=== PATIENT | female | born 1945 | race Caucasian/White ===

== ENCOUNTER 2017-01-06 07:40 | Day surgery (SDC) | payer OTHER ==
[~2017-01-06] VITALS: Ht 152.4 cm; Wt 95.0 kg
[~2017-01-06 07:40] MED LIST: ALBU18HF INH; AMLO-147; FLUT16SP17 NASAL; FLUT1DIS23 INH; MONT10TA21 PO
[2017-01-06] MEDS ORDERED: tylenol (09:39)
[2017-01-06] MEDS ORDERED: nifedipine (09:39)
[2017-01-06] MEDS ORDERED: hydrochlorothiazide (09:39)
[2017-01-06] MEDS ORDERED: losartan potassium (09:39)
[2017-01-06] MEDS ORDERED: atorvastatin (09:39)
[2017-01-06 09:59] VITALS: BP 239/100; PULSE 73; RESP 19
[2017-01-06 10:57] VITALS: BP 183/85; RESP 20
--- NOTE | 2017-01-07 05:42 | GILP ---
DATE OF PROCEDURE: 01/06/2017 PROCEDURE PERFORMED: Colonoscopy and polypectomy. Surgeon, Dae Kebede MD. PREOPERATIVE DIAGNOSIS: Screening colonoscopy. POSTOPERATIVE DIAGNOSES: 1. Colonoscopy all the way to the cecum. Sigmoid colon polyp was removed using the snare and electrocautery. 2. Diverticulosis of the colon. 3. Internal hemorrhoids. INDICATION: Ms. Prosper Gan is a 71-year-old female patient who was scheduled for screening colonoscopy. The procedure and possible complications were well explained to the patient. She understood and consented to the procedure. DESCRIPTION OF PROCEDURE: Under the influence of anesthesia, the colonoscope was carefully introduced in the rectum and under direct vision it was advanced all the way to the cecum. FINDINGS: There is a sigmoid colon polyp and it was removed using the snare and electrocautery. She was noted to have diverticulosis of the colon and internal hemorrhoids. She tolerated the procedure very well. There is no complications from the procedure. At the end of procedure she was awake with stable vital signs and she was discharged home in the care of her family. IMPRESSION: Please see postop diagnoses. PLAN: Await histopathology report. Next screening colonoscopy in 5 years. Dictated By: MD YUSEF Bird/luis e/adry /Document#: [id number]
[2017-01-07] MEDS ORDERED: LIDOCAINE 2% (SDV) 5 ML INJ ONE (18:02)
[2017-01-07] MEDS ORDERED: PROPOFOL 40 ML ONE (18:02)
== END 2017-01-06 10:51 | disposition home or self-care (01) ==
LOC: GIL 07:40
PROVIDERS: ATTEND Internal Medicine Gastroenterology
DX: Z12.11 Encounter for screening for malignant neoplasm of colon (principal); K57.90 Diverticulosis of intestine, part unspecified, without perforation or abscess without bleeding; K64.8 Other hemorrhoids; I10 Essential (primary) hypertension; E78.5 Hyperlipidemia, unspecified; E66.01 Morbid (severe) obesity due to excess calories; Z68.41 Body mass index [BMI] 40.0-44.9, adult; J45.909 Unspecified asthma, uncomplicated
CPT/HCPCS: 88305

== ENCOUNTER 2018-05-12 07:18 | Inpatient (IN) | END 2018-05-14 21:12 | DRG 470 ==

== ENCOUNTER 2018-11-22 11:48 | Inpatient (IN) | payer OTHER ==
[~2018-11-22] VITALS: Ht 157.5 cm; Wt 94.5 kg
[~2018-11-22 11:48] MED LIST changes: -ALBU18HF INH; +ALBU18HF INHALATION; -AMLO-147; +ATOR10TA65 PO; -FLUT16SP17 NASAL; -FLUT1DIS23 INH; +FOLI1CAP PO; +HYDR25TA6 PO; +LOSA100T15 PO; -MONT10TA21 PO
[2018-11-22 11:51] VITALS: Ht 157.5 cm; Wt 94.5 kg
--- NOTE | 2018-11-22 12:04 | ERD ---
ER Documentation Chief Complaint Chief Complaint chest pain, sob sent by pmd BEBETO The patient is a 72-year-old female, presenting to the ER because of substernal chest pain and acute dyspnea for the last 4 days, worse with exertion, complains of orthopnea, PND. He had similar symptoms previously, denies fever, chills, neck pain, abdominal pain, vomiting, dizzy, diarrhea. She did not take her medication this morning and went to see her doctor who sent her to the emergency department Past medical history: Dyslipidemia, hypertension, asthma, history of CHF, CKD, anemia, history of left peroneal vein thrombosis, hypothyroidism Surgical history: Left knee arthroplasty ROS All systems reviewed and are negative except as per history of present illness. Medications Home Meds Reported Medications Brinzolamide-Brimonidine (Simbrinza 1%-0.2% Oph) 1%-0.2% - 8 Ml Drops.susp, 1 DROP BOTH EYES TID, EA 11/22/18 Albuterol Sulfate* (Proair HFA*) 8.5 Gm Hfa.aer.ad, 2 PUFF INH Q4H PRN for WHEEZING AND SOB, #1 INHALER 11/22/18 Pantoprazole* (Pantoprazole*) 40 Mg Tablet.dr, 40 MG PO AC BREAKFAST, TAB 11/22/18 Nifedipine* (Nifedipine ER*) 30 Mg Tablet.sa, 30 MG PO DAILY, TAB.SA 11/22/18 [Nephro-Justo] No Conflict Check, 1 TAB PO DAILY PRN for DIRECTED 11/22/18 Losartan Potassium* (Losartan Potassium*) 50 Mg Tablet, 50 MG PO DAILY, TAB 11/22/18 Levothyroxine Sodium* (Levothyroxine Sodium*) 25 Mcg Tablet, 25 MCG PO BEFORE BREAKFAST, #30 TAB 11/22/18 Isosorbide Dinitrate* (Isordil*) 40 Mg Tablet, 40 MG PO TID, TAB 11/22/18 Hydralazine Hcl* (Hydralazine Hcl*) 100 Mg Tablet, 100 MG PO BID, #90 TAB 11/22/18 Furosemide* (Furosemide*) 40 Mg Tablet, 40 MG PO DAILY, TAB 11/22/18 Ferrous Sulfate* (Ferrous Sulfate*) 325 Mg Tabec, 325 MG PO DAILY, TAB 11/22/18 Clopidogrel Bisulfate* (Clopidogrel Bisulfate*) 75 Mg Tablet, 75 MG PO DAILY, #30 TAB 11/22/18 Carvedilol* (Carvedilol*) 6.25 Mg Tablet, 6.25 MG PO BID, #60 TAB 11/22/18 Capsaicin (Capsaicin) 42.5 Gm Cream.gm., 1 APPLIC TOP QID, #1 TUB 11/22/18 Atorvastatin Calcium (Atorvastatin Calcium) 10 Mg Tablet, 10 MG PO QHS, #30 TAB 11/22/18 Salmeterol Xinaf-Fluticasone* (Advair*) 100/50 Diskus Inhaler, 1 INH INHALATION BID, #1 INHALER 11/22/18 Discontinued Reported Medications Folic Acid/Vitamin B Comp W-C (Nephrocaps Capsule) 1 Mg Capsule, 1 MG PO DAILY, CAP 05/12/18 Hydrochlorothiazide* (Hydrochlorothiazide*) 25 Mg Tab, 25 MG PO DAILY, #30 TAB 05/12/18 Atorvastatin Calcium (Atorvastatin Calcium) 10 Mg Tablet, 10 MG PO QHS, #30 TAB 05/12/18 Albuterol Sulfate* (Ventolin HFA*) 18 Gm Hfa.aer.ad, 2 PUFF INHALATION Q4H, #1 INHALER 05/12/18 Losartan Potassium* (Losartan Potassium*) 100 Mg Tablet, 100 MG PO DAILY, TAB 05/12/18 Allergies Allergies: Coded Allergies: No Known Allergy (Unverified , 11/22/18) PMhx/Soc History of Surgery: Yes (LT knee 04/11/18) Anesthesia Reaction: No Hx Neurological Disorder: No Hx Respiratory Disorders: Yes (asthma) Hx Cardiac Disorders: Yes (HTN) Hx Psychiatric Problems: No Hx Miscellaneous Medical Probl: No Hx Alcohol Use: No Hx Substance Use: No Hx Tobacco Use: No Physical Exam Vitals Vital Signs Date Temp Pulse Resp B/P (MAP) Pulse Ox O2 O2 Flow FiO2 Time Delivery Rate 11/22/18 73 18 195/97 98 Nasal 13:26 (129) Cannula 11/22/18 74 18 184/105 98 Nasal 13:08 (131) Cannula 11/22/18 Nasal 2 12:20 Cannula 11/22/18 99.8 77 22 249/116 96 11:51 (160) Physical Exam Const: No acute distress. Head: Atraumatic. Eyes: Normal Conjunctiva. ENT: Normal External Ears, Nose and Mouth. Neck: Full range of motion. No meningismus. Resp: Bibasilar crackle Cardio: Regular rate and rhythm. Abd: Soft, non distended, normal bowel sounds, non tender. Skin: No petechiae or rashes. Back: No midline or flank tenderness. Ext: Mild bilateral leg edema, no calf tenderness Neur: Awake and alert. No focal deficit Psych: Normal Mood and Affect. Result Diagram: 11/22/18 1215 11/22/18 1215 Results 24 hrs Laboratory Tests Test 11/22/18 12:15 White Blood Count 6.2 10^3/ul Red Blood Count 3.30 10^6/ul Hemoglobin 9.7 g/dl Hematocrit 31.5 % Mean Corpuscular Volume 95.5 fl Mean Corpuscular Hemoglobin 29.4 pg Mean Corpuscular Hemoglobin Concent 30.8 g/dl Red Cell Distribution Width 14.1 % Platelet Count 233 10^3/UL Mean Platelet Volume 10.5 fl Immature Granulocytes % 0.500 % Neutrophils % 61.8 % Lymphocytes % 24.7 % Monocytes % 10.2 % Eosinophils % 1.8 % Basophils % 1.0 % Nucleated Red Blood Cells % 0.0 /100WBC Immature Granulocytes # 0.030 10^3/ul Neutrophils # 3.8 10^3/ul Lymphocytes # 1.5 10^3/ul Monocytes # 0.6 10^3/ul Eosinophils # 0.1 10^3/ul Basophils # 0.1 10^3/ul Nucleated Red Blood Cells # 0.0 10^3/ul Prothrombin Time 13.0 Sec Prothrombin Time Ratio 1.0 INR International Normalized Ratio 0.97 Activated Partial Thromboplast Time 32.8 Sec Sodium Level 145 mmol/L Potassium Level 4.8 mmol/L Chloride Level 112 mmol/L Carbon Dioxide Level 25 mmol/L Anion Gap 8 Blood Urea Nitrogen 39 mg/dl Creatinine 1.81 mg/dl Est Glomerular Filtrat Rate mL/min mL/min Glucose Level 97 mg/dl Calcium Level 8.6 mg/dl Total Bilirubin 0.3 mg/dl Direct Bilirubin 0.00 mg/dl Indirect Bilirubin 0.3 mg/dl Aspartate Amino Transf (AST/SGOT) 30 IU/L Alanine Aminotransferase (ALT/SGPT) 25 IU/L Alkaline Phosphatase 118 IU/L Troponin I < 0.012 ng/ml B-Type Natriuretic Peptide 3230 PG/ML Total Protein 8.0 g/dl Albumin 4.0 g/dl Globulin 4.00 g/dl Albumin/Globulin Ratio 1.00 Current Medications Medications Dose Sig/Nay Start Time Status Last (Trade) Ordered Route PRN Stop Time Admin Dose Reason Admin Aspirin 162 mg ONCE ONCE 11/22/18 DC 11/22/18 (Aspirin) PO 12:30 12:23 11/22/18 12:31 250 ml @ 0 TITRATE IV 11/22/18 11/22/18 Nitroglycerin mls/hr 12:30 12:34 / Dextrose Furosemide 40 mg ONCE ONCE 11/22/18 (Lasix) IV 14:30 11/22/18 14:31 Procedures/[place] [id number] Radiology Main Line: [phone] DIAGNOSTIC IMAGING REPORT Patient: FELIX WINTER : 1945 Age: 73 Sex: F MR #: [id number] DOS: 11/22/18 1212 Ordering MD: TERRANCE VO MD Location: E/R Room/Bed: PROCEDURE: XR Chest. CLINICAL INDICATION: SOB. TECHNIQUE: Single view chest x-ray. COMPARISON: SD CR CHEST 09/18/2017; CR PORT CHEST 07/27/2009 FINDINGS: Lines/Tubes: None. Mildly enlarged cardiac silhouette. Aortic atherosclerosis. No consolidation, pleural effusion, or pneumothorax is seen. The osseous structures are unremarkable. IMPRESSION: 1. No radiographic evidence of an acute cardiopulmonary process. 2. Mildly enlarged cardiac silhouette. Aortic atherosclerosis. RPTAT: BBDD Physician Renuka Date Time Electronically viewed and signed by Physician Renuka on 11/22/2018 13 :01 RP/ CC: TERRANCE VO MD [id number] EKG: Read by emergency physician Rate/Rhythm: Normal Sinus Rhythm 77beats/min QRS, ST, T-waves: No ST elevation, no T inversion Impression: Normal EKG MEDICAL MAKING DECISION: Patient is a 73-year-old female, presenting with acute hypertensive emergency, acute CHF exacerbation, acute chest pain. She was treated with nitroglycerin drip, aspirin 162 mg p.o. and Lasix 40 mg IV with good response The differential diagnoses considered include but are not limited to ACS, medical/dietary noncompliance, asthma, COPD, pneumonia, pulmonary embolus, pleural effusion, congestive heart failure. Critical Care: Time: 35 minutes excluding all billable procedures. Treatments/Evaluations: Close monitoring and treatment of unstable vital signs, cardiorespiratory, and neurologic status, while maintaining tight balance of fluid, respiratory, and cardiac interventions. Departure Diagnosis: Primary Impression: Hypertensive emergency Additional Impressions: CHF (congestive heart failure) Chest pain Anemia Condition: Critical Comments I discussed the findings with the patient. I discussed the patient with Dr Garcia garcía at 2:20 PM, who was made aware of the lab, the treatment, the patient condition. The patient is admitted to ICU Disclaimer: Inadvertent spelling and grammatical errors are likely due to EHR/dictation software use and do not reflect on the overall quality of patient care. Also, please note that the electronic time recorded on this note does not necessarily reflect the actual time of the patient encounter. TERRANCE VO MD Nov 22, 2018 12:04
[2018-11-22] MEDS ORDERED: ASPIRIN 81 MG TAB PO ONE (12:30)
[2018-11-22] MEDS: NITROGLYCERIN 50 MG/D5W (PMX) 250 ML IV SCH ×2 (12:34→23:37)
[2018-11-22] MEDS ORDERED: ATOR10TA65 PO (12:46)
[2018-11-22] MEDS ORDERED: ADV10050 INHALATION (12:46)
[2018-11-22] MEDS ORDERED: CAPS42.510 TOP (12:47)
[2018-11-22] MEDS ORDERED: CLOP75TA19 PO (12:50)
[2018-11-22] MEDS ORDERED: CARV6.2579 PO (12:50)
[2018-11-22] MEDS ORDERED: FER325 PO (12:51)
[2018-11-22] MEDS ORDERED: FURO40TA4 PO (12:52)
[2018-11-22] MEDS ORDERED: HYDR100T25 PO (12:52)
[2018-11-22] MEDS ORDERED: ISOS40TA15 PO (12:53)
[2018-11-22] MEDS ORDERED: LEVO25TA6 PO (12:54)
[2018-11-22] MEDS ORDERED: LOSA50TA14 PO (12:55)
[2018-11-22] MEDS ORDERED: NEPHRO-VITE PO (12:56)
[2018-11-22] MEDS ORDERED: NIFE30TA23 PO (12:56)
[2018-11-22] MEDS ORDERED: ALBU8.5H8 INH (12:57)
[2018-11-22] MEDS ORDERED: PANT40TA4 PO (12:57)
[2018-11-22] MEDS ORDERED: BRIN8DRO BOTH EYES (12:58)
[2018-11-22] MEDS ORDERED: FUROSEMIDE 40 MG INJ IV ONE ×2 (14:30→20:30)
--- NOTE | 2018-11-22 18:12 | HP ---
Date/Time of Note Date/Time of Note DATE: 11/22/18 TIME: 18:08 Assessment/Plan VTE Prophylaxis SCD applied (from Nsg): Yes Pharmacological prophylaxis: LMWH Lines/Catheters IV Catheter Type (from Nrsg): Peripheral IV Assessment/Plan Assessment/Plan -Chest pain, rule out acute coronary syndrome. Will obtain cardiac enzymes every 8 hours x3. Continue aspirin, nitroglycerin, morphine as needed for pain. Dr. Wren is asked to see patient in cardiology consultation. -Hypertensive emergency. Continue nitroglycerin gtt. Continue Coreg and Procardia. 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 -Dyslipidemia. -Hypothyroidism, continue levothyroxine -Anemia, multifactorial, iron deficiency anemia and of chronic disease -History of total knee replacement -PVD -Obesity with BMI of 38.1. -Asthma Further recommendations based on clinical course. Plan of care discussed with Dr. Segovia. Result Diagram: 11/22/18 1215 11/22/18 1215 Results 24hrs Laboratory Tests Test 11/22/18 12:15 White Blood Count 6.2 Red Blood Count 3.30 L Hemoglobin 9.7 L Hematocrit 31.5 L Mean Corpuscular Volume 95.5 Mean Corpuscular Hemoglobin 29.4 Mean Corpuscular Hemoglobin Concent 30.8 L Red Cell Distribution Width 14.1 Platelet Count 233 # Mean Platelet Volume 10.5 H Immature Granulocytes % 0.500 H Neutrophils % 61.8 Lymphocytes % 24.7 Monocytes % 10.2 Eosinophils % 1.8 Basophils % 1.0 Nucleated Red Blood Cells % 0.0 Immature Granulocytes # 0.030 Neutrophils # 3.8 Lymphocytes # 1.5 Monocytes # 0.6 Eosinophils # 0.1 Basophils # 0.1 Nucleated Red Blood Cells # 0.0 Prothrombin Time 13.0 Prothrombin Time Ratio 1.0 INR International Normalized Ratio 0.97 Activated Partial Thromboplast Time 32.8 Sodium Level 145 H Potassium Level 4.8 Chloride Level 112 H Carbon Dioxide Level 25 Anion Gap 8 Blood Urea Nitrogen 39 H Creatinine 1.81 H Est Glomerular Filtrat Rate mL/min Glucose Level 97 Calcium Level 8.6 Total Bilirubin 0.3 Direct Bilirubin 0.00 Indirect Bilirubin 0.3 Aspartate Amino Transf (AST/SGOT) 30 Alanine Aminotransferase (ALT/SGPT) 25 Alkaline Phosphatase 118 Troponin I < 0.012 B-Type Natriuretic Peptide 3230 H Total Protein 8.0 Albumin 4.0 Globulin 4.00 H Albumin/Globulin Ratio 1.00 HPI/ROS Admit Date/Time Admit Date/Time Hx of Present Illness The patient is 73-year-old female with history of hypertension, hyperlipidemia, congestive heart failure, chronic kidney disease, asthma, hypothyroidism, peripheral vascular disease and obesity. Patient developed substernal chest pain with acute dyspnea for the last couple of days and was seen in PMD office from which patient was sent for evaluation in the emergency room. Pain is substernal, currently constant, 7 out of 10 with no radiation. Patient also stated that she get shortness of breath with activity. In the emergency room patient noted to have hypertensive emergency and was started on nitroglycerin drip also given aspirin and Lasix. Patient denies any fever chills denies nausea vomiting diarrhea constipation. Patient will be admitted for further evaluation and management to telemetry floor. ROS 12 point review of system is negative except for what mentioned in HPI PMH/Family/Social Past Medical History Dyslipidemia, hypertension, asthma, history of CHF, CKD, anemia, history of left peroneal vein thrombosis, hypothyroidism Medications Current Medications Nitroglycerin/ Dextrose 250 ml @ 0 mls/hr TITRATE IV Last administered on 11/22/18at 12:34; Admin Dose 1.5 MLS/HR; Start 11/22/18 at 12:30 Coded Allergies: No Known Allergy (Unverified , 11/22/18) Past Surgical History Past Surgical Hx: other (Left knee arthroplasty in April 2018) Family History Significant Family History: no pertinent family hx Social History Alcohol Use: none Smoking Status: Never smoker Drug Use: none Exam/Review of Systems Vital Signs Vitals Vital Signs Date Temp Pulse Resp B/P (MAP) Pulse Ox O2 O2 Flow FiO2 Time Delivery Rate 11/22/18 99.8 70 25 180/86 96 Nasal 2.0 18:05 (117) Cannula Exam Constitutional: alert, oriented Head: normocephalic Neck: supple Respiratory: diminished breath sounds Cardiovascular: regular rate and rhythm Gastrointestinal: soft, non-tender Musculoskeletal: nl extremities to inspection Extremities: edema Neurological: nl mental status Skin: nl TRICE Mcdaniel Nov 22, 2018 18:12
[2018-11-22] MEDS ORDERED: NON-FORMULARY/PATIENT OWN MED ([Nephro-Vite] 1 TAB) PO PRN (18:30)
[2018-11-22] MEDS ORDERED: NACL 0.9% 3 ML SYG IV SCH (20:30)
[2018-11-22] MEDS ORDERED: ONDANSETRON 4 MG INJ IV PRN (20:30)
[2018-11-22] MEDS ORDERED: morphine 2 MG INJ IV PRN (20:30)
[2018-11-22] MEDS ORDERED: NITROGLYCERIN (SL) 0.4 MG TAB SL PRN (20:30)
[2018-11-22] MEDS ORDERED: MAGNESIUM HYDROXIDE 30ML CUP PO PRN (20:30)
[2018-11-22] MEDS ORDERED: ACETAMINOPHEN 325 MG TAB PO PRN (20:30)
[2018-11-22] MEDS ORDERED: DOCUSATE SODIUM 100 MG CAP PO PRN (20:30)
[2018-11-22] MEDS ORDERED: NON-FORMULARY/PATIENT OWN MED (Salmeterol Xinaf-Fluticasone* (Advair*) 1 INH) INHALATION SCH (21:00)
[2018-11-22] MEDS ORDERED: ISOSORBIDE DINITRATE 40 MG PO SCH (21:00)
[2018-11-22] MEDS: ATORVASTATIN 10 MG TAB PO SCH (21:27)
[2018-11-22] MEDS: FAMOTIDINE 20 MG TAB PO SCH (21:27)
[2018-11-22 23:16] VITALS: BP 149/85; RESP 18
[2018-11-22 23:30] VITALS: BP 146/75; PULSE 85; RESP 17
[2018-11-22 23:45] VITALS: BP 125/57; PULSE 80; RESP 21
[2018-11-23] VITALS (38 sets, daily range): BP systolic 103–171; BP diastolic 53–99; PULSE 60–89; RESP 10–34
[2018-11-23] MEDS: ZOLPIDEM 5 MG TAB PO PRN ×2 (00:20→22:26)
[2018-11-23] MEDS: ALBUTEROL HFA 8 GM INHALER INH PRN ×3 (00:28→14:56)
[2018-11-23] MEDS: LEVOTHYROXINE 25 MCG TAB PO SCH (06:40)
[2018-11-23] MEDS: PANTOPRAZOLE (EC) 40 MG TAB PO SCH (06:40)
[2018-11-23] MEDS: FERROUS SULFATE (EC) 325 MG TAB PO SCH (08:39)
[2018-11-23] MEDS: HYDROCODONE/APAP (5/325) TAB PO PRN ×2 (08:40→16:54)
[2018-11-23] MEDS: ASPIRIN 81 MG TAB PO SCH (08:40)
[2018-11-23] MEDS: CLOPIDOGREL 75 MG TAB PO SCH (08:41)
[2018-11-23] MEDS: LOSARTAN 50 MG TAB PO SCH (08:41)
[2018-11-23] MEDS: FLUTICASONE/VILANTEROL 100-25 INH SCH (10:00)
--- NOTE | 2018-11-23 11:00 | CONS ---
Consultation Date/Type/Reason Admit Date/Time Type of Consult Cardiology Date/Time of Note DATE: 11/23/18 TIME: 11:00 Hx of Present Illness r/o LA, con't HTN Rx # [id number] full note dictated Past Medical History Home Meds Reported Medications Brinzolamide-Brimonidine (Simbrinza 1%-0.2% Oph) 1%-0.2% - 8 Ml Drops.susp, 1 DROP BOTH EYES TID, EA 11/22/18 Albuterol Sulfate* (Proair HFA*) 8.5 Gm Hfa.aer.ad, 2 PUFF INH Q4H PRN for WHEEZING AND SOB, #1 INHALER 11/22/18 Pantoprazole* (Pantoprazole*) 40 Mg Tablet.dr, 40 MG PO AC BREAKFAST, TAB 11/22/18 Nifedipine* (Nifedipine ER*) 30 Mg Tablet.sa, 30 MG PO DAILY, TAB.SA 11/22/18 [Nephro-Justo] No Conflict Check, 1 TAB PO DAILY PRN for DIRECTED 11/22/18 Losartan Potassium* (Losartan Potassium*) 50 Mg Tablet, 50 MG PO DAILY, TAB 11/22/18 Levothyroxine Sodium* (Levothyroxine Sodium*) 25 Mcg Tablet, 25 MCG PO BEFORE BREAKFAST, #30 TAB 11/22/18 Isosorbide Dinitrate* (Isordil*) 40 Mg Tablet, 40 MG PO TID, TAB 11/22/18 Hydralazine Hcl* (Hydralazine Hcl*) 100 Mg Tablet, 100 MG PO BID, #90 TAB 11/22/18 Furosemide* (Furosemide*) 40 Mg Tablet, 40 MG PO DAILY, TAB 11/22/18 Ferrous Sulfate* (Ferrous Sulfate*) 325 Mg Tabec, 325 MG PO DAILY, TAB 11/22/18 Clopidogrel Bisulfate* (Clopidogrel Bisulfate*) 75 Mg Tablet, 75 MG PO DAILY, #30 TAB 11/22/18 Carvedilol* (Carvedilol*) 6.25 Mg Tablet, 6.25 MG PO BID, #60 TAB 11/22/18 Capsaicin (Capsaicin) 42.5 Gm Cream.gm., 1 APPLIC TOP QID, #1 TUB 11/22/18 Atorvastatin Calcium (Atorvastatin Calcium) 10 Mg Tablet, 10 MG PO QHS, #30 TAB 11/22/18 Salmeterol Xinaf-Fluticasone* (Advair*) 100/50 Diskus Inhaler, 1 INH INHALATION BID, #1 INHALER 11/22/18 Discontinued Reported Medications Folic Acid/Vitamin B Comp W-C (Nephrocaps Capsule) 1 Mg Capsule, 1 MG PO DAILY, CAP 05/12/18 Hydrochlorothiazide* (Hydrochlorothiazide*) 25 Mg Tab, 25 MG PO DAILY, #30 TAB 05/12/18 Atorvastatin Calcium (Atorvastatin Calcium) 10 Mg Tablet, 10 MG PO QHS, #30 TAB 05/12/18 Albuterol Sulfate* (Ventolin HFA*) 18 Gm Hfa.aer.ad, 2 PUFF INHALATION Q4H, #1 INHALER 05/12/18 Losartan Potassium* (Losartan Potassium*) 100 Mg Tablet, 100 MG PO DAILY, TAB 05/12/18 Medications Current Medications Albuterol (Ventolin Hfa) 2 puff Q4H RESP THERAPY PRN INH WHEEZING AND SOB Last administered on 11/23/18at 04:41; Admin Dose 2 PUFF; Start 11/22/18 at 18:30 Atorvastatin Calcium (Lipitor) 10 mg QHS PO Last administered on 11/22/18 21:27; Admin Dose 10 MG; Start 11/22/18 at 21:00 Carvedilol (Coreg) 6.25 mg BID PO Last administered on 11/23/18 08:40; Admin Dose 6.25 MG; Start 11/22/18 at 21:00 Clopidogrel Bisulfate (plaVIX) 75 mg DAILY PO Last administered on 11/23/18at 08:41; Admin Dose 75 MG; Start 11/23/18 at 09:00 Ferrous Sulfate (Ferrous Sulfate (Ec)) 325 mg DAILY PO Last administered on 11/23/18 08:39; Admin Dose 325 MG; Start 11/23/18 at 09:00 Furosemide (Lasix) 40 mg DAILY PO ; Start 11/23/18 at 09:00 Hydralazine HCl (Apresoline) 100 mg BID PO Last administered on 11/23/18 08:39; Admin Dose 100 MG; Start 11/22/18 at 21:00 Levothyroxine Sodium (Synthroid) 25 mcg BEFORE BREAKFAST PO Last administered on 11/23/18at 06:40; Admin Dose 25 MCG; Start 11/23/18 at 07:00 Losartan Potassium (Cozaar) 50 mg DAILY PO Last administered on 11/23/18 08:41; Admin Dose 50 MG; Start 11/23/18 at 09:00 Pantoprazole (Protonix Tab) 40 mg AC BREAKFAST PO Last administered on 11/23/18 06:40; Admin Dose 40 MG; Start 11/23/18 at 07:00 IV Flush (NS 3 ml) 3 ml PER PROTOCOL IV ; Start 11/22/18 at 20:30 Ondansetron HCl (Zofran Inj) 4 mg Q6H PRN IV NAUSEA/VOMITING; Start 11/22/18 at 20:30 Aspirin (Aspirin) 81 mg DAILY PO Last administered on 11/23/18 08:40; Admin Dose 81 MG; Start 11/23/18 at 09:00 Nitroglycerin (Nitroglycerin (Sl Tab) 0.4 Mg) 1 tab Q5M PRN SL .CHEST PAIN; Start 11/22/18 at 20:30 Acetaminophen (Tylenol Tab) 650 mg Q6H PRN PO .PAIN 1-3 OR TEMP; Start 11/22/18 at 20:30 Acetaminophen/ Hydrocodone Bitart ([place] (5/325)) 1 tab Q6H PRN PO .PAIN 4-6 Last administered on 11/23/18at 08:40; Admin Dose 1 TAB; Start 11/22/18 at 20:30 Morphine Sulfate (morphine) 2 mg Q4H PRN IV .PAIN 7-10; Start 11/22/18 at 20:30 Zolpidem Tartrate (Ambien) 5 mg QHS PRN PO .INSOMNIA Last administered on 11/23/18at 00:20; Admin Dose 5 MG; Start 11/22/18 at 20:30 Docusate Sodium (Colace) 100 mg Q12H PRN PO .CONSTIPATION; Start 11/22/18 at 20:30 Magnesium Hydroxide (Milk Of Mag) 30 ml DAILY PRN PO .CONSTIPATION; Start 11/13 at 20:30 Famotidine (Pepcid) 20 mg Q24H PO Last administered on 11/22/18at 21:27; Admin Dose 20 MG; Start 11/22/18 at 21:00 Multivit/Ca Carb/ B Cmplx/FA/Prenat (Wen-Justo) 1 tab DAILY PO ; Start 11/23/18 at 09:00 Isosorbide Dinitrate (Isordil) 40 mg TID PO ; Start 11/23/18 at 09:00 Fluticasone/ Vilanterol (Breo Ellipta 100-25 Mcg Inh) 1 inh DAILY INH ; Start 11/23/18 at 10:00 Allergies: Coded Allergies: No Known Allergy (Unverified , 11/22/18) Past Surgical History Past Surgical Hx: other (Left knee arthroplasty in April 2018) Social History Alcohol Use: none Smoking Status: Never smoker Drug Use: none Exam/Review of Systems Vital Signs Vitals Vital Signs Date Temp Pulse Resp B/P (MAP) Pulse Ox O2 O2 Flow FiO2 Time Delivery Rate 11/23/18 98.8 80 24 171/99 98 Nasal 2.0 08:00 (123) Cannula Intake and Output 11/22/18 11/22/18 11/23/18 1515:00 23:00 07:00 IntakeIntake Total 190 ml BalanceBalance 190 ml Labs Result Diagram: 11/23/18 0525 11/23/18 0525 Results 24hrs Laboratory Tests Test 11/22/18 12:15 11/23/18 00:30 11/23/18 05:25 White Blood Count 6.2 7.1 Red Blood Count 3.30 L 2.94 L Hemoglobin 9.7 L 8.7 L Hematocrit 31.5 L 28.0 L Mean Corpuscular Volume 95.5 95.2 Mean Corpuscular Hemoglobin 29.4 29.6 Mean Corpuscular Hemoglobin Concent 30.8 L 31.1 L Red Cell Distribution Width 14.1 14.2 Platelet Count 233 # 224 Mean Platelet Volume 10.5 H 10.9 H Immature Granulocytes % 0.500 H 0.400 Neutrophils % 61.8 67.8 Lymphocytes % 24.7 16.9 Monocytes % 10.2 13.2 H Eosinophils % 1.8 1.0 Basophils % 1.0 0.7 Nucleated Red Blood Cells % 0.0 0.0 Immature Granulocytes # 0.030 0.030 Neutrophils # 3.8 4.8 Lymphocytes # 1.5 1.2 Monocytes # 0.6 0.9 Eosinophils # 0.1 0.1 Basophils # 0.1 0.1 Nucleated Red Blood Cells # 0.0 0.0 Prothrombin Time 13.0 Prothrombin Time Ratio 1.0 INR International Normalized Ratio 0.97 Activated Partial Thromboplast Time 32.8 Sodium Level 145 H 141 Potassium Level 4.8 4.3 Chloride Level 112 H 108 Carbon Dioxide Level 25 25 Anion Gap 8 8 Blood Urea Nitrogen 39 H 40 H Creatinine 1.81 H 1.95 H Est Glomerular Filtrat Rate mL/min Glucose Level 97 101 Calcium Level 8.6 8.8 Total Bilirubin 0.3 0.4 Direct Bilirubin 0.00 0.00 Indirect Bilirubin 0.3 0.4 Aspartate Amino Transf (AST/SGOT) 30 25 Alanine Aminotransferase (ALT/SGPT) 25 19 Alkaline Phosphatase 118 83 Troponin I < 0.012 < 0.012 < 0.012 B-Type Natriuretic Peptide 3230 H Total Protein 8.0 6.7 # Albumin 4.0 3.6 Globulin 4.00 H 3.10 Albumin/Globulin Ratio 1.00 1.16 Creatine Kinase 97 91 Creatine Kinase Index 1.8 1.9 Creatinine Kinase MB (Mass) 1.78 1.77 Hemoglobin A1c 5.5 Triglycerides Level 63 Cholesterol Level 133 LDL Cholesterol, Calculated 66 HDL Cholesterol 54 Cholesterol/HDL Ratio 2.4 Thyroid Stimulating Hormone (TSH) 4.190 Medications Medications Current Medications Albuterol (Ventolin Hfa) 2 puff Q4H RESP THERAPY PRN INH WHEEZING AND SOB Last administered on 11/23/18 04:41; Admin Dose 2 PUFF; Start 11/22/18 at 18:30 Atorvastatin Calcium (Lipitor) 10 mg QHS PO Last administered on 11/22/18 21:27; Admin Dose 10 MG; Start 11/22/18 at 21:00 Carvedilol (Coreg) 6.25 mg BID PO Last administered on 11/23/18 08:40; Admin Dose 6.25 MG; Start 11/22/18 at 21:00 Clopidogrel Bisulfate (plaVIX) 75 mg DAILY PO Last administered on 11/23/18 08:41; Admin Dose 75 MG; Start 11/23/18 at 09:00 Ferrous Sulfate (Ferrous Sulfate (Ec)) 325 mg DAILY PO Last administered on 11/23/18 08:39; Admin Dose 325 MG; Start 11/23/18 at 09:00 Furosemide (Lasix) 40 mg DAILY PO ; Start 11/23/18 at 09:00 Hydralazine HCl (Apresoline) 100 mg BID PO Last administered on 11/23/18at 08:39; Admin Dose 100 MG; Start 11/22/18 at 21:00 Levothyroxine Sodium (Synthroid) 25 mcg BEFORE BREAKFAST PO Last administered on 11/23/18 06:40; Admin Dose 25 MCG; Start 11/23/18 at 07:00 Losartan Potassium (Cozaar) 50 mg DAILY PO Last administered on 11/23/18 08:41; Admin Dose 50 MG; Start 11/23/18 at 09:00 Pantoprazole (Protonix Tab) 40 mg AC BREAKFAST PO Last administered on 11/23/18 06:40; Admin Dose 40 MG; Start 11/23/18 at 07:00 IV Flush (NS 3 ml) 3 ml PER PROTOCOL IV ; Start 11/22/18 at 20:30 Ondansetron HCl (Zofran Inj) 4 mg Q6H PRN IV NAUSEA/VOMITING; Start 11/22/18 at 20:30 Aspirin (Aspirin) 81 mg DAILY PO Last administered on 11/23/18at 08:40; Admin Dose 81 MG; Start 11/23/18 at 09:00 Nitroglycerin (Nitroglycerin (Sl Tab) 0.4 Mg) 1 tab Q5M PRN SL .CHEST PAIN; Start 11/22/18 at 20:30 Acetaminophen (Tylenol Tab) 650 mg Q6H PRN PO .PAIN 1-3 OR TEMP; Start 11/22/18 at 20:30 Acetaminophen/ Hydrocodone Bitart ([place] (5/325)) 1 tab Q6H PRN PO .PAIN 4-6 Last administered on 11/23/18at 08:40; Admin Dose 1 TAB; Start 11/22/18 at 20:30 Morphine Sulfate (morphine) 2 mg Q4H PRN IV .PAIN 7-10; Start 11/22/18 at 20:30 Zolpidem Tartrate (Ambien) 5 mg QHS PRN PO .INSOMNIA Last administered on 11/23/18at 00:20; Admin Dose 5 MG; Start 11/22/18 at 20:30 Docusate Sodium (Colace) 100 mg Q12H PRN PO .CONSTIPATION; Start 11/22/18 at 20:30 Magnesium Hydroxide (Milk Of Mag) 30 ml DAILY PRN PO .CONSTIPATION; Start 11/22/18 at 20:30 Famotidine (Pepcid) 20 mg Q24H PO Last administered on 11/22/18at 21:27; Admin Dose 20 MG; Start 11/22/18 at 21:00 Multivit/Ca Carb/ B Cmplx/FA/Prenat (Wen-Justo) 1 tab DAILY PO ; Start 11/23/18 at 09:00 Isosorbide Dinitrate (Isordil) 40 mg TID PO ; Start 11/23/18 at 09:00 Fluticasone/ Vilanterol (Breo Ellipta 100-25 Mcg Inh) 1 inh DAILY INH ; Start 11/23/18 at 10:00 ADONAY PATEL MD Nov 23, 2018 11:00
[2018-11-23] MEDS: FUROSEMIDE 40 MG TAB PO SCH (14:58)
[2018-11-23] MEDS: MULTIVIT/CA CARB/B CMPLX/FA TAB PO SCH (14:58)
[2018-11-23] MEDS: ISOSORBIDE DINITRATE 20 MG TAB PO SCH ×3 (14:58→20:47)
[2018-11-23] MEDS ORDERED: EPOETIN ALFA-EPBX (NON-ESRD 10,000 UNIT/ML VIAL SC ONE (15:00)
--- NOTE | 2018-11-23 16:35 | PN ---
Date/Time of Note Date/Time of Note DATE: 11/23/18 TIME: 16:34 Assessment/Plan VTE Prophylaxis Risk score (from Ns)>0 risk: 9 SCD applied (from Ns): Yes Pharmacological prophylaxis: LMWH Lines/Catheters IV Catheter Type (from Nrsg): Peripheral IV Urinary Cath still in place: No Assessment/Plan Hospital Course Patient is weaned off nitroglycerin drip, blood pressure is better controlled, patient still complains of 2 out of 10 chest pain and shortness of breath, continue to monitor blood pressure Assessment/Plan -Chest pain, rule out acute coronary syndrome. Will obtain cardiac enzymes every 8 hours x3. Continue aspirin, nitroglycerin, morphine as needed for pain. Dr. Wren is asked to see patient in cardiology consultation. -Hypertensive emergency. Continue nitroglycerin gtt. Continue Coreg and Procardia. 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 -Dyslipidemia. -Hypothyroidism, continue levothyroxine -Anemia, multifactorial, iron deficiency anemia and of chronic disease -History of total knee replacement -PVD -Obesity with BMI of 38.1. -Asthma Further recommendations based on clinical course. Plan of care discussed with Dr. Segovia. Result Diagram: 11/23/1852411/23/18524 Results 24hrs Laboratory Tests Test 11/23/18 00:30 11/23/18 05:25 11/23/18 12:22 Creatine Kinase 97 91 104 Creatine Kinase Index 1.8 1.9 1.6 Creatinine Kinase MB (Mass) 1.78 1.77 1.67 Troponin I < 0.012 < 0.012 < 0.012 White Blood Count 7.1 Red Blood Count 2.94 L Hemoglobin 8.7 L Hematocrit 28.0 L Mean Corpuscular Volume 95.2 Mean Corpuscular Hemoglobin 29.6 Mean Corpuscular Hemoglobin Concent 31.1 L Red Cell Distribution Width 14.2 Platelet Count 224 Mean Platelet Volume 10.9 H Immature Granulocytes % 0.400 Neutrophils % 67.8 Lymphocytes % 16.9 Monocytes % 13.2 H Eosinophils % 1.0 Basophils % 0.7 Nucleated Red Blood Cells % 0.0 Immature Granulocytes # 0.030 Neutrophils # 4.8 Lymphocytes # 1.2 Monocytes # 0.9 Eosinophils # 0.1 Basophils # 0.1 Nucleated Red Blood Cells # 0.0 Sodium Level 141 Potassium Level 4.3 Chloride Level 108 Carbon Dioxide Level 25 Anion Gap 8 Blood Urea Nitrogen 40 H Creatinine 1.95 H Est Glomerular Filtrat Rate mL/min Glucose Level 101 Hemoglobin A1c 5.5 Calcium Level 8.8 Total Bilirubin 0.4 Direct Bilirubin 0.00 Indirect Bilirubin 0.4 Aspartate Amino Transf (AST/SGOT) 25 Alanine Aminotransferase (ALT/SGPT) 19 Alkaline Phosphatase 83 Total Protein 6.7 # Albumin 3.6 Globulin 3.10 Albumin/Globulin Ratio 1.16 Triglycerides Level 63 Cholesterol Level 133 LDL Cholesterol, Calculated 66 HDL Cholesterol 54 Cholesterol/HDL Ratio 2.4 Thyroid Stimulating Hormone (TSH) 4.190 Exam/Review of Systems Exam Vitals Vital Signs Date Temp Pulse Resp B/P (MAP) Pulse Ox O2 O2 Flow FiO2 Time Delivery Rate 11/23/18 75 15 159/81 100 Nasal 13:00 (107) Cannula 11/23/18 98.8 2.0 08:00 Intake and Output 11/22/18 11/22/18 11/23/18 1515:00 23:00 07:00 IntakeIntake Total 190 ml BalanceBalance 190 ml Exam Constitutional: alert, oriented Head: normocephalic Neck: supple Respiratory: diminished breath sounds Cardiovascular: regular rate and rhythm Gastrointestinal: soft, non-tender Musculoskeletal: nl extremities to inspection Extremities: edema Neurological: nl mental status Skin: nl turgor Results Results 24hrs Laboratory Tests Test 11/23/18 00:30 11/23/18 05:25 11/23/18 12:22 Creatine Kinase 97 91 104 Creatine Kinase Index 1.8 1.9 1.6 Creatinine Kinase MB (Mass) 1.78 1.77 1.67 Troponin I < 0.012 < 0.012 < 0.012 White Blood Count 7.1 Red Blood Count 2.94 L Hemoglobin 8.7 L Hematocrit 28.0 L Mean Corpuscular Volume 95.2 Mean Corpuscular Hemoglobin 29.6 Mean Corpuscular Hemoglobin Concent 31.1 L Red Cell Distribution Width 14.2 Platelet Count 224 Mean Platelet Volume 10.9 H Immature Granulocytes % 0.400 Neutrophils % 67.8 Lymphocytes % 16.9 Monocytes % 13.2 H Eosinophils % 1.0 Basophils % 0.7 Nucleated Red Blood Cells % 0.0 Immature Granulocytes # 0.030 Neutrophils # 4.8 Lymphocytes # 1.2 Monocytes # 0.9 Eosinophils # 0.1 Basophils # 0.1 Nucleated Red Blood Cells # 0.0 Sodium Level 141 Potassium Level 4.3 Chloride Level 108 Carbon Dioxide Level 25 Anion Gap 8 Blood Urea Nitrogen 40 H Creatinine 1.95 H Est Glomerular Filtrat Rate mL/min Glucose Level 101 Hemoglobin A1c 5.5 Calcium Level 8.8 Total Bilirubin 0.4 Direct Bilirubin 0.00 Indirect Bilirubin 0.4 Aspartate Amino Transf (AST/SGOT) 25 Alanine Aminotransferase (ALT/SGPT) 19 Alkaline Phosphatase 83 Total Protein 6.7 # Albumin 3.6 Globulin 3.10 Albumin/Globulin Ratio 1.16 Triglycerides Level 63 Cholesterol Level 133 LDL Cholesterol, Calculated 66 HDL Cholesterol 54 Cholesterol/HDL Ratio 2.4 Thyroid Stimulating Hormone (TSH) 4.190 Medications Medication Current Medications Albuterol (Ventolin Hfa) 2 puff Q4H RESP THERAPY PRN INH WHEEZING AND SOB Last administered on 11/23/18 14:56; Admin Dose 2 PUFF; Start 11/22/18 at 18:30 Atorvastatin Calcium (Lipitor) 10 mg QHS PO Last administered on 11/22/18 21:27; Admin Dose 10 MG; Start 11/22/18 at 21:00 Carvedilol (Coreg) 6.25 mg BID PO Last administered on 11/23/18 08:40; Admin Dose 6.25 MG; Start 11/22/18 at 21:00 Clopidogrel Bisulfate (plaVIX) 75 mg DAILY PO Last administered on 11/23/18 08:41; Admin Dose 75 MG; Start 11/23/18 at 09:00 Ferrous Sulfate (Ferrous Sulfate (Ec)) 325 mg DAILY PO Last administered on 11/23/18 08:39; Admin Dose 325 MG; Start 11/23/18 at 09:00 Furosemide (Lasix) 40 mg DAILY PO Last administered on 11/23/18 14:58; Admin Dose 40 MG; Start 11/23/18 at 09:00 Hydralazine HCl (Apresoline) 100 mg BID PO Last administered on 11/23/18 08:39; Admin Dose 100 MG; Start 11/22/18 at 21:00 Levothyroxine Sodium (Synthroid) 25 mcg BEFORE BREAKFAST PO Last administered on 11/23/18 06:40; Admin Dose 25 MCG; Start 11/23/18 at 07:00 Losartan Potassium (Cozaar) 50 mg DAILY PO Last administered on 11/23/18at 08:41; Admin Dose 50 MG; Start 11/23/18 at 09:00 Pantoprazole (Protonix Tab) 40 mg AC BREAKFAST PO Last administered on 11/23/18at 06:40; Admin Dose 40 MG; Start 11/23/18 at 07:00 IV Flush (NS 3 ml) 3 ml PER PROTOCOL IV ; Start 11/22/18 at 20:30 Ondansetron HCl (Zofran Inj) 4 mg Q6H PRN IV NAUSEA/VOMITING; Start 11/22/18 at 20:30 Aspirin (Aspirin) 81 mg DAILY PO Last administered on 11/23/18 08:40; Admin Dose 81 MG; Start 11/23/18 at 09:00 Nitroglycerin (Nitroglycerin (Sl Tab) 0.4 Mg) 1 tab Q5M PRN SL .CHEST PAIN; Start 11/22/18 at 20:30 Acetaminophen (Tylenol Tab) 650 mg Q6H PRN PO .PAIN 1-3 OR TEMP; Start 11/22/18 at 20:30 Acetaminophen/ Hydrocodone Bitart ([place] (5/325)) 1 tab Q6H PRN PO .PAIN 4-6 Last administered on 11/23/18at 08:40; Admin Dose 1 TAB; Start 11/22/18 at 20:30 Morphine Sulfate (morphine) 2 mg Q4H PRN IV .PAIN 7-10 Last administered on 11/23/18at 14:59; Admin Dose 2 MG; Start 11/22/18 at 20:30 Zolpidem Tartrate (Ambien) 5 mg QHS PRN PO .INSOMNIA Last administered on 11/23/18at 00:20; Admin Dose 5 MG; Start 11/22/18 at 20:30 Docusate Sodium (Colace) 100 mg Q12H PRN PO .CONSTIPATION; Start 11/22/18 at 20:30 Magnesium Hydroxide (Milk Of Mag) 30 ml DAILY PRN PO .CONSTIPATION; Start 11/22/18 at 20:30 Famotidine (Pepcid) 20 mg Q24H PO Last administered on 11/22/18at 21:27; Admin Dose 20 MG; Start 11/22/18 at 21:00 Multivit/Ca Carb/ B Cmplx/FA/Prenat (Wen-Justo) 1 tab DAILY PO Last administered on 11/23/18at 14:58; Admin Dose 1 TAB; Start 11/23/18 at 09:00 Isosorbide Dinitrate (Isordil) 40 mg TID PO Last administered on 11/23/18at 14:58; Admin Dose 40 MG; Start 11/23/18 at 09:00 Fluticasone/ Vilanterol (Breo Ellipta 100-25 Mcg Inh) 1 inh DAILY INH ; Start 11/23/18 at 10:00 Nifedipine (Procardia Xl) 60 mg BID PO ; Start 11/23/18 at 21:00 TRICE ZAMORA Nov 23, 2018 16:35
[2018-11-23] MEDS: FAMOTIDINE 20 MG TAB PO SCH (20:43)
[2018-11-23] MEDS: ATORVASTATIN 10 MG TAB PO SCH (20:43)
[2018-11-23] MEDS: NIFEdipine (XL) 60 MG TAB PO SCH (20:46)
[2018-11-24] VITALS (11 sets, daily range): BP systolic 121–130; BP diastolic 57–65; PULSE 73–87; RESP 16–20
[2018-11-24] MEDS: LEVOTHYROXINE 25 MCG TAB PO SCH (06:40)
[2018-11-24] MEDS: PANTOPRAZOLE (EC) 40 MG TAB PO SCH (06:40)
--- NOTE | 2018-11-24 06:55 | CONS ---
DATE OF ADMISSION: 11/22/2018 DATE OF CONSULTATION: 11/23/2018 TYPE OF CONSULTATION: Cardiology. REFERRING PHYSICIAN: Yoshi Garg MD REASON FOR EVALUATION: Hypertensive emergency. HISTORY OF PRESENT ILLNESS: Ms. Layton is a 73-year-old woman with history of hypertension, dys lipidemia, history of heart failure with preserved ejection fraction, prior history of renal insuffic iency, history of peripheral arterial disease, who came to the hospital now for evaluation of hyperte nsive urgency. She had prior presentation to the hospital with similar complaints when she presented with high blood pressure. The patient said she has not been feeling well for several days, but ther e is no acute precipitating cause of decompensation. She appears to be compliant with her medical th erapy. The patient has been treated here was nitro drip which responded well and now her blood press ure is much better controlled. For now, we will continue medical optimization, will keep the patient euvolemic. We are going to try to convert her to p.o. medications. She already ruled out for acute myocardial infarction. PAST MEDICAL HISTORY: 1. Hypertension. 2. Dyslipidemia. 3. History of renal insufficiency and progressive renal malfunction to 1.95 creatinine. 4. History of heart failure with preserved ejection fraction. 5. History of possible medical noncompliance. 6. History of obesity. ALLERGIES: No known drug allergies. SOCIAL HISTORY: The patient does not smoke, does not drink, does not use drugs. FAMILY HISTORY: Negative for sudden cardiac or premature coronary artery disease. MEDICATIONS: The patient is on: 1. Corticosteroids. 2. Plavix 75 mg once a day. 3. Lasix 40 mg p.o. once a day. 4. Potassium 50 mg p.o. once a day. 5. Aspirin 81 mg a day. 6. Isosorbide dinitrate 40 mg p.o. t.i.d. 7. Coreg 6.25 mg IV. 8. Hydralazine 100 mg p.o. b.i.d. 9. Famotidine. 10. Magnesium hydroxide. REVIEW OF SYSTEMS: CONSTITUTIONAL: No fevers, no chills, no recent weight. No changes in vision or hearing. CARDIAC: Chest pain reported now. RESPIRATORY: Short of breath, acute on chronic, better now. GASTROINTESTINAL: No nausea, vomiting, diarrhea, constipation. GENITOURINARY: No dysuria, hematuria. NEUROLOGIC: No focal deficits. HEMATOLOGIC: . PSYCHIATRIC: No anxiety. PHYSICAL EXAMINATION: VITAL SIGNS: Temperature on presentation was very high but now she is 130/62, heart rate 67, . GENERAL: She is an obese woman in no distress, alert and oriented x3, in [place]og[place], aware of her condi tion. HEENT: Normocephalic, atraumatic. Eyes intact. NECK: Supple. JVD 6-7 cm. There is no lymphadenopathy, no thyromegaly. HEART: Regular, soft holosystolic murmur. PMI is minimally displaced. LUNGS: Coarse to base. ABDOMEN: Distended, bowel sounds are present. There is no hepatosplenomegaly. EXTREMITIES: . Trace edema. ECG read by me, sinus rhythm with some nonspecific ST changes. LABORATORY DATA: 0.7, platelets 224. INR 0.9. Sodium 141, potassium 4.7, BUN is 40, creatinin e 1.4. Troponin is negative at 0.012 x3. ASSESSMENT AND PLAN: Hypertensive urgency. Blood pressure is better now. We will continue to optim ize medical regimen as indicated. We will try to avoid nephrotoxic medication in a setting of increa sed creatinine. 1. Chest pain. The patient did not rule in for ischemia. Troponins are negative. Medical followup expected. 2. Heart failure, diastolic, acute on chronic. Continue patient with gentle diuresis with Lasix. 3. Renal insufficiency. Creatinine is high at 1.95. Continue with nephrotoxic medication. Dr. Pa robb follows. 4. Anemia. Hemoglobin is fairly stable. There is no evidence of bleeding. Continue to monitor sarah beth sely. I would like to thank Dr. Garg for referring this patient for my evaluation. Dictated By: ADONAY PATEL MD ML/NTS Conf#: [id number] DID#: [id number] CC: YOSHI GARG MD;*EndCC*
[2018-11-24] MEDS: MULTIVIT/CA CARB/B CMPLX/FA TAB PO SCH (08:16)
[2018-11-24] MEDS: ASPIRIN 81 MG TAB PO SCH (08:16)
[2018-11-24] MEDS: FERROUS SULFATE (EC) 325 MG TAB PO SCH (08:17)
[2018-11-24] MEDS: CLOPIDOGREL 75 MG TAB PO SCH (08:17)
[2018-11-24] MEDS: ISOSORBIDE DINITRATE 20 MG TAB PO SCH ×3 (08:19→20:12)
[2018-11-24] MEDS: FUROSEMIDE 40 MG TAB PO SCH (08:19)
[2018-11-24] MEDS: NIFEdipine (XL) 60 MG TAB PO SCH ×2 (08:20→20:11)
[2018-11-24] MEDS: LOSARTAN 50 MG TAB PO SCH (08:20)
[2018-11-24] MEDS: FLUTICASONE/VILANTEROL 100-25 INH SCH (08:21)
--- NOTE | 2018-11-24 14:36 | CONS ---
Assessment/Plan Assessment/Plan Hospital Course (Demo Recall) IMp: 1.chest pain-neg trop x 3/NL EF by echo 07/03 2.HTN-improved on current regimen 3.renal failure 4.HYpothyroid 5. PAD Recc: -Tele -Contineu procardia/losartan/coreg/hydralazine -Continue isordil -Contineu asa/plavix -Continue lasix -Will consider stres testing in am to further assess Consultation Date/Type/Reason Admit Date/Time Nov 22, 2018 at 14:27 Initial Consult Date 11/23/18 Type of Consult Cardiology Reason for Consultation HTN Requesting Provider: YOSHI GARG MD Date/Time of Note DATE: 11/24/18 TIME: 14:30 Exam/Review of Systems Vital Signs Vitals Vital Signs Date Temp Pulse Resp B/P (MAP) Pulse Ox O2 O2 Flow FiO2 Time Delivery Rate 11/24/18 77 12:00 11/24/18 98.2 20 121/57 Nasal 11:19 (78) Cannula 11/24/18 98 08:22 11/23/18 2.0 08:00 Intake and Output 11/23/18 11/23/18 11/24/18 1414:59 22:59 06:59 IntakeIntake Total 400 ml 1280 ml BalanceBalance 400 ml 1280 ml Exam Exam Review of Systems: CONSTITUTIONAL: No fevers, chills. PULMONARY: No sob CARDIOVASCULAR:c/o chest pain GASTROINTESTINAL: No nausea/vomiting. GENITOURINARY: No hematuria/dysuria. MUSCULOSKELETAL: No myagias/arthalgias. PSYCHIATRIC: The patient denies depression. NEUROLOGIC: No weakness Constitutional: alert Psych: no complaints Head: normocephalic ENMT: mucosa pink and moist Neck: supple, jvd (9 cm water) Respiratory: diminished breath sounds (at bases/B) Cardiovascular: regular rate and rhythm Gastrointestinal: soft, non-tender Musculoskeletal: muscle tone (normal) Extremities: edema (none) Neurological: other (No focal deficits) Labs Result Diagram: 11/23/18 0511/23/18 05 Medications Medications Current Medications Albuterol (Ventolin Hfa) 2 puff Q4H RESP THERAPY PRN INH WHEEZING AND SOB Last administered on 11/23/18at 14:56; Admin Dose 2 PUFF; Start 11/22/18 at 18:30 Atorvastatin Calcium (Lipitor) 10 mg QHS PO Last administered on 11/23/18at 20:43; Admin Dose 10 MG; Start 11/22/18 at 21:00 Carvedilol (Coreg) 6.25 mg BID PO Last administered on 11/24/18 08:20; Admin Dose 6.25 MG; Start 11/22/18 at 21:00 Clopidogrel Bisulfate (plaVIX) 75 mg DAILY PO Last administered on 11/24/18 08:17; Admin Dose 75 MG; Start 11/23/18 at 09:00 Ferrous Sulfate (Ferrous Sulfate (Ec)) 325 mg DAILY PO Last administered on 11/24/18 08:17; Admin Dose 325 MG; Start 11/23/18 at 09:00 Furosemide (Lasix) 40 mg DAILY PO Last administered on 11/24/18 08:19; Admin Dose 40 MG; Start 11/23/18 at 09:00 Hydralazine HCl (Apresoline) 100 mg BID PO Last administered on 11/24/18 08:21; Admin Dose 100 MG; Start 11/22/18 at 21:00 Levothyroxine Sodium (Synthroid) 25 mcg BEFORE BREAKFAST PO Last administered on 11/24/18 06:40; Admin Dose 25 MCG; Start 11/23/18 at 07:00 Losartan Potassium (Cozaar) 50 mg DAILY PO Last administered on 11/24/18 08:20; Admin Dose 50 MG; Start 11/23/18 at 09:00 Pantoprazole (Protonix Tab) 40 mg AC BREAKFAST PO Last administered on 11/24/18 06:40; Admin Dose 40 MG; Start 11/23/18 at 07:00 IV Flush (NS 3 ml) 3 ml PER PROTOCOL IV ; Start 11/22/18 at 20:30 Ondansetron HCl (Zofran Inj) 4 mg Q6H PRN IV NAUSEA/VOMITING; Start 11/22/18 at 20:30 Aspirin (Aspirin) 81 mg DAILY PO Last administered on 11/24/18 08:16; Admin Dose 81 MG; Start 11/23/18 at 09:00 Nitroglycerin (Nitroglycerin (Sl Tab) 0.4 Mg) 1 tab Q5M PRN SL .CHEST PAIN; Start 11/22/18 at 20:30 Acetaminophen (Tylenol Tab) 650 mg Q6H PRN PO .PAIN 1-3 OR TEMP; Start 11/22/18 at 20:30 Acetaminophen/ Hydrocodone Bitart ([place] (5/325)) 1 tab Q6H PRN PO .PAIN 4-6 L ast administered on 11/23/18 16:54; Admin Dose 1 TAB; Start 11/22/18 at 20:30 Morphine Sulfate (morphine) 2 mg Q4H PRN IV .PAIN 7-10 Last administered on 11/23/18 14:59; Admin Dose 2 MG; Start 11/22/18 at 20:30 Zolpidem Tartrate (Ambien) 5 mg QHS PRN PO .INSOMNIA Last administered on 11/23/18 22:26; Admin Dose 5 MG; Start 11/22/18 at 20:30 Docusate Sodium (Colace) 100 mg Q12H PRN PO .CONSTIPATION; Start 11/22/18 at 20:30 Magnesium Hydroxide (Milk Of Mag) 30 ml DAILY PRN PO .CONSTIPATION; Start 11/22/18 at 20:30 Famotidine (Pepcid) 20 mg Q24H PO Last administered on 11/23/18 20:43; Admin Dose 20 MG; Start 11/22/18 at 21:00 Multivit/Ca Carb/ B Cmplx/FA/Prenat (Wen-Justo) 1 tab DAILY PO Last administered on 11/24/18 08:16; Admin Dose 1 TAB; Start 11/23/18 at 09:00 Isosorbide Dinitrate (Isordil) 40 mg TID PO Last administered on 11/24/18 13:19; Admin Dose 40 MG; Start 11/23/18 at 09:00 Fluticasone/ Vilanterol (Breo Ellipta 100-25 Mcg Inh) 1 inh DAILY INH Last administered on 11/24/18 08:21; Admin Dose 1 INH; Start 11/23/18 at 10:00 Nifedipine (Procardia Xl) 60 mg BID PO Last administered on 11/24/18 08:20; Admin Dose 60 MG; Start 11/23/18 at 21:00 KERMIT DONOHUE 12, 2019 14:36
--- NOTE | 2018-11-24 15:33 | PN ---
Date/Time of Note Date/Time of Note DATE: 11/24/18 TIME: 15:30 Assessment/Plan VTE Prophylaxis Risk score (from Nsg)>0 risk: 4 SCD applied (from Nsg): Yes Pharmacological prophylaxis: other Lines/Catheters IV Catheter Type (from Nrsg): Saline Lock Urinary Cath still in place: No Assessment/Plan Hospital Course Patient complains of chest pain at rest, blood pressure is better controlled, continue current care, telemetry monitoring. Assessment/Plan -Chest pain, rule out acute coronary syndrome. cardiac enzymes negative x3. Continue aspirin, Plavix, nitroglycerin, morphine as needed for pain. Dr. Wren is following in cardiology consultation. -Hypertensive emergency. S/p nitroglycerin gtt. Continue Coreg and Procardia. 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 -Dyslipidemia. -Hypothyroidism, continue levothyroxine -Anemia, multifactorial, iron deficiency anemia and of chronic disease -History of total knee replacement -PVD -Obesity with BMI of 38.1. -Asthma Further recommendations based on clinical course. Plan of care discussed with Dr. Segovia. Result Diagram: 11/23/1852411/23/18524 Exam/Review of Systems Exam Vitals Vital Signs Date Temp Pulse Resp B/P (MAP) Pulse Ox O2 O2 Flow FiO2 Time Delivery Rate 11/24/18 98.3 86 20 121/59 98 Nasal 15:02 (79) Cannula 11/23/18 2.0 08:00 Intake and Output 11/23/18 11/23/18 11/24/18 1515:00 23:00 07:00 IntakeIntake Total 400 ml 1280 ml BalanceBalance 400 ml 1280 ml Exam Constitutional: alert, oriented Respiratory: diminished breath sounds Cardiovascular: regular rate and rhythm Gastrointestinal: soft, non-tender Musculoskeletal: nl extremities to inspection Extremities: edema Neurological: nl mental status Skin: nl turgor Medications Medication Current Medications Albuterol (Ventolin Hfa) 2 puff Q4H RESP THERAPY PRN INH WHEEZING AND SOB Last administered on 11/23/18at 14:56; Admin Dose 2 PUFF; Start 11/22/18 at 18:30 Atorvastatin Calcium (Lipitor) 10 mg QHS PO Last administered on 11/23/18at 20:43; Admin Dose 10 MG; Start 11/22/18 at 21:00 Carvedilol (Coreg) 6.25 mg BID PO Last administered on 11/24/18 08:20; Admin Dose 6.25 MG; Start 11/22/18 at 21:00 Clopidogrel Bisulfate (plaVIX) 75 mg DAILY PO Last administered on 11/24/18 08:17; Admin Dose 75 MG; Start 11/23/18 at 09:00 Ferrous Sulfate (Ferrous Sulfate (Ec)) 325 mg DAILY PO Last administered on 11/24/18 08:17; Admin Dose 325 MG; Start 11/23/18 at 09:00 Furosemide (Lasix) 40 mg DAILY PO Last administered on 11/24/18 08:19; Admin Dose 40 MG; Start 11/23/18 at 09:00 Hydralazine HCl (Apresoline) 100 mg BID PO Last administered on 11/24/18 08:21; Admin Dose 100 MG; Start 11/22/18 at 21:00 Levothyroxine Sodium (Synthroid) 25 mcg BEFORE BREAKFAST PO Last administered on 11/24/18 06:40; Admin Dose 25 MCG; Start 11/23/18 at 07:00 Losartan Potassium (Cozaar) 50 mg DAILY PO Last administered on 11/24/18 08:20; Admin Dose 50 MG; Start 11/23/18 at 09:00 Pantoprazole (Protonix Tab) 40 mg AC BREAKFAST PO Last administered on 11/24/18 06:40; Admin Dose 40 MG; Start 11/23/18 at 07:00 IV Flush (NS 3 ml) 3 ml PER PROTOCOL IV ; Start 11/22/18 at 20:30 Ondansetron HCl (Zofran Inj) 4 mg Q6H PRN IV NAUSEA/VOMITING; Start 11/22/18 at 20:30 Aspirin (Aspirin) 81 mg DAILY PO Last administered on 11/24/18 08:16; Admin Dose 81 MG; Start 11/23/18 at 09:00 Nitroglycerin (Nitroglycerin (Sl Tab) 0.4 Mg) 1 tab Q5M PRN SL .CHEST PAIN; Start 11/22/18 at 20:30 Acetaminophen (Tylenol Tab) 650 mg Q6H PRN PO .PAIN 1-3 OR TEMP; Start 11/22/18 at 20:30 Acetaminophen/ Hydrocodone Bitart ([place] (5/325)) 1 tab Q6H PRN PO .PAIN 4-6 Last administered on 11/23/18 16:54; Admin Dose 1 TAB; Start 11/22/18 at 20:30 Morphine Sulfate (morphine) 2 mg Q4H PRN IV .PAIN 7-10 Last administered on 11/23/18 14:59; Admin Dose 2 MG; Start 11/22/18 at 20:30 Zolpidem Tartrate (Ambien) 5 mg QHS PRN PO .INSOMNIA Last administered on 11/23/18 22:26; Admin Dose 5 MG; Start 11/22/18 at 20:30 Docusate Sodium (Colace) 100 mg Q12H PRN PO .CONSTIPATION; Start 11/22/18 at 20:30 Magnesium Hydroxide (Milk Of Mag) 30 ml DAILY PRN PO .CONSTIPATION; Start 11/22/18 at 20:30 Famotidine (Pepcid) 20 mg Q24H PO Last administered on 11/23/18 20:43; Admin Dose 20 MG; Start 11/22/18 at 21:00 Multivit/Ca Carb/ B Cmplx/FA/Prenat (Wen-Justo) 1 tab DAILY PO Last admin istered on 11/24/18 08:16; Admin Dose 1 TAB; Start 11/23/18 at 09:00 Isosorbide Dinitrate (Isordil) 40 mg TID PO Last administered on 11/24/18 13:19; Admin Dose 40 MG; Start 11/23/18 at 09:00 Fluticasone/ Vilanterol (Breo Ellipta 100-25 Mcg Inh) 1 inh DAILY INH Last administered on 11/24/18 08:21; Admin Dose 1 INH; Start 11/23/18 at 10:00 Nifedipine (Procardia Xl) 60 mg BID PO Last administered on 11/24/18 08:20; Admin Dose 60 MG; Start 11/23/18 at 21:00 TRICE ZAMORA Nov 24, 2018 15:33
[2018-11-24] MEDS: ATORVASTATIN 10 MG TAB PO SCH (20:11)
[2018-11-24] MEDS: FAMOTIDINE 20 MG TAB PO SCH (20:12)
[2018-11-24] MEDS: ZOLPIDEM 5 MG TAB PO PRN (22:13)
[2018-11-25] VITALS (11 sets, daily range): BP systolic 95–144; BP diastolic 50–74; PULSE 61–82; RESP 18–48
[2018-11-25] MEDS: PANTOPRAZOLE (EC) 40 MG TAB PO SCH (05:36)
[2018-11-25] MEDS: LEVOTHYROXINE 25 MCG TAB PO SCH (05:36)
[2018-11-25] MEDS: MULTIVIT/CA CARB/B CMPLX/FA TAB PO SCH (09:00)
[2018-11-25] MEDS: ASPIRIN 81 MG TAB PO SCH (09:00)
[2018-11-25] MEDS: FERROUS SULFATE (EC) 325 MG TAB PO SCH (09:00)
[2018-11-25] MEDS: FUROSEMIDE 40 MG TAB PO SCH (09:00)
[2018-11-25] MEDS: NIFEdipine (XL) 60 MG TAB PO SCH ×2 (09:00→21:23)
[2018-11-25] MEDS: CLOPIDOGREL 75 MG TAB PO SCH (09:00)
[2018-11-25] MEDS: ISOSORBIDE DINITRATE 20 MG TAB PO SCH ×3 (09:00→21:22)
[2018-11-25] MEDS: LOSARTAN 50 MG TAB PO SCH (09:00)
[2018-11-25] MEDS: FLUTICASONE/VILANTEROL 100-25 INH SCH (09:11)
--- NOTE | 2018-11-25 11:54 | PN ---
Date/Time of Note Date/Time of Note DATE: 11/25/18 TIME: 11:53 Assessment/Plan VTE Prophylaxis Risk score (from Nsg)>0 risk: 4 SCD applied (from Nsg): Yes Pharmacological prophylaxis: LMWH Lines/Catheters IV Catheter Type (from Nrsg): Saline Lock Urinary Cath still in place: No Assessment/Plan Hospital Course Patient will undergo stress test today, still complains of small amount of chest pain, blood pressure is well controlled. Assessment/Plan -Chest pain, rule out acute coronary syndrome. cardiac enzymes negative x3. Continue aspirin, Plavix, nitroglycerin, morphine as needed for pain. Dr. Wren is following in cardiology consultation. -Hypertensive emergency. S/p nitroglycerin gtt. Continue Coreg and Procardia. 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 -Dyslipidemia. -Hypothyroidism, continue levothyroxine -Anemia, multifactorial, iron deficiency anemia and of chronic disease -History of total knee replacement -PVD -Obesity with BMI of 38.1. -Asthma, continue breathing treatment as needed. Further recommendations based on clinical course. Plan of care discussed with Dr. Segovia. Result Diagram: 11/23/1852411/23/18 05 Exam/Review of Systems Exam Vitals Vital Signs Date Temp Pulse Resp B/P (MAP) Pulse Ox O2 O2 Flow FiO2 Time Delivery Rate 11/25/18 97.4 71 20 118/74 99 11:00 (89) 11/25/18 Nasal 07:18 Cannula 11/23/18 2.0 08:00 Intake and Output 11/24/18 11/24/18 11/25/18 1515:00 23:00 07:00 IntakeIntake Total 720 ml 800 ml BalanceBalance 720 ml 800 ml Exam Constitutional: alert, oriented Respiratory: diminished breath sounds Cardiovascular: regular rate and rhythm Gastrointestinal: soft, non-tender Musculoskeletal: nl extremities to inspection Extremities: edema Neurological: nl mental status Skin: nl turgor Medications Medication Current Medications Albuterol (Ventolin Hfa) 2 puff Q4H RESP THERAPY PRN INH WHEEZING AND SOB Last administered on 11/23/18at 14:56; Admin Dose 2 PUFF; Start 11/22/18 at 18:30 Atorvastatin Calcium (Lipitor) 10 mg QHS PO Last administered on 11/24/18at 20:11; Admin Dose 10 MG; Start 11/22/18 at 21:00 Carvedilol (Coreg) 6.25 mg BID PO Last administered on 11/24/18 20:11; Admin Dose 6.25 MG; Start 11/22/18 at 21:00 Clopidogrel Bisulfate (plaVIX) 75 mg DAILY PO Last administered on 11/24/18 08:17; Admin Dose 75 MG; Start 11/23/18 at 09:00 Ferrous Sulfate (Ferrous Sulfate (Ec)) 325 mg DAILY PO Last administered on 11/24/18 08:17; Admin Dose 325 MG; Start 11/23/18 at 09:00 Furosemide (Lasix) 40 mg DAILY PO Last administered on 11/24/18 08:19; Admin Dose 40 MG; Start 11/23/18 at 09:00 Hydralazine HCl (Apresoline) 100 mg BID PO Last administered on 11/24/18 20:11; Admin Dose 100 MG; Start 11/22/18 at 21:00 Levothyroxine Sodium (Synthroid) 25 mcg BEFORE BREAKFAST PO Last administered on 11/24/18 06:40; Admin Dose 25 MCG; Start 11/23/18 at 07:00 Losartan Potassium (Cozaar) 50 mg DAILY PO Last administered on 11/24/18 08:20; Admin Dose 50 MG; Start 11/23/18 at 09:00 Pantoprazole (Protonix Tab) 40 mg AC BREAKFAST PO Last administered on 11/24/18 06:40; Admin Dose 40 MG; Start 11/23/18 at 07:00 IV Flush (NS 3 ml) 3 ml PER PROTOCOL IV ; Start 11/22/18 at 20:30 Ondansetron HCl (Zofran Inj) 4 mg Q6H PRN IV NAUSEA/VOMITING; Start 11/22/18 at 20:30 Aspirin (Aspirin) 81 mg DAILY PO Last administered on 11/24/18 08:16; Admin Dose 81 MG; Start 11/23/18 at 09:00 Nitroglycerin (Nitroglycerin (Sl Tab) 0.4 Mg) 1 tab Q5M PRN SL .CHEST PAIN; Start 11/22/18 at 20:30 Acetaminophen (Tylenol Tab) 650 mg Q6H PRN PO .PAIN 1-3 OR TEMP; Start 11/22/18 at 20:30 Acetaminophen/ Hydrocodone Bitart ([place] (5/325)) 1 tab Q6H PRN PO .PAIN 4-6 Last administered on 11/23/18 16:54; Admin Dose 1 TAB; Start 11/22/18 at 20:30 Morphine Sulfate (morphine) 2 mg Q4H PRN IV .PAIN 7-10 Last administered on 11/23/18 14:59; Admin Dose 2 MG; Start 11/22/18 at 20:30 Zolpidem Tartrate (Ambien) 5 mg QHS PRN PO .INSOMNIA Last administered on 11/24/18 22:13; Admin Dose 5 MG; Start 11/22/18 at 20:30 Docusate Sodium (Colace) 100 mg Q12H PRN PO .CONSTIPATION; Start 11/22/18 at 20:30 Magnesium Hydroxide (Milk Of Mag) 30 ml DAILY PRN PO .CONSTIPATION; Start 11/22/18 at 20:30 Famotidine (Pepcid) 20 mg Q24H PO Last administered on 11/24/18 20:12; Admin Dose 20 MG; Start 11/22/18 at 21:00 Multivit/Ca Carb/ B Cmplx/FA/Prenat ([place]en-Justo) 1 tab DAILY PO Last administered on 11/24/18 08:16; Admin Dose 1 TAB; Start 11/23/18 at 09:00 Isosorbide Dinitrate (Isordil) 40 mg TID PO Last administered on 11/24/18 20:12; Admin Dose 40 MG; Start 11/23/18 at 09:00 Fluticasone/ Vilanterol (Breo Ellipta 100-25 Mcg Inh) 1 inh DAILY INH Last administered on 11/25/18 09:11; Admin Dose 1 INH; Start 11/23/18 at 10:00 Nifedipine (Procardia Xl) 60 mg BID PO Last administered on 11/24/18 20:11; Admin Dose 60 MG; Start 11/23/18 at 21:00 TRICE ZAMORA Nov 25, 2018 11:54
[2018-11-25] MEDS ORDERED: REGADENOSON 0.4 MG/5 ML SYG ONE (12:18)
--- NOTE | 2018-11-25 13:03 | CONS ---
Assessment/Plan Assessment/Plan Hospital Course (Demo Recall) IMp: 1.chest pain-neg trop x 3/NL EF by echo 07/03 2.HTN-improved on current regimen 3.renal failure 4.HYpothyroid 5. PAD Recc: -Tele -Contineu procardia/losartan/coreg/hydralazine -Continue isordil -Contineu asa/plavix -Continue lasix -Lexiscan stress test today Consultation Date/Type/Reason Admit Date/Time Nov 22, 2018 at 14:27 Initial Consult Date 11/23/18 Type of Consult Cardiology Reason for Consultation Chest pain Requesting Provider: YOSHI GARG MD Date/Time of Note DATE: 11/25/18 TIME: 13:02 Exam/Review of Systems Vital Signs Vitals Vital Signs Date Temp Pulse Resp B/P (MAP) Pulse Ox O2 O2 Flow FiO2 Time Delivery Rate 11/25/18 97.4 71 20 118/74 99 11:00 (89) 11/25/18 Nasal 07:18 Cannula 11/23/18 2.0 08:00 Intake and Output 11/24/18 11/24/18 11/25/18 1515:00 23:00 07:00 IntakeIntake Total 720 ml 800 ml BalanceBalance 720 ml 800 ml Exam Exam Review of Systems: CONSTITUTIONAL: No fevers, chills. PULMONARY: No sob CARDIOVASCULAR: No chest pain/palpitations GASTROINTESTINAL: No nausea/vomiting. GENITOURINARY: No hematuria/dysuria. MUSCULOSKELETAL: No myagias/arthalgias. PSYCHIATRIC: The patient denies depression. NEUROLOGIC: No weakness Constitutional: alert Psych: no complaints Head: normocephalic ENMT: mucosa pink and moist Neck: supple, jvd (9 cm water) Respiratory: clear to auscultation Cardiovascular: regular rate and rhythm Gastrointestinal: soft, non-tender Musculoskeletal: muscle tone (normal) Extremities: edema (none) Neurological: other (No focal deficits) Labs Result Diagram: 11/23/1825 11/23/18 05 Medications Medications Current Medications Albuterol (Ventolin Hfa) 2 puff Q4H RESP THERAPY PRN INH WHEEZING AND SOB Last administered on 11/23/18at 14:56; Admin Dose 2 PUFF; Start 11/22/18 at 18:30 Atorvastatin Calcium (Lipitor) 10 mg QHS PO Last administered on 11/24/18 20:11; Admin Dose 10 MG; Start 11/22/18 at 21:00 Carvedilol (Coreg) 6.25 mg BID PO Last administered on 11/24/18 20:11; Admin Dose 6.25 MG; Start 11/22/18 at 21:00 Clopidogrel Bisulfate (plaVIX) 75 mg DAILY PO Last administered on 11/24/18 08:17; Admin Dose 75 MG; Start 11/23/18 at 09:00 Ferrous Sulfate (Ferrous Sulfate (Ec)) 325 mg DAILY PO Last administered on 11/24/18 08:17; Admin Dose 325 MG; Start 11/23/18 at 09:00 Furosemide (Lasix) 40 mg DAILY PO Last administered on 11/24/18 08:19; Admin Dose 40 MG; Start 11/23/18 at 09:00 Hydralazine HCl (Apresoline) 100 mg BID PO Last administered on 11/24/18 20:11; Admin Dose 100 MG; Start 11/22/18 at 21:00 Levothyroxine Sodium (Synthroid) 25 mcg BEFORE BREAKFAST PO Last administered on 11/24/18 06:40; Admin Dose 25 MCG; Start 11/23/18 at 07:00 Losartan Potassium (Cozaar) 50 mg DAILY PO Last administered on 11/24/18 08:20; Admin Dose 50 MG; Start 11/23/18 at 09:00 Pantoprazole (Protonix Tab) 40 mg AC BREAKFAST PO Last administered on 11/24/18 06:40; Admin Dose 40 MG; Start 11/23/18 at 07:00 IV Flush (NS 3 ml) 3 ml PER PROTOCOL IV ; Start 11/22/18 at 20:30 Ondansetron HCl (Zofran Inj) 4 mg Q6H PRN IV NAUSEA/VOMITING; Start 11/22/18 at 20:30 Aspirin (Aspirin) 81 mg DAILY PO Last administered on 11/24/18 08:16; Admin Dose 81 MG; Start 11/23/18 at 09:00 Nitroglycerin (Nitroglycerin (Sl Tab) 0.4 Mg) 1 tab Q5M PRN SL .CHEST PAIN; Start 11/22/18 at 20:30 Acetaminophen (Tylenol Tab) 650 mg Q6H PRN PO .PAIN 1-3 OR TEMP; Start 11/22/18 at 20:30 Acetaminophen/ Hydrocodone Bitart ([place] (5/325)) 1 tab Q6H PRN PO .PAIN 4-6 Last administered on 11/23/18 16:54; Admin Dose 1 TAB; Start 11/22/18 at 20:30 Morphine Sulfate (morphine) 2 mg Q4H PRN IV .PAIN 7-10 Last administered on 11/23/18 14:59; Admin Dose 2 MG; Start 11/22/18 at 20:30 Zolpidem Tartrate (Ambien) 5 mg QHS PRN PO .INSOMNIA Last administered on 11/24/18 22:13; Admin Dose 5 MG; Start 11/22/18 at 20:30 Docusate Sodium (Colace) 100 mg Q12H PRN PO .CONSTIPATION; Start 11/22/18 at 20:30 Magnesium Hydroxide (Milk Of Mag) 30 ml DAILY PRN PO .CONSTIPATION; Start 11/22/18 at 20:30 Famotidine (Pepcid) 20 mg Q24H PO Last administered on 11/24/18 20:12; Admin Dose 20 MG; Start 11/22/18 at 21:00 Multivit/Ca Carb/ B Cmplx/FA/Prenat (Wen-Justo) 1 tab DAILY PO Last administered on 11/24/18 08:16; Admin Dose 1 TAB; Start 11/23/18 at 09:00 Isosorbide Dinitrate (Isordil) 40 mg TID PO Last administered on 11/24/18 20:12; Admin Dose 40 MG; Start 11/23/18 at 09:00 Fluticasone/ Vilanterol (Breo Ellipta 100-25 Mcg Inh) 1 inh DAILY INH Last administered on 11/25/18 09:11; Admin Dose 1 INH; Start 11/23/18 at 10:00 Nifedipine (Procardia Xl) 60 mg BID PO Last administered on 11/24/18 20:11; Admin Dose 60 MG; Start 11/23/18 at 21:00 KERMIT DONOHUE Nov 25, 2018 13:03
--- NOTE | 2018-11-25 14:19 | HKNOTE ---
DATE OF SERVICE: 11/25/2018 REASON FOR TESTING: Chest pain, assess for ischemia. BASELINE VITAL SIGNS AND ELECTROCARDIOGRAM: Pulse of 72, blood pressure 139/66. No signs of a normal axis, normal intervals, lateral T-wave inversion. PROCEDURE: The patient underwent standard Lexiscan infusion protocol for 10 seconds followed by radi otracer. The patient's test was stopped at completion of protocol. Maximal achieved blood pressure during the test 143/67. Maximum heart rate during the test 92. ECG FINDINGS: The patient did not develop any new Lexiscan-induced ST or T-wave changes from baselin e abnormalities. No documented PVCs. SYMPTOMS: The patient had no complaints of chest pain, shortness breath during stress testing. IMPRESSION: 1. No Lexiscan-induced ST or T-wave changes from baseline abnormalities diagnostic for ischemia. 2. No complaints of chest pain or shortness of breath during stress testing. 3. No documented premature ventricular contractions during stress test. 4. Report of nuclear images to follow in separate dictation. Dictated By: KERMIT COLON/SANA Conf#: [id number] DID#: [id number] CC: YOSHI GARG MD;*EndCC*
[2018-11-25] MEDS: ATORVASTATIN 10 MG TAB PO SCH (21:22)
[2018-11-25] MEDS: FAMOTIDINE 20 MG TAB PO SCH (21:23)
[2018-11-26] VITALS (12 sets, daily range): BP systolic 109–136; BP diastolic 54–65; PULSE 74–81; RESP 18–22
[2018-11-26] MEDS: ZOLPIDEM 5 MG TAB PO PRN ×2 (00:14→23:13)
--- NOTE | 2018-11-26 03:55 | PN ---
Date/Time of Note Date/Time of Note DATE: 11/26/18 TIME: 03:52 Assessment/Plan VTE Prophylaxis Risk score (from Ns)>0 risk: 5 SCD applied (from Ns): Yes SCD contraindicated: other Pharmacological prophylaxis: other Pharm contraindication: other Lines/Catheters [facility]from [facility] Saline Lock Urinary Cath still in place: No Assessment/Plan Assessment/Plan - Acute vs acute on chronic renal failure - Nephro follows -Chest pain, rule out acute coronary syndrome. cardiac enzymes negative x3. Continue aspirin, Plavix, nitroglycerin, morphine as needed for pain. Dr. Wren is following in cardiology consultation. -Hypertensive emergency. S/p nitroglycerin gtt. Continue Coreg and Procardia. 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 - nephro consult appreciated -Dyslipidemia. -Hypothyroidism, continue levothyroxine -Anemia, multifactorial, iron deficiency anemia and of chronic disease -History of total knee replacement -PVD -Obesity with BMI of 38.1. -Asthma, continue breathing treatment as needed. Further recommendations based on clinical course. Plan of care discussed with Dr. Segovia. Result Diagram: 11/23/1852411/23/18 0525 Subjective 24 Hr Interval Summary Free Text/Dictation nad; denies any chest pain BP stable Cr elevatd- D5 1/2 ns at 40 cc/hr; will get nephro consult Eyes: no complaints ENT: no complaints Respiratory: no complaints Cardiovascular: no complaints Gastrointestinal: no complaints Genitourinary: no complaints Musculoskeletal: bone/joint pain, restricted range of motion Neurologic: no complaints Endocrine: no complaints Lymphatic: no complaints Psychological: nl mood/affect Exam/Review of Systems Exam Vitals Vital Signs Date Temp Pulse Resp B/P (MAP) Pulse Ox O2 O2 Flow FiO2 Time Delivery Rate 11/26/18 98.2 81 22 117/55 96 Nasal 03:33 (75) Cannula 11/25/18 2.0 20:00 Intake and Output 11/25/18 11/25/18 11/26/18 1515:00 23:00 07:00 IntakeIntake Total 520 ml BalanceBalance 520 ml Constitutional: alert Psych: nl mood/affect Eyes: nl lids, nl sclera ENMT: nl external ears & nose Neck: non-tender Respiratory: clear to auscultation Cardiovascular: nl pulses, other (s1s2) Gastrointestinal: soft, non-tender Musculoskeletal: nl extremities to inspection Extremities: normal pulses Neurological: other (alert/responsive) Lymph: nontender Medications Medication Current Medications Albuterol (Ventolin Hfa) 2 puff Q4H RESP THERAPY PRN INH WHEEZING AND SOB Last administered on 11/23/18 14:56; Admin Dose 2 PUFF; Start 11/22/18 at 18:30 Atorvastatin Calcium (Lipitor) 10 mg QHS PO Last administered on 11/25/18 21:22; Admin Dose 10 MG; Start 11/22/18 at 21:00 Carvedilol (Coreg) 6.25 mg BID PO Last administered on 11/25/18 21:22; Admin Dose 6.25 MG; Start 11/22/18 at 21:00 Clopidogrel Bisulfate (plaVIX) 75 mg DAILY PO Last administered on 11/24/18 08:17; Admin Dose 75 MG; Start 11/23/18 at 09:00 Ferrous Sulfate (Ferrous Sulfate (Ec)) 325 mg DAILY PO Last administered on 11/24/18 08:17; Admin Dose 325 MG; Start 11/23/18 at 09:00 Furosemide (Lasix) 40 mg DAILY PO Last administered on 11/24/18 08:19; Admin Dose 40 MG; Start 11/23/18 at 09:00 Hydralazine HCl (Apresoline) 100 mg BID PO Last administered on 11/25/18 21:23; Admin Dose 100 MG; Start 11/22/18 at 21:00 Levothyroxine Sodium (Synthroid) 25 mcg BEFORE BREAKFAST PO Last administered on 11/24/18 06:40; Admin Dose 25 MCG; Start 11/23/18 at 07:00 Losartan Potassium (Cozaar) 50 mg DAILY PO Last administered on 11/24/18 08:20; Admin Dose 50 MG; Start 11/23/18 at 09:00 Pantoprazole (Protonix Tab) 40 mg AC BREAKFAST PO Last administered on 11/24/18 06:40; Admin Dose 40 MG; Start 11/23/18 at 07:00 IV Flush (NS 3 ml) 3 ml PER PROTOCOL IV ; Start 11/22/18 at 20:30 Ondansetron HCl (Zofran Inj) 4 mg Q6H PRN IV NAUSEA/VOMITING; Start 11/22/18 at 20:30 Aspirin (Aspirin) 81 mg DAILY PO Last administered on 11/24/18 08:16; Admin Dose 81 MG; Start 11/23/18 at 09:00 Nitroglycerin (Nitroglycerin (Sl Tab) 0.4 Mg) 1 tab Q5M PRN SL .CHEST PAIN; Start 11/22/18 at 20:30 Acetaminophen (Tylenol Tab) 650 mg Q6H PRN PO .PAIN 1-3 OR TEMP; Start 11/22/18 at 20:30 Acetaminophen/ Hydrocodone Bitart ([place] (5/325)) 1 tab Q6H PRN PO .PAIN 4-6 Last administered on 11/23/18 16:54; Admin Dose 1 TAB; Start 11/22/18 at 20:30 Morphine Sulfate (morphine) 2 mg Q4H PRN IV .PAIN 7-10 Last administered on 11/23/18 14:59; Admin Dose 2 MG; Start 11/22/18 at 20:30 Zolpidem Tartrate (Ambien) 5 mg QHS PRN PO .INSOMNIA Last administered on 11/26/18 00:14; Admin Dose 5 MG; Start 11/22/18 at 20:30 Docusate Sodium (Colace) 100 mg Q12H PRN PO .CONSTIPATION; Start 11/22/18 at 20:30 Magnesium Hydroxide (Milk Of Mag) 30 ml DAILY PRN PO .CONSTIPATION; Start 11/22/18 at 20:30 Famotidine (Pepcid) 20 mg Q24H PO Last administered on 11/25/18 21:23; Admin Dose 20 MG; Start 11/22/18 at 21:00 Multivit/Ca Carb/ B Cmplx/FA/Prenat (Wen-Justo) 1 tab DAILY PO Last admi nistered on 11/24/18 08:16; Admin Dose 1 TAB; Start 11/23/18 at 09:00 Isosorbide Dinitrate (Isordil) 40 mg TID PO Last administered on 11/25/18 21:22; Admin Dose 40 MG; Start 11/23/18 at 09:00 Fluticasone/ Vilanterol (Breo Ellipta 100-25 Mcg Inh) 1 inh DAILY INH Last administered on 6/13/19at 09:11; Admin Dose 1 INH; Start 11/23/18 at 10:00 Nifedipine (Procardia Xl) 60 mg BID PO Last administered on 11/25/18at 21:23; Admin Dose 60 MG; Start 11/23/18 at 21:00 AMANDA DORSEY Nov 26, 2018 03:55
[2018-11-26] MEDS: DEXTROSE 5%-0.45% NACL 1,000 ML IV SCH (04:26)
[2018-11-26] MEDS: LEVOTHYROXINE 25 MCG TAB PO SCH (06:15)
[2018-11-26] MEDS: PANTOPRAZOLE (EC) 40 MG TAB PO SCH (06:15)
[2018-11-26] MEDS: FERROUS SULFATE (EC) 325 MG TAB PO SCH (08:19)
[2018-11-26] MEDS: ASPIRIN 81 MG TAB PO SCH (08:19)
[2018-11-26] MEDS: MULTIVIT/CA CARB/B CMPLX/FA TAB PO SCH (08:19)
[2018-11-26] MEDS: CLOPIDOGREL 75 MG TAB PO SCH (08:19)
[2018-11-26] MEDS: ISOSORBIDE DINITRATE 20 MG TAB PO SCH ×3 (08:20→20:08)
[2018-11-26] MEDS: FUROSEMIDE 40 MG TAB PO SCH (08:20)
[2018-11-26] MEDS: LOSARTAN 50 MG TAB PO SCH (08:20)
[2018-11-26] MEDS: NIFEdipine (XL) 60 MG TAB PO SCH ×2 (08:20→20:09)
[2018-11-26] MEDS: FLUTICASONE/VILANTEROL 100-25 INH SCH (08:21)
--- NOTE | 2018-11-26 11:07 | CONS ---
Assessment/Plan Assessment/Plan Assessment/Plan (Daily) 1. acute Kidney injury on CKD III due to hemodynamics and prerenal azotemia 2. 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 H/o HL 6. H/o Hypothyroidism 7. H/o PAD Plan: admission to Tele pt is on lasix 40mg PO daily, if creatinine continues to rise then stop it IVF D51/2 NS at 50 cc/hr Procardia Xl for HTN control pt previously had a full CKD work up - no need ot repeat it THanks for dane , I will continue to follow up Consultation Date/Type/Reason Admit Date/Time Nov 22, 2018 at 14:27 Date of Consultation: Nov 26, 2018 Type of Consult NEPHROLOGY Reason for Consultation Acute vs acute on chronic renal failure Requesting Provider: YOSHI GARG MD Date/Time of Note DATE: 11/26/18 TIME: 11:07 Hx of Present Illness 73-year-old female with history of hypertension, hyperlipidemia, congestive heart failure, chronic kidney disease, asthma, hypothyroidism, peripheral vascular disease and obesity. Patient developed substernal chest pain with acute dyspnea for the last couple of days and was seen in PMD office from which patient was sent for evaluation in the emergency room. Pain is substernal, currently constant, 7 out of 10 with no radiation. BUN/Cr 40/1.95 on admisison, treaed with NTG drip for hypertensive emergency. Renal has been consulted for acute vs acute on chronic renal failure Constitutional: poor po Eyes: no complaints ENT: no complaints, pain Respiratory: no complaints Cardiovascular: chest pain Gastrointestinal: no complaints Genitourinary: no complaints Musculoskeletal: no complaints Skin: no complaints Neurologic: no complaints Endocrine: no complaints Lymphatic: no complaints Psychological: no complaints Immunologic: no complaints Past Medical History Home Meds Reported Medications Brinzolamide-Brimonidine (Simbrinza 1%-0.2% Oph) 1%-0.2% - 8 Ml Drops.susp, 1 DROP BOTH EYES TID, EA 11/22/18 Albuterol Sulfate* (Proair HFA*) 8.5 Gm Hfa.aer.ad, 2 PUFF INH Q4H PRN for WHEEZING AND SOB, #1 INHALER 11/22/18 Pantoprazole* (Pantoprazole*) 40 Mg Tablet.dr, 40 MG PO AC BREAKFAST, TAB 11/22/18 Nifedipine* (Nifedipine ER*) 30 Mg Tablet.sa, 30 MG PO DAILY, TAB.SA 11/22/18 [Nephro-Justo] No Conflict Check, 1 TAB PO DAILY PRN for DIRECTED 11/22/18 Losartan Potassium* (Losartan Potassium*) 50 Mg Tablet, 50 MG PO DAILY, TAB 11/22/18 Levothyroxine Sodium* (Levothyroxine Sodium*) 25 Mcg Tablet, 25 MCG PO BEFORE BREAKFAST, #30 TAB 11/22/18 Isosorbide Dinitrate* (Isordil*) 40 Mg Tablet, 40 MG PO TID, TAB 11/22/18 Hydralazine Hcl* (Hydralazine Hcl*) 100 Mg Tablet, 100 MG PO BID, #90 TAB 11/22/18 Furosemide* (Furosemide*) 40 Mg Tablet, 40 MG PO DAILY, TAB 11/22/18 Ferrous Sulfate* (Ferrous Sulfate*) 325 Mg Tabec, 325 MG PO DAILY, TAB 11/22/18 Clopidogrel Bisulfate* (Clopidogrel Bisulfate*) 75 Mg Tablet, 75 MG PO DAILY, #30 TAB 11/22/18 Carvedilol* (Carvedilol*) 6.25 Mg Tablet, 6.25 MG PO BID, #60 TAB 11/22/18 Capsaicin (Capsaicin) 42.5 Gm Cream.gm., 1 APPLIC TOP QID, #1 TUB 11/22/18 Atorvastatin Calcium (Atorvastatin Calcium) 10 Mg Tablet, 10 MG PO QHS, #30 TAB 11/22/18 Salmeterol Xinaf-Fluticasone* (Advair*) 100/50 Diskus Inhaler, 1 INH INHALATION BID, #1 INHALER 11/22/18 Discontinued Reported Medications Folic Acid/Vitamin B Comp W-C (Nephrocaps Capsule) 1 Mg Capsule, 1 MG PO DAILY, CAP 05/12/18 Hydrochlorothiazide* (Hydrochlorothiazide*) 25 Mg Tab, 25 MG PO DAILY, #30 TAB 05/12/18 Atorvastatin Calcium (Atorvastatin Calcium) 10 Mg Tablet, 10 MG PO QHS, #30 TAB 05/12/18 Albuterol Sulfate* (Ventolin HFA*) 18 Gm Hfa.aer.ad, 2 PUFF INHALATION Q4H, #1 INHALER 05/12/18 Losartan Potassium* (Losartan Potassium*) 100 Mg Tablet, 100 MG PO DAILY, TAB 05/12/18 Medications Current Medications Albuterol (Ventolin Hfa) 2 puff Q4H RESP THERAPY PRN INH WHEEZING AND SOB Last administered on 11/23/18 14:56; Admin Dose 2 PUFF; Start 11/22/18 at 18:30 Atorvastatin Calcium (Lipitor) 10 mg QHS PO Last administered on 11/25/18 21:22; Admin Dose 10 MG; Start 11/22/18 at 21:00 Carvedilol (Coreg) 6.25 mg BID PO Last administered on 11/26/18 08:20; Admin Dose 6.25 MG; Start 11/22/18 at 21:00 Clopidogrel Bisulfate (plaVIX) 75 mg DAILY PO Last administered on 11/26/18 08:19; Admin Dose 75 MG; Start 11/23/18 at 09:00 Ferrous Sulfate (Ferrous Sulfate (Ec)) 325 mg DAILY PO Last administered on 11/26/18 08:19; Admin Dose 325 MG; Start 11/23/18 at 09:00 Furosemide (Lasix) 40 mg DAILY PO Last administered on 11/26/18 08:20; Admin Dose 40 MG; Start 11/23/18 at 09:00 Hydralazine HCl (Apresoline) 100 mg BID PO Last administered on 11/26/18 08:21; Admin Dose 100 MG; Start 11/22/18 at 21:00 Levothyroxine Sodium (Synthroid) 25 mcg BEFORE BREAKFAST PO Last administered on 11/26/18 06:15; Admin Dose 25 MCG; Start 11/23/18 at 07:00 Losartan Potassium (Cozaar) 50 mg DAILY PO Last administered on 11/26/18 08:20; Admin Dose 50 MG; Start 11/23/18 at 09:00 Pantoprazole (Protonix Tab) 40 mg AC BREAKFAST PO Last administered on 11/26/18 06:15; Admin Dose 40 MG; Start 11/23/18 at 07:00 IV Flush (NS 3 ml) 3 ml PER PROTOCOL IV ; Start 11/22/18 at 20:30 Ondansetron HCl (Zofran Inj) 4 mg Q6H PRN IV NAUSEA/VOMITING; Start 11/22/18 at 20:30 Aspirin (Aspirin) 81 mg DAILY PO Last administered on 11/26/18 08:19; Admin Dose 81 MG; Start 11/23/18 at 09:00 Nitroglycerin (Nitroglycerin (Sl Tab) 0.4 Mg) 1 tab Q5M PRN SL .CHEST PAIN; Start 11/22/18 at 20:30 Acetaminophen (Tylenol Tab) 650 mg Q6H PRN PO .PAIN 1-3 OR TEMP; Start 11/22/18 at 20:30 Acetaminophen/ Hydrocodone Bitart ([place] (5/325)) 1 tab Q6H PRN PO .PAIN 4-6 Last administered on 11/23/18 16:54; Admin Dose 1 TAB; Start 11/22/18 at 20:30 Morphine Sulfate (morphine) 2 mg Q4H PRN IV .PAIN 7-10 Last administered on 11/23/18at 14:59; Admin Dose 2 MG; Start 11/22/18 at 20:30 Zolpidem Tartrate (Ambien) 5 mg QHS PRN PO .INSOMNIA Last administered on 11/26/18at 00:14; Admin Dose 5 MG; Start 11/22/18 at 20:30 Docusate Sodium (Colace) 100 mg Q12H PRN PO .CONSTIPATION; Start 11/22/18 at 20:30 Magnesium Hydroxide (Milk Of Mag) 30 ml DAILY PRN PO .CONSTIPATION; Start 11/22/18 at 20:30 Famotidine (Pepcid) 20 mg Q24H PO Last administered on 11/25/18at 21:23; Admin Dose 20 MG; Start 11/22/18 at 21:00 Multivit/Ca Carb/ B Cmplx/FA/Prenat (Wen-Justo) 1 tab DAILY PO Last administered on 11/26/18 08:19; Admin Dose 1 TAB; Start 11/23/18 at 09:00 Isosorbide Dinitrate (Isordil) 40 mg TID PO Last administered on 11/26/18 08:20; Admin Dose 40 MG; Start 11/23/18 at 09:00 Fluticasone/ Vilanterol (Breo Ellipta 100-25 Mcg Inh) 1 inh DAILY INH Last administered on 11/26/18 08:21; Admin Dose 1 INH; Start 11/23/18 at 10:00 Nifedipine (Procardia Xl) 60 mg BID PO Last administered on 11/26/18at 08:20; Admin Dose 60 MG; Start 11/23/18 at 21:00 Dextrose/Sodium Chloride 1,000 ml @ 40 mls/hr Q24H IV Last administered on 11/26/18at 04:26; Admin Dose 40 MLS/HR; Start 11/26/18 at 04:00 Allergies: Coded Allergies: No Known Allergy (Unverified , 11/22/18) Past Surgical History Past Surgical Hx: other (Left knee arthroplasty in April 2018) Social History Alcohol Use: none Smoking Status: Never smoker Drug Use: none Exam/Review of Systems Exam Vitals Vital Signs Date Temp Pulse Resp B/P (MAP) Pulse Ox O2 O2 Flow FiO2 Time Delivery Rate 11/26/18 98.1 76 20 130/60 97 Nasal 10:59 (83) Cannula 11/26/18 2.0 08:00 Intake and Output 11/25/18 11/25/18 11/26/18 1515:00 23:00 07:00 IntakeIntake Total 520 ml 560 ml BalanceBalance 520 ml 560 ml Constitutional: alert Psych: no complaints Head: normocephalic Eyes: nl conjunctiva ENMT: nl external ears & nose Neck: supple, non-tender Respiratory: clear to auscultation, normal air movement, diminished breath sounds Cardiovascular: regular rate and rhythm, nl pulses Gastrointestinal: soft, non-tender Musculoskeletal: nl extremities to inspection Extremities: normal pulses Neurological: RN [facility] II-XII intact, nl mental status, nl speech, nl strength Results Result Diagram: 11/26/1815 11/26/18 0515 Results 24hrs Laboratory Tests Test 11/26/18 05:15 White Blood Count 6.1 Red Blood Count 2.76 L Hemoglobin 8.1 L Hematocrit 26.3 L Mean Corpuscular Volume 95.3 Mean Corpuscular Hemoglobin 29.3 Mean Corpuscular Hemoglobin Concent 30.8 L Red Cell Distribution Width 13.9 Platelet Count 236 Mean Platelet Volume 10.8 H Immature Granulocytes % 0.300 Neutrophils % 61.4 Lymphocytes % 22.8 Monocytes % 12.7 H Eosinophils % 2.0 Basophils % 0.8 Nucleated Red Blood Cells % 0.0 Immature Granulocytes # 0.020 Neutrophils # 3.7 Lymphocytes # 1.4 Monocytes # 0.8 Eosinophils # 0.1 Basophils # 0.1 Nucleated Red Blood Cells # 0.0 Sodium Level 141 Potassium Level 4.5 Chloride Level 110 Carbon Dioxide Level 24 Anion Gap 7 Blood Urea Nitrogen 60 H Creatinine 2.34 H Est Glomerular Filtrat Rate mL/min Glucose Level 105 Calcium Level 7.7 L Medications Medication Current Medications Albuterol (Ventolin Hfa) 2 puff Q4H RESP THERAPY PRN INH WHEEZING AND SOB Last administered on 11/23/18 14:56; Admin Dose 2 PUFF; Start 11/22/18 at 18:30 Atorvastatin Calcium (Lipitor) 10 mg QHS PO Last administered on 11/25/18 21: 22; Admin Dose 10 MG; Start 11/22/18 at 21:00 Carvedilol (Coreg) 6.25 mg BID PO Last administered on 11/26/18 08:20; Admin Dose 6.25 MG; Start 11/22/18 at 21:00 Clopidogrel Bisulfate (plaVIX) 75 mg DAILY PO Last administered on 11/26/18 08:19; Admin Dose 75 MG; Start 11/23/18 at 09:00 Ferrous Sulfate (Ferrous Sulfate (Ec)) 325 mg DAILY PO Last administered on 11/26/18 08:19; Admin Dose 325 MG; Start 11/23/18 at 09:00 Furosemide (Lasix) 40 mg DAILY PO Last administered on 11/26/18 08:20; Admin Dose 40 MG; Start 11/23/18 at 09:00 Hydralazine HCl (Apresoline) 100 mg BID PO Last administered on 11/26/18 08:21; Admin Dose 100 MG; Start 11/22/18 at 21:00 Levothyroxine Sodium (Synthroid) 25 mcg BEFORE BREAKFAST PO Last administered on 11/26/18 06:15; Admin Dose 25 MCG; Start 11/23/18 at 07:00 Losartan Potassium (Cozaar) 50 mg DAILY PO Last administered on 11/26/18 08:20; Admin Dose 50 MG; Start 11/23/18 at 09:00 Pantoprazole (Protonix Tab) 40 mg AC BREAKFAST PO Last administered on 11/26/18 06:15; Admin Dose 40 MG; Start 11/23/18 at 07:00 IV Flush (NS 3 ml) 3 ml PER PROTOCOL IV ; Start 11/22/18 at 20:30 Ondansetron HCl (Zofran Inj) 4 mg Q6H PRN IV NAUSEA/VOMITING; Start 11/22/18 at 20:30 Aspirin (Aspirin) 81 mg DAILY PO Last administered on 11/26/18 08:19; Admin Dose 81 MG; Start 11/23/18 at 09:00 Nitroglycerin (Nitroglycerin (Sl Tab) 0.4 Mg) 1 tab Q5M PRN SL .CHEST PAIN; Start 11/22/18 at 20:30 Acetaminophen (Tylenol Tab) 650 mg Q6H PRN PO .PAIN 1-3 OR TEMP; Start 11/22/18 at 20:30 Acetaminophen/ Hydrocodone Bitart ([place] (5/325)) 1 tab Q6H PRN PO .PAIN 4-6 Last administered on 11/23/18at 16:54; Admin Dose 1 TAB; Start 11/22/18 at 20:30 Morphine Sulfate (morphine) 2 mg Q4H PRN IV .PAIN 7-10 Last administered on 11/23/18at 14:59; Admin Dose 2 MG; Start 11/22/18 at 20:30 Zolpidem Tartrate (Ambien) 5 mg QHS PRN PO .INSOMNIA Last administered on 11/26/18at 00:14; Admin Dose 5 MG; Start 11/22/18 at 20:30 Docusate Sodium (Colace) 100 mg Q12H PRN PO .CONSTIPATION; Start 11/22/18 at 20:30 Magnesium Hydroxide (Milk Of Mag) 30 ml DAILY PRN PO .CONSTIPATION; Start 11/22/18 at 20:30 Famotidine (Pepcid) 20 mg Q24H PO Last administered on 11/25/18at 21:23; Admin Dose 20 MG; Start 11/22/18 at 21:00 Multivit/Ca Carb/ B Cmplx/FA/Prenat (Wen-Justo) 1 tab DAILY PO Last administered on 11/26/18 08:19; Admin Dose 1 TAB; Start 11/23/18 at 09:00 Isosorbide Dinitrate (Isordil) 40 mg TID PO Last administered on 11/26/18 08:20; Admin Dose 40 MG; Start 11/23/18 at 09:00 Fluticasone/ Vilanterol (Breo Ellipta 100-25 Mcg Inh) 1 inh DAILY INH Last administered on 11/26/18at 08:21; Admin Dose 1 INH; Start 11/23/18 at 10:00 Nifedipine (Procardia Xl) 60 mg BID PO Last administered on 11/26/18 08:20; Admin Dose 60 MG; Start 11/23/18 at 21:00 Dextrose/Sodium Chloride 1,000 ml @ 40 mls/hr Q24H IV Last administered on 11/26/18at 04:26; Admin Dose 40 MLS/HR; Start 11/26/18 at 04:00 SAMANTHA AMES MD Nov 26, 2018 11:07
--- NOTE | 2018-11-26 14:07 | CONS ---
Assessment/Plan Assessment/Plan Hospital Course (Demo Recall) IMp: 1.chest pain-neg trop x 3/NL EF by echo 07/03. NO ischemia by stress and normal EF 2.HTN-improved on current regimen 3.renal failure 4.HYpothyroid 5. PAD Recc: -Tele -Contineu procardia/losartan/coreg/hydralazine -Continue isordil -Contineu asa/plavix -Continue lasix Consultation Date/Type/Reason Admit Date/Time Nov 22, 2018 at 14:27 Initial Consult Date 11/23/18 Type of Consult Cardiology Reason for Consultation HTN Requesting Provider: YOSHI GARG MD Date/Time of Note DATE: 11/26/18 TIME: 14:03 Exam/Review of Systems Vital Signs Vitals Vital Signs Date Temp Pulse Resp B/P (MAP) Pulse Ox O2 O2 Flow FiO2 Time Delivery Rate 11/26/18 74 12:12 11/26/18 98.1 20 130/60 97 Nasal 10:59 (83) Cannula 11/26/18 2.0 08:00 Intake and Output 11/25/18 11/25/18 11/26/18 1515:00 23:00 07:00 IntakeIntake Total 520 ml 560 ml BalanceBalance 520 ml 560 ml Exam Exam Review of Systems: CONSTITUTIONAL: No fevers, chills. PULMONARY: No sob CARDIOVASCULAR: No chest pain/palpitations GASTROINTESTINAL: No nausea/vomiting. GENITOURINARY: No hematuria/dysuria. MUSCULOSKELETAL: No myagias/arthalgias. PSYCHIATRIC: The patient denies depression. NEUROLOGIC: No weakness Constitutional: alert Psych: no complaints Head: normocephalic ENMT: mucosa pink and moist Neck: supple, jvd (no focal deficits) Respiratory: diminished breath sounds Cardiovascular: regular rate and rhythm Gastrointestinal: soft, non-tender Musculoskeletal: muscle tone (normal) Extremities: edema (none) Neurological: other (No focal deficits) Labs Result Diagram: 11/26/18 0515 11/26/18 0515 Results 24hrs Laboratory Tests Test 11/26/18 05:15 White Blood Count 6.1 Red Blood Count 2.76 L Hemoglobin 8.1 L Hematocrit 26.3 L Mean Corpuscular Volume 95.3 Mean Corpuscular Hemoglobin 29.3 Mean Corpuscular Hemoglobin Concent 30.8 L Red Cell Distribution Width 13.9 Platelet Count 236 Mean Platelet Volume 10.8 H Immature Granulocytes % 0.300 Neutrophils % 61.4 Lymphocytes % 22.8 Monocytes % 12.7 H Eosinophils % 2.0 Basophils % 0.8 Nucleated Red Blood Cells % 0.0 Immature Granulocytes # 0.020 Neutrophils # 3.7 Lymphocytes # 1.4 Monocytes # 0.8 Eosinophils # 0.1 Basophils # 0.1 Nucleated Red Blood Cells # 0.0 Sodium Level 141 Potassium Level 4.5 Chloride Level 110 Carbon Dioxide Level 24 Anion Gap 7 Blood Urea Nitrogen 60 H Creatinine 2.34 H Est Glomerular Filtrat Rate mL/min Glucose Level 105 Calcium Level 7.7 L Medications Medications Current Medications Albuterol (Ventolin Hfa) 2 puff Q4H RESP THERAPY PRN INH WHEEZING AND SOB Last administered on 11/23/18 14:56; Admin Dose 2 PUFF; Start 11/22/18 at 18:30 Atorvastatin Calcium (Lipitor) 10 mg QHS PO Last administered on 11/25/18 21:22; Admin Dose 10 MG; Start 11/22/18 at 21:00 Carvedilol (Coreg) 6.25 mg BID PO Last administered on 11/26/18 08:20; Admin Dose 6.25 MG; Start 11/22/18 at 21:00 Clopidogrel Bisulfate (plaVIX) 75 mg DAILY PO Last administered on 11/26/18 08:19; Admin Dose 75 MG; Start 11/23/18 at 09:00 Ferrous Sulfate (Ferrous Sulfate (Ec)) 325 mg DAILY PO Last administered on 11/26/18 08:19; Admin Dose 325 MG; Start 11/23/18 at 09:00 Furosemide (Lasix) 40 mg DAILY PO Last administered on 11/26/18 08:20; Admin Dose 40 MG; Start 11/23/18 at 09:00 Hydralazine HCl (Apresoline) 100 mg BID PO Last administered on 11/26/18 08:21; Admin Dose 100 MG; Start 11/22/18 at 21:00 Levothyroxine Sodium (Synthroid) 25 mcg BEFORE BREAKFAST PO Last administered on 11/26/18 06:15; Admin Dose 25 MCG; Start 11/23/18 at 07:00 Losartan Potassium (Cozaar) 50 mg DAILY PO Last administered on 11/26/18 08:20; Admin Dose 50 MG; Start 11/23/18 at 09:00 Pantoprazole (Protonix Tab) 40 mg AC BREAKFAST PO Last administered on 11/26/18 06:15; Admin Dose 40 MG; Start 11/23/18 at 07:00 IV Flush (NS 3 ml) 3 ml PER PROTOCOL IV ; Start 11/22/18 at 20:30 Ondansetron HCl (Zofran Inj) 4 mg Q6H PRN IV NAUSEA/VOMITING; Start 11/22/18 at 20:30 Aspirin (Aspirin) 81 mg DAILY PO Last administered on 11/26/18 08:19; Admin Dose 81 MG; Start 11/23/18 at 09:00 Nitroglycerin (Nitroglycerin (Sl Tab) 0.4 Mg) 1 tab Q5M PRN SL .CHEST PAIN; Start 11/22/18 at 20:30 Acetaminophen (Tylenol Tab) 650 mg Q6H PRN PO .PAIN 1-3 OR TEMP; Start 11/22/18 at 20:30 Acetaminophen/ Hydrocodone Bitart ([place] (5/325)) 1 tab Q6H PRN PO .PAIN 4-6 Last administered on 11/23/18at 16:54; Admin Dose 1 TAB; Start 11/22/18 at 20:30 Morphine Sulfate (morphine) 2 mg Q4H PRN IV .PAIN 7-10 Last administered on 11/23/18at 14:59; Admin Dose 2 MG; Start 11/22/18 at 20:30 Zolpidem Tartrate (Ambien) 5 mg QHS PRN PO .INSOMNIA Last administered on 11/26/18at 00:14; Admin Dose 5 MG; Start 11/22/18 at 20:30 Docusate Sodium (Colace) 100 mg Q12H PRN PO .CONSTIPATION; Start 11/22/18 at 20:30 Magnesium Hydroxide (Milk Of Mag) 30 ml DAILY PRN PO .CONSTIPATION; Start 11/22/18 at 20:30 Famotidine (Pepcid) 20 mg Q24H PO Last administered on 11/25/18at 21:23; Admin Dose 20 MG; Start 11/22/18 at 21:00 Multivit/Ca Carb/ B Cmplx/FA/Prenat (Wen-Justo) 1 tab DAILY PO Last administered on 11/26/18 08:19; Admin Dose 1 TAB; Start 11/23/18 at 09:00 Isosorbide Dinitrate (Isordil) 40 mg TID PO Last administered on 11/26/18 12:47; Admin Dose 40 MG; Start 11/23/18 at 09:00 Fluticasone/ Vilanterol (Breo Ellipta 100-25 Mcg Inh) 1 inh DAILY INH Last administered on 11/26/18 08:21; Admin Dose 1 INH; Start 11/23/18 at 10:00 Nifedipine (Procardia Xl) 60 mg BID PO Last administered on 11/26/18 08:20; Admin Dose 60 MG; Start 11/23/18 at 21:00 Dextrose/Sodium Chloride 1,000 ml @ 40 mls/hr Q24H IV Last administered on 11/26/18 04:26; Admin Dose 40 MLS/HR; Start 11/26/18 at 04:00 KERMIT DONOHUE Nov 26, 2018 14:07
[2018-11-26] MEDS: ATORVASTATIN 10 MG TAB PO SCH (20:08)
[2018-11-26] MEDS: FAMOTIDINE 20 MG TAB PO SCH (20:09)
[2018-11-27] VITALS (11 sets, daily range): BP systolic 98–152; BP diastolic 50–71; PULSE 66–78; RESP 18–20
[2018-11-27] MEDS: DEXTROSE 5%-0.45% NACL 1,000 ML IV SCH (04:08)
[2018-11-27] MEDS: PANTOPRAZOLE (EC) 40 MG TAB PO SCH (06:24)
[2018-11-27] MEDS: LEVOTHYROXINE 25 MCG TAB PO SCH (06:24)
--- NOTE | 2018-11-27 08:56 | CONS ---
Assessment/Plan Assessment/Plan Assessment/Plan (Daily) 1. acute Kidney injury on CKD III due to hemodynamics and prerenal azotemia 2. 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 H/o HL 6. H/o Hypothyroidism 7. H/o PAD Plan: pt is on lasix 40mg PO daily, creatinine continues to rise - Lasic dcd IVF D51/2 NS at 50 cc/hr Procardia Xl for HTN control pt previously had a full CKD work up - no need ot repeat it will continue to follow up Patient seen in collaboration with dr Enedelia Rivera acute vs acute on chronic renal failure Consultation Date/Type/Reason Admit Date/Time Nov 22, 2018 at 14:27 Initial Consult Date 11/26/18 Type of Consult Nephrology Reason for Consultation acute vs acute on chronic renal failure Requesting Provider: YOSHI GARG MD Date/Time of Note DATE: 11/27/18 TIME: 08:56 24 HR Interval Summary Free Text/Dictation no events reported last night dw staff Detailed Summary Eyes: no complaints ENT: no complaints Respiratory: no complaints Cardiovascular: no complaints Gastrointestinal: no complaints Genitourinary: no complaints Musculoskeletal: no complaints Skin: no complaints Neurologic: no complaints Endocrine: no complaints Lymphatic: no complaints Exam/Review of Systems Exam Vitals Vital Signs Date Temp Pulse Resp B/P (MAP) Pulse Ox O2 O2 Flow FiO2 Time Delivery Rate 11/27/18 71 08:01 11/27/18 97.9 20 128/60 97 Nasal 07:04 (82) Cannula 11/27/18 2.0 04:30 Intake and Output 11/26/18 11/26/18 11/27/18 1515:00 23:00 07:00 IntakeIntake Total 720 ml 1160 ml BalanceBalance 720 ml 1160 ml Constitutional: alert, well developed Psych: nl mood/affect Head: normocephalic Eyes: nl sclera ENMT: nl external ears & nose Neck: non-tender Respiratory: clear to auscultation Cardiovascular: nl pulses, other (s1s2) Gastrointestinal: soft Musculoskeletal: nl extremities to inspection Extremities: normal pulses Neurological: nl mental status, nl speech Skin: nl turgor Lymph: nontender Results Result Diagram: 6/15/19 0528 6/15/19 0528 Results 24hrs Laboratory Tests Test 11/27/18 05:28 White Blood Count 5.4 Red Blood Count 2.84 L Hemoglobin 8.3 L Hematocrit 27.1 L Mean Corpuscular Volume 95.4 Mean Corpuscular Hemoglobin 29.2 Mean Corpuscular Hemoglobin Concent 30.6 L Red Cell Distribution Width 13.9 Platelet Count 254 Mean Platelet Volume 10.4 Immature Granulocytes % 0.200 Neutrophils % 54.7 Lymphocytes % 28.6 Monocytes % 13.5 H Eosinophils % 2.4 Basophils % 0.6 Nucleated Red Blood Cells % 0.0 Immature Granulocytes # 0.010 Neutrophils # 2.9 Lymphocytes # 1.5 Monocytes # 0.7 Eosinophils # 0.1 Basophils # 0.0 Nucleated Red Blood Cells # 0.0 Sodium Level 140 Potassium Level 4.7 Chloride Level 110 Carbon Dioxide Level 24 Anion Gap 6 Blood Urea Nitrogen 58 H Creatinine 2.23 H Est Glomerular Filtrat Rate mL/min Glucose Level 104 Calcium Level 8.0 L Medications Medication Current Medications Albuterol (Ventolin Hfa) 2 puff Q4H RESP THERAPY PRN INH WHEEZING AND SOB Last administered on 11/23/18at 14:56; Admin Dose 2 PUFF; Start 11/22/18 at 18:30 Atorvastatin Calcium (Lipitor) 10 mg QHS PO Last administered on 11/26/18at 2 0:08; Admin Dose 10 MG; Start 11/22/18 at 21:00 Carvedilol (Coreg) 6.25 mg BID PO Last administered on 11/26/18at 20:09; Admin Dose 6.25 MG; Start 11/22/18 at 21:00 Clopidogrel Bisulfate (plaVIX) 75 mg DAILY PO Last administered on 11/26/18at 08:19; Admin Dose 75 MG; Start 11/23/18 at 09:00 Ferrous Sulfate (Ferrous Sulfate (Ec)) 325 mg DAILY PO Last administered on 11/26/18 08:19; Admin Dose 325 MG; Start 11/23/18 at 09:00 Furosemide (Lasix) 40 mg DAILY PO Last administered on 11/26/18 08:20; Admin Dose 40 MG; Start 11/23/18 at 09:00 Hydralazine HCl (Apresoline) 100 mg BID PO Last administered on 11/26/18at 20:08; Admin Dose 100 MG; Start 11/22/18 at 21:00 Levothyroxine Sodium (Synthroid) 25 mcg BEFORE BREAKFAST PO Last administered on 11/27/18 06:24; Admin Dose 25 MCG; Start 11/23/18 at 07:00 Losartan Potassium (Cozaar) 50 mg DAILY PO Last administered on 11/26/18 08:20; Admin Dose 50 MG; Start 11/23/18 at 09:00 Pantoprazole (Protonix Tab) 40 mg AC BREAKFAST PO Last administered on 11/27/18 06:24; Admin Dose 40 MG; Start 11/23/18 at 07:00 IV Flush (NS 3 ml) 3 ml PER PROTOCOL IV ; Start 11/22/18 at 20:30 Ondansetron HCl (Zofran Inj) 4 mg Q6H PRN IV NAUSEA/VOMITING; Start 11/22/18 at 20:30 Aspirin (Aspirin) 81 mg DAILY PO Last administered on 11/26/18 08:19; Admin D ose 81 MG; Start 11/23/18 at 09:00 Nitroglycerin (Nitroglycerin (Sl Tab) 0.4 Mg) 1 tab Q5M PRN SL .CHEST PAIN; Start 11/22/18 at 20:30 Acetaminophen (Tylenol Tab) 650 mg Q6H PRN PO .PAIN 1-3 OR TEMP; Start 11/22/18 at 20:30 Acetaminophen/ Hydrocodone Bitart ([place] (5/325)) 1 tab Q6H PRN PO .PAIN 4-6 Last administered on 11/23/18 16:54; Admin Dose 1 TAB; Start 11/22/18 at 20:30 Morphine Sulfate (morphine) 2 mg Q4H PRN IV .PAIN 7-10 Last administered on 11/23/18 14:59; Admin Dose 2 MG; Start 11/22/18 at 20:30 Zolpidem Tartrate (Ambien) 5 mg QHS PRN PO .INSOMNIA Last administered on 11/26/18 23:13; Admin Dose 5 MG; Start 11/22/18 at 20:30 Docusate Sodium (Colace) 100 mg Q12H PRN PO .CONSTIPATION; Start 11/22/18 at 20:30 Magnesium Hydroxide (Milk Of Mag) 30 ml DAILY PRN PO .CONSTIPATION; Start 11/22/18 at 20:30 Famotidine (Pepcid) 20 mg Q24H PO Last administered on 11/26/18 20:09; Admin Dose 20 MG; Start 11/22/18 at 21:00 Multivit/Ca Carb/ B Cmplx/FA/Prenat (Wen-Justo) 1 tab DAILY PO Last administered on 11/26/18 08:19; Admin Dose 1 TAB; Start 11/23/18 at 09:00 Isosorbide Dinitrate (Isordil) 40 mg TID PO Last administered on 11/26/18 20:08; Admin Dose 40 MG; Start 11/23/18 at 09:00 Fluticasone/ Vilanterol (Breo Ellipta 100-25 Mcg Inh) 1 inh DAILY INH Last administered on 11/26/18 08:21; Admin Dose 1 INH; Start 11/23/18 at 10:00 Nifedipine (Procardia Xl) 60 mg BID PO Last administered on 11/26/18 20:09; Admin Dose 60 MG; Start 11/23/18 at 21:00 Dextrose/Sodium Chloride 1,000 ml @ 40 mls/hr Q24H IV Last administered on 11/27/18 04:08; Admin Dose 40 MLS/HR; Start 11/26/18 at 04:00 AMANDA DORSEY Nov 27, 2018 08:56
[2018-11-27] MEDS: FLUTICASONE/VILANTEROL 100-25 INH SCH (08:59)
[2018-11-27] MEDS: FUROSEMIDE 40 MG TAB PO SCH (09:00)
[2018-11-27] MEDS: LOSARTAN 50 MG TAB PO SCH (09:00)
[2018-11-27] MEDS: ISOSORBIDE DINITRATE 20 MG TAB PO SCH ×3 (09:00→21:27)
[2018-11-27] MEDS: ASPIRIN 81 MG TAB PO SCH (09:00)
[2018-11-27] MEDS: FERROUS SULFATE (EC) 325 MG TAB PO SCH (09:00)
[2018-11-27] MEDS: CLOPIDOGREL 75 MG TAB PO SCH (09:00)
[2018-11-27] MEDS: NIFEdipine (XL) 60 MG TAB PO SCH ×2 (09:01→21:27)
[2018-11-27] MEDS: MULTIVIT/CA CARB/B CMPLX/FA TAB PO SCH (09:01)
--- NOTE | 2018-11-27 10:14 | PN ---
Date/Time of Note Date/Time of Note DATE: 11/27/18 TIME: 10:13 Assessment/Plan VTE Prophylaxis Risk score (from Ns)>0 risk: 10 SCD applied (from Ns): Yes Pharmacological prophylaxis: LMWH Lines/Catheters IV Catheter Type (from Nrsg): Peripheral IV Urinary Cath still in place: No Assessment/Plan Hospital Course -Chest pain, rule out acute coronary syndrome. cardiac enzymes negative x3. Continue aspirin, Plavix, nitroglycerin, morphine as needed for pain. Dr. Wren is following in cardiology consultation. -Hypertensive emergency. S/p nitroglycerin gtt. Continue Coreg and Procardia. 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 - nephro consult appreciated -Dyslipidemia. -Hypothyroidism, continue levothyroxine -Anemia, multifactorial, iron deficiency anemia and of chronic disease -History of total knee replacement -PVD -Obesity with BMI of 38.1. -Asthma, continue breathing treatment as needed. Result Diagram: 11/27/1828 11/27/1828 Results 24hrs Laboratory Tests Test 11/27/18 05:28 White Blood Count 5.4 Red Blood Count 2.84 L Hemoglobin 8.3 L Hematocrit 27.1 L Mean Corpuscular Volume 95.4 Mean Corpuscular Hemoglobin 29.2 Mean Corpuscular Hemoglobin Concent 30.6 L Red Cell Distribution Width 13.9 Platelet Count 254 Mean Platelet Volume 10.4 Immature Granulocytes % 0.200 Neutrophils % 54.7 Lymphocytes % 28.6 Monocytes % 13.5 H Eosinophils % 2.4 Basophils % 0.6 Nucleated Red Blood Cells % 0.0 Immature Granulocytes # 0.010 Neutrophils # 2.9 Lymphocytes # 1.5 Monocytes # 0.7 Eosinophils # 0.1 Basophils # 0.0 Nucleated Red Blood Cells # 0.0 Sodium Level 140 Potassium Level 4.7 Chloride Level 110 Carbon Dioxide Level 24 Anion Gap 6 Blood Urea Nitrogen 58 H Creatinine 2.23 H Est Glomerular Filtrat Rate mL/min Glucose Level 104 Calcium Level 8.0 L Subjective 24 Hr Interval Summary Free Text/Dictation Patient continues to have chest pain on exertion Exam/Review of Systems Exam Vitals Vital Signs Date Temp Pulse Resp B/P (MAP) Pulse Ox O2 O2 Flow FiO2 Time Delivery Rate 11/27/18 71 08:01 11/27/18 97.9 20 128/60 97 Nasal 07:04 (82) Cannula 11/27/18 2.0 04:30 Intake and Output 11/26/18 11/26/18 11/27/18 1515:00 23:00 07:00 IntakeIntake Total 720 ml 1160 ml BalanceBalance 720 ml 1160 ml Constitutional: well developed Head: normocephalic, atraumatic Neck: supple Respiratory: clear to auscultation Cardiovascular: regular rate and rhythm Gastrointestinal: soft, non-tender Extremities: normal pulses Results Results 24hrs Laboratory Tests Test 11/27/18 05:28 White Blood Count 5.4 Red Blood Count 2.84 L Hemoglobin 8.3 L Hematocrit 27.1 L Mean Corpuscular Volume 95.4 Mean Corpuscular Hemoglobin 29.2 Mean Corpuscular Hemoglobin Concent 30.6 L Red Cell Distribution Width 13.9 Platelet Count 254 Mean Platelet Volume 10.4 Immature Granulocytes % 0.200 Neutrophils % 54.7 Lymphocytes % 28.6 Monocytes % 13.5 H Eosinophils % 2.4 Basophils % 0.6 Nucleated Red Blood Cells % 0.0 Immature Granulocytes # 0.010 Neutrophils # 2.9 Lymphocytes # 1.5 Monocytes # 0.7 Eosinophils # 0.1 Basophils # 0.0 Nucleated Red Blood Cells # 0.0 Sodium Level 140 Potassium Level 4.7 Chloride Level 110 Carbon Dioxide Level 24 Anion Gap 6 Blood Urea Nitrogen 58 H Creatinine 2.23 H Est Glomerular Filtrat Rate mL/min Glucose Level 104 Calcium Level 8.0 L Medications Medication Current Medications Albuterol (Ventolin Hfa) 2 puff Q4H RESP THERAPY PRN INH WHEEZING AND SOB Last administered on 11/23/18at 14:56; Admin Dose 2 PUFF; Start 11/22/18 at 18:30 Atorvastatin Calcium (Lipitor) 10 mg QHS PO Last administered on 11/26/18at 20:08; Admin Dose 10 MG; Start 11/22/18 at 21:00 Carvedilol (Coreg) 6.25 mg BID PO Last administered on 11/27/18at 08:59; Admin Dose 6.25 MG; Start 11/22/18 at 21:00 Clopidogrel Bisulfate (plaVIX) 75 mg DAILY PO Last administered on 11/27/18at 09:00; Admin Dose 75 MG; Start 11/23/18 at 09:00 Ferrous Sulfate (Ferrous Sulfate (Ec)) 325 mg DAILY PO Last administered on 11/27/18 09:00; Admin Dose 325 MG; Start 11/23/18 at 09:00 Furosemide (Lasix) 40 mg DAILY PO Last administered on 11/27/18 09:00; Admin Dose 40 MG; Start 11/23/18 at 09:00 Hydralazine HCl (Apresoline) 100 mg BID PO Last administered on 11/27/18 09:00; Admin Dose 100 MG; Start 11/22/18 at 21:00 Levothyroxine Sodium (Synthroid) 25 mcg BEFORE BREAKFAST PO Last administered on 11/27/18 06:24; Admin Dose 25 MCG; Start 11/23/18 at 07:00 Losartan Potassium (Cozaar) 50 mg DAILY PO Last administered on 11/27/18 09:00; Admin Dose 50 MG; Start 11/23/18 at 09:00 Pantoprazole (Protonix Tab) 40 mg AC BREAKFAST PO Last administered on 11/27/18 06:24; Admin Dose 40 MG; Start 11/23/18 at 07:00 IV Flush (NS 3 ml) 3 ml PER PROTOCOL IV ; Start 11/22/18 at 20:30 Ondansetron HCl (Zofran Inj) 4 mg Q6H PRN IV NAUSEA/VOMITING; Start 11/22/18 at 20:30 Aspirin (Aspirin) 81 mg DAILY PO Last administered on 11/27/18 09:00; Admin Dose 81 MG; Start 11/23/18 at 09:00 Nitroglycerin (Nitroglycerin (Sl Tab) 0.4 Mg) 1 tab Q5M PRN SL .CHEST PAIN; Start 11/22/18 at 20:30 Acetaminophen (Tylenol Tab) 650 mg Q6H PRN PO .PAIN 1-3 OR TEMP; Start 11/22/18 at 20:30 Acetaminophen/ Hydrocodone Bitart (Victor (5/325)) 1 tab Q6H PRN PO .PAIN 4-6 Last administered on 11/23/18 16:54; Admin Dose 1 TAB; Start 11/22/18 at 20:30 Morphine Sulfate (morphine) 2 mg Q4H PRN IV .PAIN 7-10 Last administered on 11/23/18 14:59; Admin Dose 2 MG; Start 11/22/18 at 20:30 Zolpidem Tartrate (Ambien) 5 mg QHS PRN PO .INSOMNIA Last administered on 11/26/18 23:13; Admin Dose 5 MG; Start 11/22/18 at 20:30 Docusate Sodium (Colace) 100 mg Q12H PRN PO .CONSTIPATION; Start 11/22/18 at 20:30 Magnesium Hydroxide (Milk Of Mag) 30 ml DAILY PRN PO .CONSTIPATION; Start 11/22/18 at 20:30 Famotidine (Pepcid) 20 mg Q24H PO Last administered on 11/26/18 20:09; Admin Dose 20 MG; Start 11/22/18 at 21:00 Multivit/Ca Carb/ B Cmplx/FA/Prenat (Wen-Justo) 1 tab DAILY PO Last administered on 11/27/18 09:01; Admin Dose 1 TAB; Start 11/23/18 at 09:00 Isosorbide Dinitrate (Isordil) 40 mg TID PO Last administered on 11/27/18 09:00; Admin Dose 40 MG; Start 11/23/18 at 09:00 Fluticasone/ Vilanterol (Breo Ellipta 100-25 Mcg Inh) 1 inh DAILY INH Last administered on 11/27/18 08:59; Admin Dose 1 INH; Start 11/23/18 at 10:00 Nifedipine (Procardia Xl) 60 mg BID PO Last administered on 11/27/18 09:01; Admin Dose 60 MG; Start 11/23/18 at 21:00 Dextrose/Sodium Chloride 1,000 ml @ 40 mls/hr Q24H IV Last administered on 11/27/18 04:08; Admin Dose 40 MLS/HR; Start 11/26/18 at 04:00 ABHIJEET RECINOS Nov 27, 2018 10:14
--- NOTE | 2018-11-27 16:03 | CONS ---
Assessment/Plan Assessment/Plan Assessment/Plan (Daily) Atypical chest pain Hypertension Renal failure Hypothyroid PAD Continue Procardia Continue Coreg Continue Hydralazine Continue Isordil Continue asa and Plavix Stop Lasix Stop Losartan Continue Levothyroxine Consultation Date/Type/Reason Admit Date/Time Nov 22, 2018 at 14:27 Type of Consult Cardiology Date/Time of Note DATE: 11/27/18 TIME: 15:58 Past Medical History Home Meds Reported Medications Brinzolamide-Brimonidine (Simbrinza 1%-0.2% Oph) 1%-0.2% - 8 Ml Drops.susp, 1 DROP BOTH EYES TID, EA 11/22/18 Albuterol Sulfate* (Proair HFA*) 8.5 Gm Hfa.aer.ad, 2 PUFF INH Q4H PRN for WHEEZING AND SOB, #1 INHALER 11/22/18 Pantoprazole* (Pantoprazole*) 40 Mg Tablet.dr, 40 MG PO AC BREAKFAST, TAB 11/22/18 Nifedipine* (Nifedipine ER*) 30 Mg Tablet.sa, 30 MG PO DAILY, TAB.SA 11/22/18 [Nephro-Justo] No Conflict Check, 1 TAB PO DAILY PRN for DIRECTED 11/22/18 Losartan Potassium* (Losartan Potassium*) 50 Mg Tablet, 50 MG PO DAILY, TAB 11/22/18 Levothyroxine Sodium* (Levothyroxine Sodium*) 25 Mcg Tablet, 25 MCG PO BEFORE BREAKFAST, #30 TAB 11/22/18 Isosorbide Dinitrate* (Isordil*) 40 Mg Tablet, 40 MG PO TID, TAB 11/22/18 Hydralazine Hcl* (Hydralazine Hcl*) 100 Mg Tablet, 100 MG PO BID, #90 TAB 11/22/18 Furosemide* (Furosemide*) 40 Mg Tablet, 40 MG PO DAILY, TAB 11/22/18 Ferrous Sulfate* (Ferrous Sulfate*) 325 Mg Tabec, 325 MG PO DAILY, TAB 11/22/18 Clopidogrel Bisulfate* (Clopidogrel Bisulfate*) 75 Mg Tablet, 75 MG PO DAILY, #30 TAB 11/22/18 Carvedilol* (Carvedilol*) 6.25 Mg Tablet, 6.25 MG PO BID, #60 TAB 11/22/18 Capsaicin (Capsaicin) 42.5 Gm Cream.gm., 1 APPLIC TOP QID, #1 TUB 11/22/18 Atorvastatin Calcium (Atorvastatin Calcium) 10 Mg Tablet, 10 MG PO QHS, #30 TAB 11/22/18 Salmeterol Xinaf-Fluticasone* (Advair*) 100/50 Diskus Inhaler, 1 INH INHALATION BID, #1 INHALER 11/22/18 Discontinued Reported Medications Folic Acid/Vitamin B Comp W-C (Nephrocaps Capsule) 1 Mg Capsule, 1 MG PO DAILY, CAP 05/12/18 Hydrochlorothiazide* (Hydrochlorothiazide*) 25 Mg Tab, 25 MG PO DAILY, #30 TAB 05/12/18 Atorvastatin Calcium (Atorvastatin Calcium) 10 Mg Tablet, 10 MG PO QHS, #30 TAB 05/12/18 Albuterol Sulfate* (Ventolin HFA*) 18 Gm Hfa.aer.ad, 2 PUFF INHALATION Q4H, #1 INHALER 05/12/18 Losartan Potassium* (Losartan Potassium*) 100 Mg Tablet, 100 MG PO DAILY, TAB 05/12/18 Medications Current Medications Albuterol (Ventolin Hfa) 2 puff Q4H RESP THERAPY PRN INH WHEEZING AND SOB Last administered on 11/23/18at 14:56; Admin Dose 2 PUFF; Start 11/22/18 at 18:30 Atorvastatin Calcium (Lipitor) 10 mg QHS PO Last administered on 11/26/18at 20:08; Admin Dose 10 MG; Start 11/22/18 at 21:00 Carvedilol (Coreg) 6.25 mg BID PO Last administered on 11/27/18 08:59; Admin Dose 6.25 MG; Start 11/22/18 at 21:00 Clopidogrel Bisulfate (plaVIX) 75 mg DAILY PO Last administered on 11/27/18 09:00; Admin Dose 75 MG; Start 11/23/18 at 09:00 Ferrous Sulfate (Ferrous Sulfate (Ec)) 325 mg DAILY PO Last administered on 11/27/18 09:00; Admin Dose 325 MG; Start 11/23/18 at 09:00 Furosemide (Lasix) 40 mg DAILY PO Last administered on 11/27/18 09:00; Admin Dose 40 MG; Start 11/23/18 at 09:00 Hydralazine HCl (Apresoline) 100 mg BID PO Last administered on 11/27/18 09:00; Admin Dose 100 MG; Start 11/22/18 at 21:00 Levothyroxine Sodium (Synthroid) 25 mcg BEFORE BREAKFAST PO Last administered on 11/27/18 06:24; Admin Dose 25 MCG; Start 11/23/18 at 07:00 Losartan Potassium (Cozaar) 50 mg DAILY PO Last administered on 11/27/18 09:00; Admin Dose 50 MG; Start 11/23/18 at 09:00 Pantoprazole (Protonix Tab) 40 mg AC BREAKFAST PO Last administered on 11/27/18 06:24; Admin Dose 40 MG; Start 11/23/18 at 07:00 IV Flush (NS 3 ml) 3 ml PER PROTOCOL IV ; Start 11/22/18 at 20:30 Ondansetron HCl (Zofran Inj) 4 mg Q6H PRN IV NAUSEA/VOMITING; Start 11/22/18 at 20:30 Aspirin (Aspirin) 81 mg DAILY PO Last administered on 11/27/18 09:00; Admin Dose 81 MG; Start 11/23/18 at 09:00 Nitroglycerin (Nitroglycerin (Sl Tab) 0.4 Mg) 1 tab Q5M PRN SL .CHEST PAIN; Start 11/22/18 at 20:30 Acetaminophen (Tylenol Tab) 650 mg Q6H PRN PO .PAIN 1-3 OR TEMP; Start 11/22/18 at 20:30 Acetaminophen/ Hydrocodone Bitart ([place] (5/325)) 1 tab Q6H PRN PO .PAIN 4-6 Last administered on 11/23/18 16:54; Admin Dose 1 TAB; Start 11/22/18 at 20:30 Morphine Sulfate (morphine) 2 mg Q4H PRN IV .PAIN 7-10 Last administered on 11/23/18 14:59; Admin Dose 2 MG; Start 11/22/18 at 20:30 Zolpidem Tartrate (Ambien) 5 mg QHS PRN PO .INSOMNIA Last administered on 11/26/18 23:13; Admin Dose 5 MG; Start 11/22/18 at 20:30 Docusate Sodium (Colace) 100 mg Q12H PRN PO .CONSTIPATION; Start 11/22/18 at 20:30 Magnesium Hydroxide (Milk Of Mag) 30 ml DAILY PRN PO .CONSTIPATION; Start 11/22/18 at 20:30 Famotidine (Pepcid) 20 mg Q24H PO Last administered on 11/26/18at 20:09; Admin Dose 20 MG; Start 11/22/18 at 21:00 Multivit/Ca Carb/ B Cmplx/FA/Prenat (Wen-Justo) 1 tab DAILY PO Last administered on 11/27/18at 09:01; Admin Dose 1 TAB; Start 11/23/18 at 09:00 Isosorbide Dinitrate (Isordil) 40 mg TID PO Last administered on 11/27/18 12:26; Admin Dose 40 MG; Start 11/23/18 at 09:00 Fluticasone/ Vilanterol (Breo Ellipta 100-25 Mcg Inh) 1 inh DAILY INH Last administered on 11/27/18at 08:59; Admin Dose 1 INH; Start 11/23/18 at 10:00 Nifedipine (Procardia Xl) 60 mg BID PO Last administered on 11/27/18at 09:01; Admin Dose 60 MG; Start 11/23/18 at 21:00 Dextrose/Sodium Chloride 1,000 ml @ 40 mls/hr Q24H IV Last administered on 11/27/18 04:08; Admin Dose 40 MLS/HR; Start 11/26/18 at 04:00 Allergies: Coded Allergies: No Known Allergy (Unverified , 11/22/18) Past Surgical History Past Surgical Hx: other (Left knee arthroplasty in April 2018) Social History Alcohol Use: none Smoking Status: Never smoker Drug Use: none Exam/Review of Systems Vital Signs Vitals Vital Signs Date Temp Pulse Resp B/P (MAP) Pulse Ox O2 O2 Flow FiO2 Time Delivery Rate 11/27/18 98.0 77 20 146/71 98 Nasal 15:13 (96) Cannula 11/27/18 2.0 13:07 Intake and Output 11/26/18 11/26/18 11/27/18 1515:00 23:00 07:00 IntakeIntake Total 720 ml 1160 ml BalanceBalance 720 ml 1160 ml Exam Constitutional: alert, oriented Head: normocephalic, atraumatic Neck: supple, non-tender Respiratory: clear to auscultation Cardiovascular: regular rate and rhythm (no m/r/g) Gastrointestinal: soft, non-tender Extremities: normal pulses Labs Result Diagram: 11/27/18 0528 11/27/18 0528 Results 24hrs Laboratory Tests Test 11/27/18 05:28 White Blood Count 5.4 Red Blood Count 2.84 L Hemoglobin 8.3 L Hematocrit 27.1 L Mean Corpuscular Volume 95.4 Mean Corpuscular Hemoglobin 29.2 Mean Corpuscular Hemoglobin Concent 30.6 L Red Cell Distribution Width 13.9 Platelet Count 254 Mean Platelet Volume 10.4 Immature Granulocytes % 0.200 Neutrophils % 54.7 Lymphocytes % 28.6 Monocytes % 13.5 H Eosinophils % 2.4 Basophils % 0.6 Nucleated Red Blood Cells % 0.0 Immature Granulocytes # 0.010 Neutrophils # 2.9 Lymphocytes # 1.5 Monocytes # 0.7 Eosinophils # 0.1 Basophils # 0.0 Nucleated Red Blood Cells # 0.0 Sodium Level 140 Potassium Level 4.7 Chloride Level 110 Carbon Dioxide Level 24 Anion Gap 6 Blood Urea Nitrogen 58 H Creatinine 2.23 H Est Glomerular Filtrat Rate mL/min Glucose Level 104 Calcium Level 8.0 L Medications Medications Current Medications Albuterol (Ventolin Hfa) 2 puff Q4H RESP THERAPY PRN INH WHEEZING AND SOB Last administered on 11/23/18at 14:56; Admin Dose 2 PUFF; Start 11/22/18 at 18:30 Atorvastatin Calcium (Lipitor) 10 mg QHS PO Last administered on 11/26/18at 20:08; Admin Dose 10 MG; Start 11/22/18 at 21:00 Carvedilol (Coreg) 6.25 mg BID PO Last administered on 11/27/18at 08:59; Admin Dose 6.25 MG; Start 11/22/18 at 21:00 Clopidogrel Bisulfate (plaVIX) 75 mg DAILY PO Last administered on 11/27/18at 09:00; Admin Dose 75 MG; Start 11/23/18 at 09:00 Ferrous Sulfate (Ferrous Sulfate (Ec)) 325 mg DAILY PO Last administered on 11/27/18 09:00; Admin Dose 325 MG; Start 11/23/18 at 09:00 Furosemide (Lasix) 40 mg DAILY PO Last administered on 11/27/18at 09:00; Admin Dose 40 MG; Start 11/23/18 at 09:00 Hydralazine HCl (Apresoline) 100 mg BID PO Last administered on 11/27/18 09 :00; Admin Dose 100 MG; Start 11/22/18 at 21:00 Levothyroxine Sodium (Synthroid) 25 mcg BEFORE BREAKFAST PO Last administered on 11/27/18 06:24; Admin Dose 25 MCG; Start 11/23/18 at 07:00 Losartan Potassium (Cozaar) 50 mg DAILY PO Last administered on 11/27/18 09:00; Admin Dose 50 MG; Start 11/23/18 at 09:00 Pantoprazole (Protonix Tab) 40 mg AC BREAKFAST PO Last administered on 11/27/18 06:24; Admin Dose 40 MG; Start 11/23/18 at 07:00 IV Flush (NS 3 ml) 3 ml PER PROTOCOL IV ; Start 11/22/18 at 20:30 Ondansetron HCl (Zofran Inj) 4 mg Q6H PRN IV NAUSEA/VOMITING; Start 11/22/18 at 20:30 Aspirin (Aspirin) 81 mg DAILY PO Last administered on 11/27/18 09:00; Admin Dose 81 MG; Start 11/23/18 at 09:00 Nitroglycerin (Nitroglycerin (Sl Tab) 0.4 Mg) 1 tab Q5M PRN SL .CHEST PAIN; Start 11/22/18 at 20:30 Acetaminophen (Tylenol Tab) 650 mg Q6H PRN PO .PAIN 1-3 OR TEMP; Start 11/22/18 at 20:30 Acetaminophen/ Hydrocodone Bitart ([place]ath (5/325)) 1 tab Q6H PRN PO .PAIN 4-6 Last administered on 11/23/18 16:54; Admin Dose 1 TAB; Start 11/22/18 at 20:30 Morphine Sulfate (morphine) 2 mg Q4H PRN IV .PAIN 7-10 Last administered on 11/23/18 14:59; Admin Dose 2 MG; Start 11/22/18 at 20:30 Zolpidem Tartrate (Ambien) 5 mg QHS PRN PO .INSOMNIA Last administered on 11/26/18 23:13; Admin Dose 5 MG; Start 11/22/18 at 20:30 Docusate Sodium (Colace) 100 mg Q12H PRN PO .CONSTIPATION; Start 11/22/18 at 20:30 Magnesium Hydroxide (Milk Of Mag) 30 ml DAILY PRN PO .CONSTIPATION; Start 11/22/18 at 20:30 Famotidine (Pepcid) 20 mg Q24H PO Last administered on 11/26/18 20:09; Admin Dose 20 MG; Start 11/22/18 at 21:00 Multivit/Ca Carb/ B Cmplx/FA/Prenat (Wen-Justo) 1 tab DAILY PO Last administ ered on 11/27/18 09:01; Admin Dose 1 TAB; Start 11/23/18 at 09:00 Isosorbide Dinitrate (Isordil) 40 mg TID PO Last administered on 11/27/18 12:26; Admin Dose 40 MG; Start 11/23/18 at 09:00 Fluticasone/ Vilanterol (Breo Ellipta 100-25 Mcg Inh) 1 inh DAILY INH Last administered on 11/27/18 08:59; Admin Dose 1 INH; Start 11/23/18 at 10:00 Nifedipine (Procardia Xl) 60 mg BID PO Last administered on 11/27/18 09:01; Admin Dose 60 MG; Start 11/23/18 at 21:00 Dextrose/Sodium Chloride 1,000 ml @ 40 mls/hr Q24H IV Last administered on 11/27/18 04:08; Admin Dose 40 MLS/HR; Start 11/26/18 at 04:00 NETTIE ELAINE M.D. Nov 27, 2018 16:03
[2018-11-27] MEDS: ATORVASTATIN 10 MG TAB PO SCH (21:26)
[2018-11-27] MEDS: FAMOTIDINE 20 MG TAB PO SCH (21:27)
[2018-11-27] MEDS: ZOLPIDEM 5 MG TAB PO PRN (23:35)
[2018-11-28] VITALS (10 sets, daily range): BP systolic 119–155; BP diastolic 57–65; PULSE 68–83; RESP 18–20
[2018-11-28] MEDS: DEXTROSE 5%-0.45% NACL 1,000 ML IV SCH ×2 (04:10→15:48)
[2018-11-28] MEDS: PANTOPRAZOLE (EC) 40 MG TAB PO SCH (06:23)
[2018-11-28] MEDS: LEVOTHYROXINE 25 MCG TAB PO SCH (06:23)
[2018-11-28] MEDS: FLUTICASONE/VILANTEROL 100-25 INH SCH (08:57)
[2018-11-28] MEDS: ASPIRIN 81 MG TAB PO SCH (08:57)
[2018-11-28] MEDS: FERROUS SULFATE (EC) 325 MG TAB PO SCH (08:57)
[2018-11-28] MEDS: CLOPIDOGREL 75 MG TAB PO SCH (08:58)
[2018-11-28] MEDS: MULTIVIT/CA CARB/B CMPLX/FA TAB PO SCH (08:58)
[2018-11-28] MEDS: ISOSORBIDE DINITRATE 20 MG TAB PO SCH ×3 (08:58→20:27)
[2018-11-28] MEDS: NIFEdipine (XL) 60 MG TAB PO SCH ×2 (08:58→20:27)
--- NOTE | 2018-11-28 10:42 | PN ---
Date/Time of Note Date/Time of Note DATE: 11/28/18 TIME: 10:42 Assessment/Plan VTE Prophylaxis Risk score (from Ns)>0 risk: 9 SCD applied (from Nsg): Yes Pharmacological prophylaxis: LMWH Lines/Catheters IV Catheter Type (from Nrsg): Peripheral IV Urinary Cath still in place: No Assessment/Plan Hospital Course -Chest pain, rule out acute coronary syndrome. cardiac enzymes negative x3. Continue aspirin, Plavix, nitroglycerin, morphine as needed for pain. Dr. Wren is following in cardiology consultation. -Hypertensive emergency. S/p nitroglycerin gtt. Continue Coreg and Procardia. 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 - nephro consult appreciated -Dyslipidemia. -Hypothyroidism, continue levothyroxine -Anemia, multifactorial, iron deficiency anemia and of chronic disease -History of total knee replacement -PVD -Obesity with BMI of 38.1. -Asthma, continue breathing treatment as needed. Result Diagram: 11/27/1852711/27/18527 Subjective 24 Hr Interval Summary Free Text/Dictation Patient complains of shortness of breath with exertion Exam/Review of Systems Exam Vitals Vital Signs Date Temp Pulse Resp B/P (MAP) Pulse Ox O2 O2 Flow FiO2 Time Delivery Rate 11/28/18 83 08:01 11/28/18 97.7 20 155/57 97 Nasal 07:48 (89) Cannula 11/28/18 2.0 04:14 Intake and Output 11/27/18 11/27/18 11/28/18 1515:00 23:00 07:00 IntakeIntake Total 1380 ml 1410 ml BalanceBalance 1380 ml 1410 ml Constitutional: well developed Head: normocephalic, atraumatic Neck: supple Respiratory: diminished breath sounds Cardiovascular: regular rate and rhythm Gastrointestinal: soft, non-tender Extremities: normal pulses Medications Medication Current Medications Albuterol (Ventolin Hfa) 2 puff Q4H RESP THERAPY PRN INH WHEEZING AND SOB Last administered on 11/23/18at 14:56; Admin Dose 2 PUFF; Start 11/22/18 at 18:30 Atorvastatin Calcium (Lipitor) 10 mg QHS PO Last administered on 11/27/18at 21:26; Admin Dose 10 MG; Start 11/22/18 at 21:00 Carvedilol (Coreg) 6.25 mg BID PO Last administered on 11/28/18 08:57; Admin Dose 6.25 MG; Start 11/22/18 at 21:00 Clopidogrel Bisulfate (plaVIX) 75 mg DAILY PO Last administered on 11/28/18 08:58; Admin Dose 75 MG; Start 11/23/18 at 09:00 Ferrous Sulfate (Ferrous Sulfate (Ec)) 325 mg DAILY PO Last administered on 11/28/18 08:57; Admin Dose 325 MG; Start 11/23/18 at 09:00 Hydralazine HCl (Apresoline) 100 mg BID PO Last administered on 11/28/18 08:57; Admin Dose 100 MG; Start 11/22/18 at 21:00 Levothyroxine Sodium (Synthroid) 25 mcg BEFORE BREAKFAST PO Last administered on 11/28/18 06:23; Admin Dose 25 MCG; Start 11/23/18 at 07:00 Pantoprazole (Protonix Tab) 40 mg AC BREAKFAST PO Last administered on 11/28/18 06:23; Admin Dose 40 MG; Start 11/23/18 at 07:00 IV Flush (NS 3 ml) 3 ml PER PROTOCOL IV ; Start 11/22/18 at 20:30 Ondansetron HCl (Zofran Inj) 4 mg Q6H PRN IV NAUSEA/VOMITING; Start 11/22/18 at 20:30 Aspirin (Aspirin) 81 mg DAILY PO Last administered on 11/28/18 08:57; Admin Dose 81 MG; Start 11/23/18 at 09:00 Nitroglycerin (Nitroglycerin (Sl Tab) 0.4 Mg) 1 tab Q5M PRN SL .CHEST PAIN; Start 11/22/18 at 20:30 Acetaminophen (Tylenol Tab) 650 mg Q6H PRN PO .PAIN 1-3 OR TEMP; Start 11/22/18 at 20:30 Acetaminophen/ Hydrocodone Bitart ([place] (5/325)) 1 tab Q6H PRN PO .PAIN 4-6 Last administered on 11/23/18 16:54; Admin Dose 1 TAB; Start 11/22/18 at 20:30 Morphine Sulfate (morphine) 2 mg Q4H PRN IV .PAIN 7-10 Last administered on 11/23/18 14:59; Admin Dose 2 MG; Start 11/22/18 at 20:30 Zolpidem Tartrate (Ambien) 5 mg QHS PRN PO .INSOMNIA Last administered on 11/27/18 23:35; Admin Dose 5 MG; Start 11/22/18 at 20:30 Docusate Sodium (Colace) 100 mg Q12H PRN PO .CONSTIPATION; Start 11/22/18 at 20:30 Magnesium Hydroxide (Milk Of Mag) 30 ml DAILY PRN PO .CONSTIPATION; Start 11/22/18 at 20:30 Famotidine (Pepcid) 20 mg Q24H PO Last administered on 11/27/18 21:27; Admin Dose 20 MG; Start 11/22/18 at 21:00 Multivit/Ca Carb/ B Cmplx/FA/Prenat (Wen-Justo) 1 tab DAILY PO Last administere d on 11/28/18 08:58; Admin Dose 1 TAB; Start 11/23/18 at 09:00 Isosorbide Dinitrate (Isordil) 40 mg TID PO Last administered on 11/28/18 08:58; Admin Dose 40 MG; Start 11/23/18 at 09:00 Fluticasone/ Vilanterol (Breo Ellipta 100-25 Mcg Inh) 1 inh DAILY INH Last administered on 11/28/18 08:57; Admin Dose 1 INH; Start 11/23/18 at 10:00 Nifedipine (Procardia Xl) 60 mg BID PO Last administered on 11/28/18 08:58; Admin Dose 60 MG; Start 11/23/18 at 21:00 Dextrose/Sodium Chloride 1,000 ml @ 40 mls/hr Q24H IV Last administered on 11/28/18 04:10; Admin Dose 40 MLS/HR; Start 11/26/18 at 04:00 ABHIJEET RECINOS Nov 28, 2018 10:42
--- NOTE | 2018-11-28 14:15 | CONS ---
Assessment/Plan Assessment/Plan Assessment/Plan (Daily) Atypical chest pain Hypertension Renal failure Hypothyroid PAD Hypertensive Continue Procardia Increased Coreg Increased Hydralazine Continue Isordil Continue asa and Plavix Off Lasix Off Losartan Continue Levothyroxine Consultation Date/Type/Reason Admit Date/Time Nov 22, 2018 at 14:27 Initial Consult Date 11/26/18 Type of Consult Cardiology Requesting Provider: YOSHI GARG MD Date/Time of Note DATE: 11/28/18 TIME: 14:12 Exam/Review of Systems Vital Signs Vitals Vital Signs Date Temp Pulse Resp B/P (MAP) Pulse Ox O2 O2 Flow FiO2 Time Delivery Rate 11/28/18 73 12:01 11/28/18 97.7 20 119/58 97 Nasal 11:30 (78) Cannula 11/28/18 2.0 08:30 Intake and Output 11/27/18 11/27/18 11/28/18 1515:00 23:00 07:00 IntakeIntake Total 1380 ml 1410 ml BalanceBalance 1380 ml 1410 ml Exam Exam Constitutional: alert, oriented Head: normocephalic, atraumatic Neck: supple, non-tender Respiratory: clear to auscultation Cardiovascular: regular rate and rhythm (no m/r/g) Gastrointestinal: soft, non-tender Extremities: normal pulses Labs Result Diagram: 11/27/1852711/27/18527 Medications Medications Current Medications Albuterol (Ventolin Hfa) 2 puff Q4H RESP THERAPY PRN INH WHEEZING AND SOB Last administered on 11/23/18at 14:56; Admin Dose 2 PUFF; Start 11/22/18 at 18:30 Atorvastatin Calcium (Lipitor) 10 mg QHS PO Last administered on 11/27/18at 21:26; Admin Dose 10 MG; Start 11/22/18 at 21:00 Carvedilol (Coreg) 6.25 mg BID PO Last administered on 11/28/18at 08:57; Admin Dose 6.25 MG; Start 11/22/18 at 21:00 Clopidogrel Bisulfate (plaVIX) 75 mg DAILY PO Last administered on 11/28/18at 08:58; Admin Dose 75 MG; Start 11/23/18 at 09:00 Ferrous Sulfate (Ferrous Sulfate (Ec)) 325 mg DAILY PO Last administered on 11/28/18 08:57; Admin Dose 325 MG; Start 11/23/18 at 09:00 Hydralazine HCl (Apresoline) 100 mg BID PO Last administered on 11/28/18 08:57; Admin Dose 100 MG; Start 11/22/18 at 21:00 Levothyroxine Sodium (Synthroid) 25 mcg BEFORE BREAKFAST PO Last administered on 11/28/18 06:23; Admin Dose 25 MCG; Start 11/23/18 at 07:00 Pantoprazole (Protonix Tab) 40 mg AC BREAKFAST PO Last administered on 11/28/18 06:23; Admin Dose 40 MG; Start 11/23/18 at 07:00 IV Flush (NS 3 ml) 3 ml PER PROTOCOL IV ; Start 11/22/18 at 20:30 Ondansetron HCl (Zofran Inj) 4 mg Q6H PRN IV NAUSEA/VOMITING; Start 11/22/18 at 20:30 Aspirin (Aspirin) 81 mg DAILY PO Last administered on 11/28/18 08:57; Admin Dose 81 MG; Start 11/23/18 at 09:00 Nitroglycerin (Nitroglycerin (Sl Tab) 0.4 Mg) 1 tab Q5M PRN SL .CHEST PAIN; Start 11/22/18 at 20:30 Acetaminophen (Tylenol Tab) 650 mg Q6H PRN PO .PAIN 1-3 OR TEMP; Start 11/22/18 at 20:30 Acetaminophen/ Hydrocodone Bitart ([place] (5/325)) 1 tab Q6H PRN PO .PAIN 4-6 L ast administered on 11/23/18 16:54; Admin Dose 1 TAB; Start 11/22/18 at 20:30 Morphine Sulfate (morphine) 2 mg Q4H PRN IV .PAIN 7-10 Last administered on 11/23/18 14:59; Admin Dose 2 MG; Start 11/22/18 at 20:30 Zolpidem Tartrate (Ambien) 5 mg QHS PRN PO .INSOMNIA Last administered on 11/27/18 23:35; Admin Dose 5 MG; Start 11/22/18 at 20:30 Docusate Sodium (Colace) 100 mg Q12H PRN PO .CONSTIPATION; Start 11/22/18 at 20:30 Magnesium Hydroxide (Milk Of Mag) 30 ml DAILY PRN PO .CONSTIPATION; Start 11/22/18 at 20:30 Famotidine (Pepcid) 20 mg Q24H PO Last administered on 11/27/18 21:27; Admin Dose 20 MG; Start 11/22/18 at 21:00 Multivit/Ca Carb/ B Cmplx/FA/Prenat (Wen-Justo) 1 tab DAILY PO Last administered on 11/28/18 08:58; Admin Dose 1 TAB; Start 11/23/18 at 09:00 Isosorbide Dinitrate (Isordil) 40 mg TID PO Last administered on 11/28/18 12:12; Admin Dose 40 MG; Start 11/23/18 at 09:00 Fluticasone/ Vilanterol (Breo Ellipta 100-25 Mcg Inh) 1 inh DAILY INH Last administered on 11/28/18 08:57; Admin Dose 1 INH; Start 11/23/18 at 10:00 Nifedipine (Procardia Xl) 60 mg BID PO Last administered on 11/28/18 08:58; Admin Dose 60 MG; Start 11/23/18 at 21:00 Dextrose/Sodium Chloride 1,000 ml @ 40 mls/hr Q24H IV Last administered on 11/28/18 04:10; Admin Dose 40 MLS/HR; Start 11/26/18 at 04:00 NETTIE ELAINE M.D. Nov 28, 2018 14:15
--- NOTE | 2018-11-28 14:20 | CONS ---
Assessment/Plan Assessment/Plan Assessment/Plan (Daily) 1. acute Kidney injury on CKD III due to hemodynamics and prerenal azotemia 2. 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 H/o HL 6. H/o Hypothyroidism 7. H/o PAD Plan: pt is on lasix 40mg PO daily, creatinine continues to rise - Lasix dcd IVF D51/2 NS at 50 cc/hr Procardia Xl for HTN control pt previously had a full CKD work up - no need ot repeat it will continue to follow up Patient seen in collaboration with dr Enedelia Rivera acute vs acute on chronic renal failure Consultation Date/Type/Reason Admit Date/Time Nov 22, 2018 at 14:27 Initial Consult Date 11/26/18 Type of Consult nephrology Reason for Consultation acute vs acute on chronic renal failure Requesting Provider: YOSHI GARG MD Date/Time of Note DATE: 11/28/18 TIME: 14:19 Detailed Summary Eyes: no complaints ENT: no complaints Respiratory: no complaints Cardiovascular: no complaints Gastrointestinal: no complaints Genitourinary: no complaints Musculoskeletal: no complaints Skin: no complaints Endocrine: no complaints Psychological: nl mood/affect Exam/Review of Systems Exam Vitals Vital Signs Date Temp Pulse Resp B/P (MAP) Pulse Ox O2 O2 Flow FiO2 Time Delivery Rate 11/28/18 73 12:01 11/28/18 97.7 20 119/58 97 Nasal 11:30 (78) Cannula 11/28/18 2.0 08:30 Intake and Output 11/27/18 11/27/18 11/28/18 1515:00 23:00 07:00 IntakeIntake Total 1380 ml 1410 ml BalanceBalance 1380 ml 1410 ml Constitutional: alert, well developed Psych: nl mood/affect Eyes: nl lids, nl sclera ENMT: nl external ears & nose Neck: non-tender Respiratory: clear to auscultation Musculoskeletal: nl extremities to inspection Extremities: normal pulses Neurological: nl speech, other (alert/responsive) Lymph: nontender Results Result Diagram: 11/27/1828 11/27/18527 Medications Medication Current Medications Albuterol (Ventolin Hfa) 2 puff Q4H RESP THERAPY PRN INH WHEEZING AND SOB Last administered on 11/23/18 14:56; Admin Dose 2 PUFF; Start 11/22/18 at 18:30 Atorvastatin Calcium (Lipitor) 10 mg QHS PO Last administered on 11/27/18 21:26; Admin Dose 10 MG; Start 11/22/18 at 21:00 Clopidogrel Bisulfate (plaVIX) 75 mg DAILY PO Last administered on 11/28/18 08:58; Admin Dose 75 MG; Start 11/23/18 at 09:00 Ferrous Sulfate (Ferrous Sulfate (Ec)) 325 mg DAILY PO Last administered on 11/28/18 08:57; Admin Dose 325 MG; Start 11/23/18 at 09:00 Levothyroxine Sodium (Synthroid) 25 mcg BEFORE BREAKFAST PO Last administered on 11/28/18 06:23; Admin Dose 25 MCG; Start 11/23/18 at 07:00 Pantoprazole (Protonix Tab) 40 mg AC BREAKFAST PO Last administered on 06:23; Admin Dose 40 MG; Start 11/23/18 at 07:00 IV Flush (NS 3 ml) 3 ml PER PROTOCOL IV ; Start 11/22/18 at 20:30 Ondansetron HCl (Zofran Inj) 4 mg Q6H PRN IV NAUSEA/VOMITING; Start 11/22/18 at 20:30 Aspirin (Aspirin) 81 mg DAILY PO Last administered on 11/28/18 08:57; Admin Dose 81 MG; Start 11/23/18 at 09:00 Nitroglycerin (Nitroglycerin (Sl Tab) 0.4 Mg) 1 tab Q5M PRN SL .CHEST PAIN; Start 11/22/18 at 20:30 Acetaminophen (Tylenol Tab) 650 mg Q6H PRN PO .PAIN 1-3 OR TEMP; Start 11/22/18 at 20:30 Acetaminophen/ Hydrocodone Bitart ([place] (5/325)) 1 tab Q6H PRN PO .PAIN 4-6 Last administered on 11/23/18 16:54; Admin Dose 1 TAB; Start 11/22/18 at 20:30 Morphine Sulfate (morphine) 2 mg Q4H PRN IV .PAIN 7-10 Last administered on 11/23/18 14:59; Admin Dose 2 MG; Start 11/22/18 at 20:30 Zolpidem Tartrate (Ambien) 5 mg QHS PRN PO .INSOMNIA Last administered on 11/27/18 23:35; Admin Dose 5 MG; Start 11/22/18 at 20:30 Docusate Sodium (Colace) 100 mg Q12H PRN PO .CONSTIPATION; Start 11/22/18 at 20:30 Magnesium Hydroxide (Milk Of Mag) 30 ml DAILY PRN PO .CONSTIPATION; Start 11/22/18 at 20:30 Famotidine (Pepcid) 20 mg Q24H PO Last administered on 11/27/18 21:27; Admin Dose 20 MG; Start 11/22/18 at 21:00 Multivit/Ca Carb/ B Cmplx/FA/Prenat (Wen-Justo) 1 tab DAILY PO Last administered on 11/28/18 08:58; Admin Dose 1 TAB; Start 11/23/18 at 09:00 Isosorbide Dinitrate (Isordil) 40 mg TID PO Last administered on 11/28/18 12:12; Admin Dose 40 MG; Start 11/23/18 at 09:00 Fluticasone/ Vilanterol (Breo Ellipta 100-25 Mcg Inh) 1 inh DAILY INH Last administered on 11/28/18 08:57; Admin Dose 1 INH; Start 11/23/18 at 10:00 Nifedipine (Procardia Xl) 60 mg BID PO Last administered on 11/28/18 08:58; Admin Dose 60 MG; Start 11/23/18 at 21:00 Dextrose/Sodium Chloride 1,000 ml @ 40 mls/hr Q24H IV Last administered on 11/28/18 04:10; Admin Dose 40 MLS/HR; Start 11/26/18 at 04:00 Hydralazine HCl (Apresoline) 100 mg TID PO ; Start 11/28/18 at 21:00 Carvedilol (Coreg) 12.5 mg BID PO ; Start 11/28/18 at 21:00 AMANDA DORSEY Nov 28, 2018 14:20
[2018-11-28] MEDS: FAMOTIDINE 20 MG TAB PO SCH (20:26)
[2018-11-28] MEDS: ATORVASTATIN 10 MG TAB PO SCH (20:26)
[2018-11-29] VITALS (11 sets, daily range): BP systolic 114–135; BP diastolic 57–66; PULSE 62–80; RESP 17–18
[2018-11-29] MEDS: PANTOPRAZOLE (EC) 40 MG TAB PO SCH (06:34)
[2018-11-29] MEDS: LEVOTHYROXINE 25 MCG TAB PO SCH (06:34)
[2018-11-29] MEDS: FLUTICASONE/VILANTEROL 100-25 INH SCH (11:00)
[2018-11-29] MEDS: ASPIRIN 81 MG TAB PO SCH (11:00)
[2018-11-29] MEDS: FERROUS SULFATE (EC) 325 MG TAB PO SCH (11:01)
[2018-11-29] MEDS: MULTIVIT/CA CARB/B CMPLX/FA TAB PO SCH (11:02)
[2018-11-29] MEDS: NIFEdipine (XL) 60 MG TAB PO SCH ×2 (11:02→21:26)
[2018-11-29] MEDS: ISOSORBIDE DINITRATE 20 MG TAB PO SCH ×3 (11:02→21:27)
[2018-11-29] MEDS: CLOPIDOGREL 75 MG TAB PO SCH (11:02)
--- NOTE | 2018-11-29 18:38 | PN ---
Date/Time of Note Date/Time of Note DATE: 11/29/18 TIME: 18:37 Assessment/Plan VTE Prophylaxis Risk score (from Nsg)>0 risk: 6 SCD applied (from Nsg): Yes Pharmacological prophylaxis: LMWH Lines/Catheters IV Catheter Type (from Nrsg): Peripheral IV Urinary Cath still in place: No Assessment/Plan Hospital Course Patient complains of shortness of breath with exertion and mild chest pain, continue current treatment, will obtain physical therapy. Assessment/Plan -Chest pain, rule out acute coronary syndrome. cardiac enzymes negative x3, stress test is negative for ischemia, continue aspirin, Plavix, nitroglycerin, morphine as needed for pain. Dr. Wren is following in cardiology consultation. -Hypertensive emergency. S/p nitroglycerin gtt. Continue Coreg and Procardia. 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 -Dyslipidemia. -Hypothyroidism, continue levothyroxine -Anemia, multifactorial, iron deficiency anemia and of chronic disease -History of total knee replacement -PVD -Obesity with BMI of 38.1. -Asthma, continue breathing treatment as needed. Further recommendations based on clinical course. Plan of care discussed with Dr. Segovia. Result Diagram: 11/29/18 0532 11/29/18 0532 Results 24hrs Laboratory Tests Test 11/29/18 05:32 White Blood Count 5.5 Red Blood Count 2.89 L Hemoglobin 8.5 L Hematocrit 27.7 L Mean Corpuscular Volume 95.8 Mean Corpuscular Hemoglobin 29.4 Mean Corpuscular Hemoglobin Concent 30.7 L Red Cell Distribution Width 13.7 Platelet Count 261 Mean Platelet Volume 10.5 H Immature Granulocytes % 0.400 Neutrophils % 54.0 Lymphocytes % 30.8 Monocytes % 12.5 H Eosinophils % 1.8 Basophils % 0.5 Nucleated Red Blood Cells % 0.0 Immature Granulocytes # 0.020 Neutrophils # 3.0 Lymphocytes # 1.7 Monocytes # 0.7 Eosinophils # 0.1 Basophils # 0.0 Nucleated Red Blood Cells # 0.0 Sodium Level 140 Potassium Level 5.1 Chloride Level 110 Carbon Dioxide Level 25 Anion Gap 5 Blood Urea Nitrogen 48 H Creatinine 2.09 H Est Glomerular Filtrat Rate mL/min Glucose Level 92 Calcium Level 8.0 L Exam/Review of Systems Exam Vitals Vital Signs Date Temp Pulse Resp B/P (MAP) Pulse Ox O2 O2 Flow FiO2 Time Delivery Rate 11/29/18 68 16:01 11/29/18 98.7 17 135/62 98 Nasal 15:07 (86) Cannula 11/29/18 2.0 11:13 Intake and Output 11/28/18 11/28/18 11/29/18 1515:00 23:00 07:00 IntakeIntake Total 1420 ml 850 ml BalanceBalance 1420 ml 850 ml Exam Constitutional: alert, oriented Respiratory: diminished breath sounds Cardiovascular: regular rate and rhythm Gastrointestinal: soft, non-tender Musculoskeletal: nl extremities to inspection Extremities: edema Neurological: nl mental status Skin: nl turgor Results Results 24hrs Laboratory Tests Test 11/29/18 05:32 White Blood Count 5.5 Red Blood Count 2.89 L Hemoglobin 8.5 L Hematocrit 27.7 L Mean Corpuscular Volume 95.8 Mean Corpuscular Hemoglobin 29.4 Mean Corpuscular Hemoglobin Concent 30.7 L Red Cell Distribution Width 13.7 Platelet Count 261 Mean Platelet Volume 10.5 H Immature Granulocytes % 0.400 Neutrophils % 54.0 Lymphocytes % 30.8 Monocytes % 12.5 H Eosinophils % 1.8 Basophils % 0.5 Nucleated Red Blood Cells % 0.0 Immature Granulocytes # 0.020 Neutrophils # 3.0 Lymphocytes # 1.7 Monocytes # 0.7 Eosinophils # 0.1 Basophils # 0.0 Nucleated Red Blood Cells # 0.0 Sodium Level 140 Potassium Level 5.1 Chloride Level 110 Carbon Dioxide Level 25 Anion Gap 5 Blood Urea Nitrogen 48 H Creatinine 2.09 H Est Glomerular Filtrat Rate mL/min Glucose Level 92 Calcium Level 8.0 L Medications Medication Current Medications Albuterol (Ventolin Hfa) 2 puff Q4H RESP THERAPY PRN INH WHEEZING AND SOB Last administered on 11/23/18at 14:56; Admin Dose 2 PUFF; Start 11/22/18 at 18:30 Atorvastatin Calcium (Lipitor) 10 mg QHS PO Last administered on 11/28/18at 20:26; Admin Dose 10 MG; Start 11/22/18 at 21:00 Clopidogrel Bisulfate (plaVIX) 75 mg DAILY PO Last administered on 11/29/18at 11:02; Admin Dose 75 MG; Start 11/23/18 at 09:00 Ferrous Sulfate (Ferrous Sulfate (Ec)) 325 mg DAILY PO Last administered on 11/29/18 11:01; Admin Dose 325 MG; Start 11/23/18 at 09:00 Levothyroxine Sodium (Synthroid) 25 mcg BEFORE BREAKFAST PO Last administered on 11/29/18 06:34; Admin Dose 25 MCG; Start 11/23/18 at 07:00 Pantoprazole (Protonix Tab) 40 mg AC BREAKFAST PO Last administered on 11/29/18 06:34; Admin Dose 40 MG; Start 11/23/18 at 07:00 IV Flush (NS 3 ml) 3 ml PER PROTOCOL IV ; Start 11/22/18 at 20:30 Ondansetron HCl (Zofran Inj) 4 mg Q6H PRN IV NAUSEA/VOMITING; Start 11/22/18 at 20:30 Aspirin (Aspirin) 81 mg DAILY PO Last administered on 11/29/18 11:00; Admin Dose 81 MG; Start 11/23/18 at 09:00 Nitroglycerin (Nitroglycerin (Sl Tab) 0.4 Mg) 1 tab Q5M PRN SL .CHEST PAIN; Start 11/22/18 at 20:30 Acetaminophen (Tylenol Tab) 650 mg Q6H PRN PO .PAIN 1-3 OR TEMP; Start 11/22/18 at 20:30 Acetaminophen/ Hydrocodone Bitart ([place] (5/325)) 1 tab Q6H PRN PO .PAIN 4-6 Last administered on 11/23/18 16:54; Admin Dose 1 TAB; Start 11/22/18 at 20:30 Morphine Sulfate (morphine) 2 mg Q4H PRN IV .PAIN 7-10 Last administered on 14:59; Admin Dose 2 MG; Start 11/22/18 at 20:30 Zolpidem Tartrate (Ambien) 5 mg QHS PRN PO .INSOMNIA Last administered on 11/27/18 23:35; Admin Dose 5 MG; Start 11/22/18 at 20:30 Docusate Sodium (Colace) 100 mg Q12H PRN PO .CONSTIPATION; Start 11/22/18 at 20:30 Magnesium Hydroxide (Milk Of Mag) 30 ml DAILY PRN PO .CONSTIPATION; Start 11/22/18 at 20:30 Famotidine (Pepcid) 20 mg Q24H PO Last administered on 11/28/18 20:26; Admin Dose 20 MG; Start 11/22/18 at 21:00 Multivit/Ca Carb/ B Cmplx/FA/Prenat (Wen-Justo) 1 tab DAILY PO Last administered on 11/29/18 11:02; Admin Dose 1 TAB; Start 11/23/18 at 09:00 Isosorbide Dinitrate (Isordil) 40 mg TID PO Last administered on 11/29/18 13:24; Admin Dose 40 MG; Start 11/23/18 at 09:00 Fluticasone/ Vilanterol (Breo Ellipta 100-25 Mcg Inh) 1 inh DAILY INH Last administered on 11/29/18 11:00; Admin Dose 1 INH; Start 11/23/18 at 10:00 Nifedipine (Procardia Xl) 60 mg BID PO Last administered on 11/29/18 11:02; Admin Dose 60 MG; Start 11/23/18 at 21:00 Hydralazine HCl (Apresoline) 100 mg TID PO Last administered on 11/29/18 13: 25; Admin Dose 100 MG; Start 11/28/18 at 21:00 Carvedilol (Coreg) 12.5 mg BID PO Last administered on 11/29/18 11:01; Admin Dose 12.5 MG; Start 11/28/18 at 21:00 TRICE ZAMORA Nov 29, 2018 18:38
--- NOTE | 2018-11-29 19:02 | CONS ---
Assessment/Plan Assessment/Plan Hospital Course (Demo Recall) IMp: 1.chest pain-neg trop x 3/NL EF by echo 07/03. NO ischemia by stress and normal EF 2.HTN-improved on current regimen 3.renal failure-acute on chronic 4.HYpothyroid 5. PAD Recc: -Tele -Contineu procardia/coreg/hydralazine with well controlled BP -Continue isordil -Contineu asa/plavix -CNow off lasix due to rising creatnine. Follow BP clsoely Consultation Date/Type/Reason Admit Date/Time Nov 22, 2018 at 14:27 Initial Consult Date 11/23/18 Type of Consult Cardiology Reason for Consultation HTN Requesting Provider: YOSHI GARG MD Date/Time of Note DATE: 11/29/18 TIME: 19:00 Exam/Review of Systems Vital Signs Vitals Vital Signs Date Temp Pulse Resp B/P (MAP) Pulse Ox O2 O2 Flow FiO2 Time Delivery Rate 11/29/18 68 16:01 11/29/18 98.7 17 135/62 98 Nasal 15:07 (86) Cannula 11/29/18 2.0 11:13 Intake and Output 11/28/18 11/28/18 11/29/18 1515:00 23:00 07:00 IntakeIntake Total 1420 ml 850 ml BalanceBalance 1420 ml 850 ml Exam Exam Review of Systems: CONSTITUTIONAL: No fevers, chills. PULMONARY: No sob CARDIOVASCULAR: No chest pain/palpitations GASTROINTESTINAL: No nausea/vomiting. GENITOURINARY: No hematuria/dysuria. MUSCULOSKELETAL: No myagias/arthalgias. PSYCHIATRIC: The patient denies depression. NEUROLOGIC: No weakness Constitutional: alert Psych: no complaints Head: normocephalic ENMT: mucosa pink and moist Neck: supple, jvd (9 cm water) Respiratory: clear to auscultation Cardiovascular: regular rate and rhythm Gastrointestinal: soft, non-tender Musculoskeletal: muscle weakness (mild generalized) Extremities: pitting pedal edema (trace/B) Neurological: other (No focal deficits) Labs Result Diagram: 11/29/18 0532 11/29/18 0532 Results 24hrs Laboratory Tests Test 11/29/18 05:32 White Blood Count 5.5 Red Blood Count 2.89 L Hemoglobin 8.5 L Hematocrit 27.7 L Mean Corpuscular Volume 95.8 Mean Corpuscular Hemoglobin 29.4 Mean Corpuscular Hemoglobin Concent 30.7 L Red Cell Distribution Width 13.7 Platelet Count 261 Mean Platelet Volume 10.5 H Immature Granulocytes % 0.400 Neutrophils % 54.0 Lymphocytes % 30.8 Monocytes % 12.5 H Eosinophils % 1.8 Basophils % 0.5 Nucleated Red Blood Cells % 0.0 Immature Granulocytes # 0.020 Neutrophils # 3.0 Lymphocytes # 1.7 Monocytes # 0.7 Eosinophils # 0.1 Basophils # 0.0 Nucleated Red Blood Cells # 0.0 Sodium Level 140 Potassium Level 5.1 Chloride Level 110 Carbon Dioxide Level 25 Anion Gap 5 Blood Urea Nitrogen 48 H Creatinine 2.09 H Est Glomerular Filtrat Rate mL/min Glucose Level 92 Calcium Level 8.0 L Medications Medications Current Medications Albuterol (Ventolin Hfa) 2 puff Q4H RESP THERAPY PRN INH WHEEZING AND SOB Last administered on 11/23/18at 14:56; Admin Dose 2 PUFF; Start 11/22/18 at 18:30 Atorvastatin Calcium (Lipitor) 10 mg QHS PO Last administered on 11/28/18 20:26; Admin Dose 10 MG; Start 11/22/18 at 21:00 Clopidogrel Bisulfate (plaVIX) 75 mg DAILY PO Last administered on 11/29/18 11:02; Admin Dose 75 MG; Start 11/23/18 at 09:00 Ferrous Sulfate (Ferrous Sulfate (Ec)) 325 mg DAILY PO Last administered on 11/29/18 11:01; Admin Dose 325 MG; Start 11/23/18 at 09:00 Levothyroxine Sodium (Synthroid) 25 mcg BEFORE BREAKFAST PO Last administered on 11/29/18 06:34; Admin Dose 25 MCG; Start 11/23/18 at 07:00 Pantoprazole (Protonix Tab) 40 mg AC BREAKFAST PO Last administered on 11/29/18 06:34; Admin Dose 40 MG; Start 11/23/18 at 07:00 IV Flush (NS 3 ml) 3 ml PER PROTOCOL IV ; Start 11/22/18 at 20:30 Ondansetron HCl (Zofran Inj) 4 mg Q6H PRN IV NAUSEA/VOMITING; Start 11/22/18 at 20:30 Aspirin (Aspirin) 81 mg DAILY PO Last administered on 11/29/18 11:00; Admin Dose 81 MG; Start 11/23/18 at 09:00 Nitroglycerin (Nitroglycerin (Sl Tab) 0.4 Mg) 1 tab Q5M PRN SL .CHEST PAIN; Start 11/22/18 at 20:30 Acetaminophen (Tylenol Tab) 650 mg Q6H PRN PO .PAIN 1-3 OR TEMP; Start 11/22/18 at 20:30 Acetaminophen/ Hydrocodone Bitart ([place] (5/325)) 1 tab Q6H PRN PO .PAIN 4-6 Last administered on 11/23/18 16:54; Admin Dose 1 TAB; Start 11/22/18 at 20:30 Morphine Sulfate (morphine) 2 mg Q4H PRN IV .PAIN 7-10 Last administered on 11/23/18 14:59; Admin Dose 2 MG; Start 11/22/18 at 20:30 Zolpidem Tartrate (Ambien) 5 mg QHS PRN PO .INSOMNIA Last administered on 11/27/18 23:35; Admin Dose 5 MG; Start 11/22/18 at 20:30 Docusate Sodium (Colace) 100 mg Q12H PRN PO .CONSTIPATION; Start 11/22/18 at 20:30 Magnesium Hydroxide (Milk Of Mag) 30 ml DAILY PRN PO .CONSTIPATION; Start 11/22/18 at 20:30 Famotidine (Pepcid) 20 mg Q24H PO Last administered on 11/28/18 20:26; Admin Dose 20 MG; Start 11/22/18 at 21:00 Multivit/Ca Carb/ B Cmplx/FA/Prenat (Wen-Justo) 1 tab DAILY PO Last administe red on 11/29/18 11:02; Admin Dose 1 TAB; Start 11/23/18 at 09:00 Isosorbide Dinitrate (Isordil) 40 mg TID PO Last administered on 11/29/18 13:24; Admin Dose 40 MG; Start 11/23/18 at 09:00 Fluticasone/ Vilanterol (Breo Ellipta 100-25 Mcg Inh) 1 inh DAILY INH Last administered on 11/29/18 11:00; Admin Dose 1 INH; Start 11/23/18 at 10:00 Nifedipine (Procardia Xl) 60 mg BID PO Last administered on 11/29/18 11:02; Admin Dose 60 MG; Start 11/23/18 at 21:00 Hydralazine HCl (Apresoline) 100 mg TID PO Last administered on 11/29/18 13:25; Admin Dose 100 MG; Start 11/28/18 at 21:00 Carvedilol (Coreg) 12.5 mg BID PO Last administered on 11/29/18 11:01; Admin Dose 12.5 MG; Start 11/28/18 at 21:00 KERMIT DONOHUE Nov 29, 2018 19:02
--- NOTE | 2018-11-29 20:31 | CONS ---
Assessment/Plan Assessment/Plan Assessment/Plan (Daily) 1. acute Kidney injury on CKD III due to hemodynamics and prerenal azotemia 2. 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 H/o HL 6. H/o Hypothyroidism 7. H/o PAD Plan: pt is on lasix 40mg PO daily, creatinine continues to rise - Lasix dcd IVF D51/2 NS at 50 cc/hr Procardia Xl for HTN control pt previously had a full CKD work up - no need ot repeat it will continue to follow up Patient seen in collaboration with dr Enedelia Rivera Consultation Date/Type/Reason Admit Date/Time Nov 22, 2018 at 14:27 Initial Consult Date 11/26/18 Type of Consult nephrology Reason for Consultation acute vs acute on chronic renal failure Requesting Provider: YOSHI GARG MD Date/Time of Note DATE: 11/29/18 TIME: 20:31 Detailed Summary Eyes: no complaints ENT: no complaints Respiratory: no complaints Cardiovascular: no complaints Gastrointestinal: no complaints Genitourinary: no complaints Musculoskeletal: no complaints Skin: no complaints Neurologic: no complaints Exam/Review of Systems Exam Vitals Vital Signs Date Temp Pulse Resp B/P (MAP) Pulse Ox O2 O2 Flow FiO2 Time Delivery Rate 11/29/18 Nasal 2.0 19:34 Cannula 11/29/18 98.3 70 18 124/63 98 19:27 (83) Intake and Output 11/28/18 11/28/18 11/29/18 1515:00 23:00 07:00 IntakeIntake Total 1420 ml 850 ml BalanceBalance 1420 ml 850 ml Constitutional: alert, well developed Psych: nl mood/affect Head: normocephalic Eyes: nl lids, nl sclera ENMT: nl external ears & nose Neck: supple Respiratory: clear to auscultation Gastrointestinal: soft, non-tender Musculoskeletal: nl extremities to inspection Neurological: other (alert, responsive ) Lymph: nontender Results Result Diagram: 11/29/18 0532 11/29/18 0532 Results 24hrs Laboratory Tests Test 11/29/18 05:32 White Blood Count 5.5 Red Blood Count 2.89 L Hemoglobin 8.5 L Hematocrit 27.7 L Mean Corpuscular Volume 95.8 Mean Corpuscular Hemoglobin 29.4 Mean Corpuscular Hemoglobin Concent 30.7 L Red Cell Distribution Width 13.7 Platelet Count 261 Mean Platelet Volume 10.5 H Immature Granulocytes % 0.400 Neutrophils % 54.0 Lymphocytes % 30.8 Monocytes % 12.5 H Eosinophils % 1.8 Basophils % 0.5 Nucleated Red Blood Cells % 0.0 Immature Granulocytes # 0.020 Neutrophils # 3.0 Lymphocytes # 1.7 Monocytes # 0.7 Eosinophils # 0.1 Basophils # 0.0 Nucleated Red Blood Cells # 0.0 Sodium Level 140 Potassium Level 5.1 Chloride Level 110 Carbon Dioxide Level 25 Anion Gap 5 Blood Urea Nitrogen 48 H Creatinine 2.09 H Est Glomerular Filtrat Rate mL/min Glucose Level 92 Calcium Level 8.0 L Medications Medication Current Medications Albuterol (Ventolin Hfa) 2 puff Q4H RESP THERAPY PRN INH WHEEZING AND SOB Last administered on 11/23/18 14:56; Admin Dose 2 PUFF; Start 11/22/18 at 18:30 Atorvastatin Calcium (Lipitor) 10 mg QHS PO Last administered on 11/28/18 20:26; Admin Dose 10 MG; Start 11/22/18 at 21:00 Clopidogrel Bisulfate (plaVIX) 75 mg DAILY PO Last administered on 11/29/18 11:02; Admin Dose 75 MG; Start 11/23/18 at 09:00 Ferrous Sulfate (Ferrous Sulfate (Ec)) 325 mg DAILY PO Last administered on 11/29/18 11:01; Admin Dose 325 MG; Start 11/23/18 at 09:00 Levothyroxine Sodium (Synthroid) 25 mcg BEFORE BREAKFAST PO Last administered on 11/29/18 06:34; Admin Dose 25 MCG; Start 11/23/18 at 07:00 Pantoprazole (Protonix Tab) 40 mg AC BREAKFAST PO Last administered on 11/29/18 06:34; Admin Dose 40 MG; Start 11/23/18 at 07:00 IV Flush (NS 3 ml) 3 ml PER PROTOCOL IV ; Start 11/22/18 at 20:30 Ondansetron HCl (Zofran Inj) 4 mg Q6H PRN IV NAUSEA/VOMITING; Start 11/22/18 at 20:30 Aspirin (Aspirin) 81 mg DAILY PO Last administered on 11/29/18 11:00; Admin Dose 81 MG; Start 11/23/18 at 09:00 Nitroglycerin (Nitroglycerin (Sl Tab) 0.4 Mg) 1 tab Q5M PRN SL .CHEST PAIN; Start 11/22/18 at 20:30 Acetaminophen (Tylenol Tab) 650 mg Q6H PRN PO .PAIN 1-3 OR TEMP; Start 11/22/18 at 20:30 Acetaminophen/ Hydrocodone Bitart ([place] (5/325)) 1 tab Q6H PRN PO .PAIN 4-6 Last administered on 11/23/18at 16:54; Admin Dose 1 TAB; Start 11/22/18 at 20:30 Morphine Sulfate (morphine) 2 mg Q4H PRN IV .PAIN 7-10 Last administered on 11/23/18 14:59; Admin Dose 2 MG; Start 11/22/18 at 20:30 Zolpidem Tartrate (Ambien) 5 mg QHS PRN PO .INSOMNIA Last administered on 11/27/18 23:35; Admin Dose 5 MG; Start 11/22/18 at 20:30 Docusate Sodium (Colace) 100 mg Q12H PRN PO .CONSTIPATION; Start 11/22/18 at 20:30 Magnesium Hydroxide (Milk Of Mag) 30 ml DAILY PRN PO .CONSTIPATION; Start 11/22/18 at 20:30 Famotidine (Pepcid) 20 mg Q24H PO Last administered on 11/28/18at 20:26; Admin Dose 20 MG; Start 11/22/18 at 21:00 Multivit/Ca Carb/ B Cmplx/FA/Prenat (Wen-Jsuto) 1 tab DAILY PO Last administered on 11/29/18 11:02; Admin Dose 1 TAB; Start 11/23/18 at 09:00 Isosorbide Dinitrate (Isordil) 40 mg TID PO Last administered on 11/29/18 13:24; Admin Dose 40 MG; Start 11/23/18 at 09:00 Fluticasone/ Vilanterol (Breo Ellipta 100-25 Mcg Inh) 1 inh DAILY INH Last administered on 11/29/18 11:00; Admin Dose 1 INH; Start 11/23/18 at 10:00 Nifedipine (Procardia Xl) 60 mg BID PO Last administered on 11/29/18 11:02; Admin Dose 60 MG; Start 11/23/18 at 21:00 Hydralazine HCl (Apresoline) 100 mg TID PO Last administered on 11/29/18at 13:25; Admin Dose 100 MG; Start 11/28/18 at 21:00 Carvedilol (Coreg) 12.5 mg BID PO Last administered on 11/29/18at 11:01; Admin D ose 12.5 MG; Start 11/28/18 at 21:00 AMANDA DORSEY Nov 29, 2018 20:31
[2018-11-29] MEDS: ATORVASTATIN 10 MG TAB PO SCH (21:24)
[2018-11-29] MEDS: FAMOTIDINE 20 MG TAB PO SCH (21:26)
[2018-11-30] VITALS (11 sets, daily range): BP systolic 103–138; BP diastolic 53–81; PULSE 65–78; RESP 18–19
--- NOTE | 2018-11-30 07:56 | CONS ---
Consult Date/Type/Reason Admit Date/Time Nov 22, 2018 at 14:27 Initial Consult Date 11/26/18 Requesting Provider: YOSHI GARG MD Date/Time of Note DATE: 11/30/18 TIME: 07:52 Subjective NO acute events - pt comfortable - improved with diuresis. Will monitor clinically now. Overall better today. ROS: No fever, no chills, no nausea, no vomiting, no diarrhea/constipation - improved SOB No recent weight changes No chest pain, no PND, no orthopnea No dizziness, blurred vision No thirst, no heat or cold intolerance Objective Vitals Vital Signs Date Temp Pulse Resp B/P (MAP) Pulse Ox O2 O2 Flow FiO2 Time Delivery Rate 11/30/18 Nasal 2.0 07:43 Cannula 11/30/18 98.5 71 18 113/58 98 04:41 (76) Results/Medications Result Diagram: 11/30/18 0539 11/30/18 0539 Results 24 hrs Laboratory Tests Test 11/30/18 05:39 White Blood Count 5.0 Red Blood Count 2.82 L Hemoglobin 8.3 L Hematocrit 27.0 L Mean Corpuscular Volume 95.7 Mean Corpuscular Hemoglobin 29.4 Mean Corpuscular Hemoglobin Concent 30.7 L Red Cell Distribution Width 13.6 Platelet Count 271 Mean Platelet Volume 10.4 Immature Granulocytes % 0.200 Neutrophils % 53.8 Lymphocytes % 29.7 Monocytes % 13.3 H Eosinophils % 2.4 Basophils % 0.6 Nucleated Red Blood Cells % 0.0 Immature Granulocytes # 0.010 Neutrophils # 2.7 Lymphocytes # 1.5 Monocytes # 0.7 Eosinophils # 0.1 Basophils # 0.0 Nucleated Red Blood Cells # 0.0 Sodium Level 139 Potassium Level 4.8 Chloride Level 109 Carbon Dioxide Level 26 Anion Gap 4 L Blood Urea Nitrogen 47 H Creatinine 1.89 H Est Glomerular Filtrat Rate mL/min Glucose Level 91 Calcium Level 8.6 Home Meds Reported Medications Brinzolamide-Brimonidine (Simbrinza 1%-0.2% Oph) 1%-0.2% - 8 Ml Drops.susp, 1 DROP BOTH EYES TID, EA 11/22/18 Albuterol Sulfate* (Proair HFA*) 8.5 Gm Hfa.aer.ad, 2 PUFF INH Q4H PRN for WHEEZING AND SOB, #1 INHALER 11/22/18 Pantoprazole* (Pantoprazole*) 40 Mg Tablet.dr, 40 MG PO AC BREAKFAST, TAB 11/22/18 Nifedipine* (Nifedipine ER*) 30 Mg Tablet.sa, 30 MG PO DAILY, TAB.SA 11/22/18 [Nephro-Justo] No Conflict Check, 1 TAB PO DAILY PRN for DIRECTED 11/22/18 Losartan Potassium* (Losartan Potassium*) 50 Mg Tablet, 50 MG PO DAILY, TAB 11/22/18 Levothyroxine Sodium* (Levothyroxine Sodium*) 25 Mcg Tablet, 25 MCG PO BEFORE BREAKFAST, #30 TAB 11/22/18 Isosorbide Dinitrate* (Isordil*) 40 Mg Tablet, 40 MG PO TID, TAB 11/22/18 Hydralazine Hcl* (Hydralazine Hcl*) 100 Mg Tablet, 100 MG PO BID, #90 TAB 11/22/18 Furosemide* (Furosemide*) 40 Mg Tablet, 40 MG PO DAILY, TAB 11/22/18 Ferrous Sulfate* (Ferrous Sulfate*) 325 Mg Tabec, 325 MG PO DAILY, TAB 11/22/18 Clopidogrel Bisulfate* (Clopidogrel Bisulfate*) 75 Mg Tablet, 75 MG PO DAILY, #30 TAB 11/22/18 Carvedilol* (Carvedilol*) 6.25 Mg Tablet, 6.25 MG PO BID, #60 TAB 11/22/18 Capsaicin (Capsaicin) 42.5 Gm Cream.gm., 1 APPLIC TOP QID, #1 TUB 11/22/18 Atorvastatin Calcium (Atorvastatin Calcium) 10 Mg Tablet, 10 MG PO QHS, #30 TAB 11/22/18 Salmeterol Xinaf-Fluticasone* (Advair*) 100/50 Diskus Inhaler, 1 INH INHALATION BID, #1 INHALER 11/22/18 Medications Current Medications Albuterol (Ventolin Hfa) 2 puff Q4H RESP THERAPY PRN INH WHEEZING AND SOB Last administered on 11/23/18at 14:56; Admin Dose 2 PUFF; Start 11/22/18 at 18:30 Atorvastatin Calcium (Lipitor) 10 mg QHS PO Last administered on 11/29/18at 21:24; Admin Dose 10 MG; Start 11/22/18 at 21:00 Clopidogrel Bisulfate (plaVIX) 75 mg DAILY PO Last administered on 11/29/18 11:02; Admin Dose 75 MG; Start 11/23/18 at 09:00 Ferrous Sulfate (Ferrous Sulfate (Ec)) 325 mg DAILY PO Last administered on 11/29/18 11:01; Admin Dose 325 MG; Start 11/23/18 at 09:00 Levothyroxine Sodium (Synthroid) 25 mcg BEFORE BREAKFAST PO Last administered on 11/29/18 06:34; Admin Dose 25 MCG; Start 11/23/18 at 07:00 Pantoprazole (Protonix Tab) 40 mg AC BREAKFAST PO Last administered on 11/29/18 06:34; Admin Dose 40 MG; Start 11/23/18 at 07:00 IV Flush (NS 3 ml) 3 ml PER PROTOCOL IV ; Start 11/22/18 at 20:30 Ondansetron HCl (Zofran Inj) 4 mg Q6H PRN IV NAUSEA/VOMITING; Start 11/22/18 at 20:30 Aspirin (Aspirin) 81 mg DAILY PO Last administered on 11/29/18 11:00; Admin Dose 81 MG; Start 11/23/18 at 09:00 Nitroglycerin (Nitroglycerin (Sl Tab) 0.4 Mg) 1 tab Q5M PRN SL .CHEST PAIN; Start 11/22/18 at 20:30 Acetaminophen (Tylenol Tab) 650 mg Q6H PRN PO .PAIN 1-3 OR TEMP; Start 11/22/18 at 20:30 Acetaminophen/ Hydrocodone Bitart ([place] (5/325)) 1 tab Q6H PRN PO .PAIN 4-6 Last administered on 11/23/18at 16:54; Admin Dose 1 TAB; Start 11/22/18 at 20:30 Morphine Sulfate (morphine) 2 mg Q4H PRN IV .PAIN 7-10 Last administered on 11/23/18 14:59; Admin Dose 2 MG; Start 11/22/18 at 20:30 Zolpidem Tartrate (Ambien) 5 mg QHS PRN PO .INSOMNIA Last administered on 11/27/18 23:35; Admin Dose 5 MG; Start 11/22/18 at 20:30 Docusate Sodium (Colace) 100 mg Q12H PRN PO .CONSTIPATION; Start 11/22/18 at 20:30 Magnesium Hydroxide (Milk Of Mag) 30 ml DAILY PRN PO .CONSTIPATION; Start 11/22/18 at 20:30 Famotidine (Pepcid) 20 mg Q24H PO Last administered on 11/29/18 21:26; Admin Dose 20 MG; Start 11/22/18 at 21:00 Multivit/Ca Carb/ B Cmplx/FA/Prenat (Wen-Justo) 1 tab DAILY PO Last administered on 11/29/18 11:02; Admin Dose 1 TAB; Start 11/23/18 at 09:00 Isosorbide Dinitrate (Isordil) 40 mg TID PO Last administered on 11/29/18 21:27; Admin Dose 40 MG; Start 11/23/18 at 09:00 Fluticasone/ Vilanterol (Breo Ellipta 100-25 Mcg Inh) 1 inh DAILY INH Last administered on 11/29/18 11:00; Admin Dose 1 INH; Start 11/23/18 at 10:00 Nifedipine (Procardia Xl) 60 mg BID PO Last administered on 11/29/18 21:26; Admin Dose 60 MG; Start 11/23/18 at 21:00 Hydralazine HCl (Apresoline) 100 mg TID PO Last administered on 11/29/18 21:25; Admin Dose 100 MG; Start 11/28/18 at 21:00 Carvedilol (Coreg) 12.5 mg BID PO Last administered on 11/29/18 21:27; Admin Dose 12.5 MG; Start 11/28/18 at 21:00 Assessment/Plan Hospital Course (Demo Recall) 1.Chest pain-neg trop x 3/NL EF by echo 07/03. NO ischemia by stress and normal EF - no CP now - no focal ectopy on tele. 2.HTN-improved on current regimen - will monitor with increased Cr now at 1.89 3.renal failure-acute on chronic - renal team follows, avoid nephrotoxic meds 4.Hypothyroid - replaced. 5. PAD - con'r current therapy. ADONAY PATEL MD Nov 30, 2018 07:56
[2018-11-30] MEDS: MULTIVIT/CA CARB/B CMPLX/FA TAB PO SCH (08:05)
[2018-11-30] MEDS: FERROUS SULFATE (EC) 325 MG TAB PO SCH (08:05)
[2018-11-30] MEDS: ASPIRIN 81 MG TAB PO SCH (08:05)
[2018-11-30] MEDS: PANTOPRAZOLE (EC) 40 MG TAB PO SCH (08:05)
[2018-11-30] MEDS: LEVOTHYROXINE 25 MCG TAB PO SCH (08:05)
[2018-11-30] MEDS: CLOPIDOGREL 75 MG TAB PO SCH (08:05)
[2018-11-30] MEDS: FLUTICASONE/VILANTEROL 100-25 INH SCH (08:06)
[2018-11-30] MEDS: NIFEdipine (XL) 60 MG TAB PO SCH ×2 (08:06→21:00)
[2018-11-30] MEDS: ISOSORBIDE DINITRATE 20 MG TAB PO SCH ×3 (08:07→21:01)
--- NOTE | 2018-11-30 12:42 | CONS ---
Assessment/Plan Assessment/Plan Assessment/Plan (Daily) Chest x-ray is unremarkable. Assessment and recommendations; 1. Patient admitted with chest pain with severe coughing and wheezing due to acute bronchitis and asthma exacerbation. Chest pain likely is musculoskeletal from coughing. 2. Other comorbidities include history of chronic renal insufficiency, anemia, hypertension, peripheral vascular disease, and hypothyroidism. Start DuoNeb every 6 hours scheduled. Solu-Medrol 40 mg every 6 hours. Zithromax orally as a Medrol Dosepak. Continue other supportive measures. Consultation Date/Type/Reason Admit Date/Time Nov 22, 2018 at 14:27 Date of Consultation: Nov 30, 2018 Type of Consult Pulmonary Patient is a pleasant 72-year-old lady who came into the hospital on the of this month with a few days history of coughing wheezing shortness of breath and chest pain associated with coughing. Patient has undergone stress test which has been negative. By the time I saw her, patient was having several bouts of coughing and appeared very congested. Patient denies any further chest pain. Any fever, chills, any body aches or myalgias. Past medical history; 1. History of asthma. 2. Hypertension 3. Peripheral vascular disease. 4. Chronic renal insufficiency. 5. History of knee replacement. 6. Chronic anemia. 7. Hypothyroidism. Medications; reviewed. Allergies; none. Social history; noncontributory. Family history; noncontributory. Occupational history; patient has been a housewife. Review of systems; denies any headache, sinus symptoms. Any seizures. Any sore throat, dysphagia denies any further chest pain. Complains of chest congestion, coughing, wheezing, shortness of breath. Denies any abdominal pain, nausea or vomiting. Any edema. Orthopnea. Any melena or hematochezia. General exam; elderly woman, sitting in a chair by bedside. Several bouts of severe coughing were observed. Date/Time of Note DATE: 11/30/18 TIME: 12:38 Past Medical History Home Meds Reported Medications Brinzolamide-Brimonidine (Simbrinza 1%-0.2% Oph) 1%-0.2% - 8 Ml Drops.susp, 1 DROP BOTH EYES TID, EA 11/22/18 Albuterol Sulfate* (Proair HFA*) 8.5 Gm Hfa.aer.ad, 2 PUFF INH Q4H PRN for WHEEZING AND SOB, #1 INHALER 11/22/18 Pantoprazole* (Pantoprazole*) 40 Mg Tablet.dr, 40 MG PO AC BREAKFAST, TAB 11/22/18 Nifedipine* (Nifedipine ER*) 30 Mg Tablet.sa, 30 MG PO DAILY, TAB.SA 11/22/18 [Nephro-Justo] No Conflict Check, 1 TAB PO DAILY PRN for DIRECTED 11/22/18 Losartan Potassium* (Losartan Potassium*) 50 Mg Tablet, 50 MG PO DAILY, TAB 11/22/18 Levothyroxine Sodium* (Levothyroxine Sodium*) 25 Mcg Tablet, 25 MCG PO BEFORE BREAKFAST, #30 TAB 11/22/18 Isosorbide Dinitrate* (Isordil*) 40 Mg Tablet, 40 MG PO TID, TAB 11/22/18 Hydralazine Hcl* (Hydralazine Hcl*) 100 Mg Tablet, 100 MG PO BID, #90 TAB 11/22/18 Furosemide* (Furosemide*) 40 Mg Tablet, 40 MG PO DAILY, TAB 11/22/18 Ferrous Sulfate* (Ferrous Sulfate*) 325 Mg Tabec, 325 MG PO DAILY, TAB 11/22/18 Clopidogrel Bisulfate* (Clopidogrel Bisulfate*) 75 Mg Tablet, 75 MG PO DAILY, #30 TAB 11/22/18 Carvedilol* (Carvedilol*) 6.25 Mg Tablet, 6.25 MG PO BID, #60 TAB 11/22/18 Capsaicin (Capsaicin) 42.5 Gm Cream.gm., 1 APPLIC TOP QID, #1 TUB 11/22/18 Atorvastatin Calcium (Atorvastatin Calcium) 10 Mg Tablet, 10 MG PO QHS, #30 TAB 11/22/18 Salmeterol Xinaf-Fluticasone* (Advair*) 100/50 Diskus Inhaler, 1 INH INHALATION BID, #1 INHALER 11/22/18 Medications Current Medications Albuterol (Ventolin Hfa) 2 puff Q4H RESP THERAPY PRN INH WHEEZING AND SOB Last administered on 11/23/18at 14:56; Admin Dose 2 PUFF; Start 11/22/18 at 18:30 Atorvastatin Calcium (Lipitor) 10 mg QHS PO Last administered on 11/29/18at 21:24; Admin Dose 10 MG; Start 11/22/18 at 21:00 Clopidogrel Bisulfate (plaVIX) 75 mg DAILY PO Last administered on 11/30/18 08:05; Admin Dose 75 MG; Start 11/23/18 at 09:00 Ferrous Sulfate (Ferrous Sulfate (Ec)) 325 mg DAILY PO Last administered on 11/30/18 08:05; Admin Dose 325 MG; Start 11/23/18 at 09:00 Levothyroxine Sodium (Synthroid) 25 mcg BEFORE BREAKFAST PO Last administered on 11/30/18 08:05; Admin Dose 25 MCG; Start 11/23/18 at 07:00 Pantoprazole (Protonix Tab) 40 mg AC BREAKFAST PO Last administered on 11/30/18 08:05; Admin Dose 40 MG; Start 11/23/18 at 07:00 IV Flush (NS 3 ml) 3 ml PER PROTOCOL IV ; Start 11/22/18 at 20:30 Ondansetron HCl (Zofran Inj) 4 mg Q6H PRN IV NAUSEA/VOMITING; Start 11/22/18 at 20:30 Aspirin (Aspirin) 81 mg DAILY PO Last administered on 11/30/18 08:05; Admin Dose 81 MG; Start 11/23/18 at 09:00 Nitroglycerin (Nitroglycerin (Sl Tab) 0.4 Mg) 1 tab Q5M PRN SL .CHEST PAIN; Start 11/22/18 at 20:30 Acetaminophen (Tylenol Tab) 650 mg Q6H PRN PO .PAIN 1-3 OR TEMP; Start 11/22/18 at 20:30 Acetaminophen/ Hydrocodone Bitart ([place] (5/325)) 1 tab Q6H PRN PO .PAIN 4-6 Last administered on 11/23/18 16:54; Admin Dose 1 TAB; Start 11/22/18 at 20:30 Morphine Sulfate (morphine) 2 mg Q4H PRN IV .PAIN 7-10 Last administered on 11/23/18 14:59; Admin Dose 2 MG; Start 11/22/18 at 20:30 Zolpidem Tartrate (Ambien) 5 mg QHS PRN PO .INSOMNIA Last administered on 11/27/18 23:35; Admin Dose 5 MG; Start 11/22/18 at 20:30 Docusate Sodium (Colace) 100 mg Q12H PRN PO .CONSTIPATION; Start 11/22/18 at 20:30 Magnesium Hydroxide (Milk Of Mag) 30 ml DAILY PRN PO .CONSTIPATION; Start 11/22/18 at 20:30 Famotidine (Pepcid) 20 mg Q24H PO Last administered on 11/29/18at 21:26; Admin Dose 20 MG; Start 11/22/18 at 21:00 Multivit/Ca Carb/ B Cmplx/FA/Prenat (Wen-Justo) 1 tab DAILY PO Last administered on 11/30/18at 08:05; Admin Dose 1 TAB; Start 11/23/18 at 09:00 Isosorbide Dinitrate (Isordil) 40 mg TID PO Last administered on 11/30/18 08:07; Admin Dose 40 MG; Start 11/23/18 at 09:00 Fluticasone/ Vilanterol (Breo Ellipta 100-25 Mcg Inh) 1 inh DAILY INH Last administered on 11/30/18 08:06; Admin Dose 1 INH; Start 11/23/18 at 10:00 Nifedipine (Procardia Xl) 60 mg BID PO Last administered on 11/30/18 08:06; Admin Dose 60 MG; Start 11/23/18 at 21:00 Hydralazine HCl (Apresoline) 100 mg TID PO Last administered on 11/30/18 08:06; Admin Dose 100 MG; Start 11/28/18 at 21:00 Carvedilol (Coreg) 12.5 mg BID PO Last administered on 11/30/18 08:06; Admin Dose 12.5 MG; Start 11/28/18 at 21:00 Allergies: Coded Allergies: No Known Allergy (Unverified , 11/22/18) Past Surgical History Past Surgical Hx: other (Left knee arthroplasty in April 2018) Social History Alcohol Use: none Smoking Status: Never smoker Drug Use: none Exam/Review of Systems Exam Vitals Vital Signs Date Temp Pulse Resp B/P (MAP) Pulse Ox O2 O2 Flow FiO2 Time Delivery Rate 11/30/18 71 12:04 11/30/18 97.9 19 103/53 97 Nasal 2.0 10:51 (70) Cannula Exam H EENT exam; supple neck, no JVD. No lymphadenopathy. Midline trachea. No thyromegaly. No neck masses. Pupils are small bilaterally. Carious teeth. Chest exam; diminished breath sounds throughout with bilateral wheezing. S1-S2 audible, no murmurs. Regular rhythm. Abdomen exam; soft, protuberant. No organomegaly. Bowel sounds audible. Extremity exam; no peripheral edema clubbing. Pulses 1+. [employer] exam; no focal deficit. Results Result Diagram: 11/30/18 0539 11/30/18 0539 Results 24hrs Laboratory Tests Test 11/30/18 05:39 White Blood Count 5.0 Red Blood Count 2.82 L Hemoglobin 8.3 L Hematocrit 27.0 L Mean Corpuscular Volume 95.7 Mean Corpuscular Hemoglobin 29.4 Mean Corpuscular Hemoglobin Concent 30.7 L Red Cell Distribution Width 13.6 Platelet Count 271 Mean Platelet Volume 10.4 Immature Granulocytes % 0.200 Neutrophils % 53.8 Lymphocytes % 29.7 Monocytes % 13.3 H Eosinophils % 2.4 Basophils % 0.6 Nucleated Red Blood Cells % 0.0 Immature Granulocytes # 0.010 Neutrophils # 2.7 Lymphocytes # 1.5 Monocytes # 0.7 Eosinophils # 0.1 Basophils # 0.0 Nucleated Red Blood Cells # 0.0 Sodium Level 139 Potassium Level 4.8 Chloride Level 109 Carbon Dioxide Level 26 Anion Gap 4 L Blood Urea Nitrogen 47 H Creatinine 1.89 H Est Glomerular Filtrat Rate mL/min Glucose Level 91 Calcium Level 8.6 Medications Medication Current Medications Albuterol (Ventolin Hfa) 2 puff Q4H RESP THERAPY PRN INH WHEEZING AND SOB Last administered on 11/23/18at 14:56; Admin Dose 2 PUFF; Start 11/22/18 at 18:30 Atorvastatin Calcium (Lipitor) 10 mg QHS PO Last administered on 11/29/18at 21:24; Admin Dose 10 MG; Start 11/22/18 at 21:00 Clopidogrel Bisulfate (plaVIX) 75 mg DAILY PO Last administered on 11/30/18 08:05; Admin Dose 75 MG; Start 11/23/18 at 09:00 Ferrous Sulfate (Ferrous Sulfate (Ec)) 325 mg DAILY PO Last administered on 11/30/18 08:05; Admin Dose 325 MG; Start 11/23/18 at 09:00 Levothyroxine Sodium (Synthroid) 25 mcg BEFORE BREAKFAST PO Last administered on 11/30/18 08:05; Admin Dose 25 MCG; Start 11/23/18 at 07:00 Pantoprazole (Protonix Tab) 40 mg AC BREAKFAST PO Last administered on 11/30/18 08:05; Admin Dose 40 MG; Start 11/23/18 at 07:00 IV Flush (NS 3 ml) 3 ml PER PROTOCOL IV ; Start 11/22/18 at 20:30 Ondansetron HCl (Zofran Inj) 4 mg Q6H PRN IV NAUSEA/VOMITING; Start 11/22/18 at 20:30 Aspirin (Aspirin) 81 mg DAILY PO Last administered on 11/30/18 08:05; Admin Dose 81 MG; Start 11/23/18 at 09:00 Nitroglycerin (Nitroglycerin (Sl Tab) 0.4 Mg) 1 tab Q5M PRN SL .CHEST PAIN; Start 11/22/18 at 20:30 Acetaminophen (Tylenol Tab) 650 mg Q6H PRN PO .PAIN 1-3 OR TEMP; Start 11/22/18 at 20:30 Acetaminophen/ Hydrocodone Bitart ([place] (5/325)) 1 tab Q6H PRN PO .PAIN 4-6 Last administered on 11/23/18 16:54; Admin Dose 1 TAB; Start 11/22/18 at 20:30 Morphine Sulfate (morphine) 2 mg Q4H PRN IV .PAIN 7-10 Last administered on 11/23/18 14:59; Admin Dose 2 MG; Start 11/22/18 at 20:30 Zolpidem Tartrate (Ambien) 5 mg QHS PRN PO .INSOMNIA Last administered on 11/13 23:35; Admin Dose 5 MG; Start 11/22/18 at 20:30 Docusate Sodium (Colace) 100 mg Q12H PRN PO .CONSTIPATION; Start 11/22/18 at 20:30 Magnesium Hydroxide (Milk Of Mag) 30 ml DAILY PRN PO .CONSTIPATION; Start 11/22/18 at 20:30 Famotidine (Pepcid) 20 mg Q24H PO Last administered on 11/29/18 21:26; Admin Dose 20 MG; Start 11/22/18 at 21:00 Multivit/Ca Carb/ B Cmplx/FA/Prenat (Wen-Justo) 1 tab DAILY PO Last administered on 11/30/18 08:05; Admin Dose 1 TAB; Start 11/23/18 at 09:00 Isosorbide Dinitrate (Isordil) 40 mg TID PO Last administered on 11/30/18 08:07; Admin Dose 40 MG; Start 11/23/18 at 09:00 Fluticasone/ Vilanterol (Breo Ellipta 100-25 Mcg Inh) 1 inh DAILY INH Last administered on 11/30/18 08:06; Admin Dose 1 INH; Start 11/23/18 at 10:00 Nifedipine (Procardia Xl) 60 mg BID PO Last administered on 11/30/18 08:06; Admin Dose 60 MG; Start 11/23/18 at 21:00 Hydralazine HCl (Apresoline) 100 mg TID PO Last administered on 11/30/18 08:06; Admin Dose 100 MG; Start 11/28/18 at 21:00 Carvedilol (Coreg) 12.5 mg BID PO Last administered on 11/30/18 08:06; Admin Dose 12.5 MG; Start 11/28/18 at 21:00 RESHMA JIMÉNEZ Nov 30, 2018 12:42
[2018-11-30] MEDS: METHYLPREDNISOLONE 40 MG INJ IV SCH ×2 (13:18→18:00)
[2018-11-30] MEDS ORDERED: AZITHROMYCIN 250 MG TAB PO SCH (13:30)
[2018-11-30] MEDS: ALBUTEROL/IPRATROPIUM (NEB) 3 ML AMP HHN SCH ×2 (14:41→19:58)
--- NOTE | 2018-11-30 15:55 | PN ---
Date/Time of Note Date/Time of Note DATE: 11/30/18 TIME: 15:53 Assessment/Plan VTE Prophylaxis Risk score (from Nsg)>0 risk: 4 SCD applied (from Nsg): Yes Pharmacological prophylaxis: LMWH Lines/Catheters IV Catheter Type (from Nrsg): Peripheral IV Urinary Cath still in place: No Assessment/Plan Hospital Course Patient gets short of breath with exertion, continue physical therapy. Assessment/Plan -Chest pain, rule out acute coronary syndrome. cardiac enzymes negative x3, stress test is negative for ischemia, continue aspirin, Plavix, nitroglycerin, morphine as needed for pain. Dr. Wren is following in cardiology consultation. -Hypertensive emergency. S/p nitroglycerin gtt. Continue Coreg and Procardia. 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 -Dyslipidemia. -Hypothyroidism, continue levothyroxine -Anemia, multifactorial, iron deficiency anemia and of chronic disease -History of total knee replacement -PVD -Obesity with BMI of 38.1. -Asthma, continue breathing treatment as needed. Further recommendations based on clinical course. Plan of care discussed with Dr. Segovia. Result Diagram: 11/30/18 0539 11/30/18 0539 Results 24hrs Laboratory Tests Test 11/30/18 05:39 11/30/18 12:25 White Blood Count 5.0 Red Blood Count 2.82 L Hemoglobin 8.3 L Hematocrit 27.0 L Mean Corpuscular Volume 95.7 Mean Corpuscular Hemoglobin 29.4 Mean Corpuscular Hemoglobin Concent 30.7 L Red Cell Distribution Width 13.6 Platelet Count 271 Mean Platelet Volume 10.4 Immature Granulocytes % 0.200 Neutrophils % 53.8 Lymphocytes % 29.7 Monocytes % 13.3 H Eosinophils % 2.4 Basophils % 0.6 Nucleated Red Blood Cells % 0.0 Immature Granulocytes # 0.010 Neutrophils # 2.7 Lymphocytes # 1.5 Monocytes # 0.7 Eosinophils # 0.1 Basophils # 0.0 Nucleated Red Blood Cells # 0.0 Sodium Level 139 Potassium Level 4.8 Chloride Level 109 Carbon Dioxide Level 26 Anion Gap 4 L Blood Urea Nitrogen 47 H Creatinine 1.89 H Est Glomerular Filtrat Rate mL/min Glucose Level 91 Calcium Level 8.6 Blood Gas Specimen Source Blood arterial Arterial Blood Date Drawn 11/30/2018 12:45:59 PM Arterial Blood pH (Temp corrected) 7.320 L Arterial Blood pCO2 (Temp correct) 46.2 H Arterial Blood pO2 (Temp corrected) 107.6 H Arterial Blood HCO3 23.3 Arterial Blood Base Excess -2.9 Arterial Blood Oxygen Saturation 97.3 Freddy Test ACCEPTAB Arterial Blood Gas Puncture Site Right Radial Arterial Blood Carboxyhemoglobin 0.3 Arterial Blood Methemoglobin 0.6 Blood Gas A-a O2 Differential 30.3 H Oxyhemoglobin Percent 96.4 Blood Gas Temperature 37.0 Blood Gas Modality NASAL CANNULA FiO2 27.0 Blood Gas Notified Whom TM Blood Gas Notified Time 11/30/2018 1:07:08 PM Exam/Review of Systems Exam Vitals Vital Signs Date Temp Pulse Resp B/P (MAP) Pulse Ox O2 O2 Flow FiO2 Time Delivery Rate 11/30/18 97.8 71 19 126/63 100 Nasal 2.0 15:21 (84) Cannula Exam Constitutional: alert, oriented Respiratory: diminished breath sounds Cardiovascular: regular rate and rhythm Gastrointestinal: soft, non-tender Musculoskeletal: nl extremities to inspection Extremities: edema Neurological: nl mental status Skin: nl turgor Results Results 24hrs Laboratory Tests Test 11/30/18 05:39 11/30/18 12:25 White Blood Count 5.0 Red Blood Count 2.82 L Hemoglobin 8.3 L Hematocrit 27.0 L Mean Corpuscular Volume 95.7 Mean Corpuscular Hemoglobin 29.4 Mean Corpuscular Hemoglobin Concent 30.7 L Red Cell Distribution Width 13.6 Platelet Count 271 Mean Platelet Volume 10.4 Immature Granulocytes % 0.200 Neutrophils % 53.8 Lymphocytes % 29.7 Monocytes % 13.3 H Eosinophils % 2.4 Basophils % 0.6 Nucleated Red Blood Cells % 0.0 Immature Granulocytes # 0.010 Neutrophils # 2.7 Lymphocytes # 1.5 Monocytes # 0.7 Eosinophils # 0.1 Basophils # 0.0 Nucleated Red Blood Cells # 0.0 Sodium Level 139 Potassium Level 4.8 Chloride Level 109 Carbon Dioxide Level 26 Anion Gap 4 L Blood Urea Nitrogen 47 H Creatinine 1.89 H Est Glomerular Filtrat Rate mL/min Glucose Level 91 Calcium Level 8.6 Blood Gas Specimen Source Blood arterial Arterial Blood Date Drawn 11/30/2018 12:45:59 PM Arterial Blood pH (Temp corrected) 7.320 L Arterial Blood pCO2 (Temp correct) 46.2 H Arterial Blood pO2 (Temp corrected) 107.6 H Arterial Blood HCO3 23.3 Arterial Blood Base Excess -2.9 Arterial Blood Oxygen Saturation 97.3 Freddy Test ACCEPTAB Arterial Blood Gas Puncture Site Right Radial Arterial Blood Carboxyhemoglobin 0.3 Arterial Blood Methemoglobin 0.6 Blood Gas A-a O2 Differential 30.3 H Oxyhemoglobin Percent 96.4 Blood Gas Temperature 37.0 Blood Gas Modality NASAL CANNULA FiO2 27.0 Blood Gas Notified Whom TM Blood Gas Notified Time 11/30/2018 1:07:08 PM Medications Medication Current Medications Albuterol (Ventolin Hfa) 2 puff Q4H RESP THERAPY PRN INH WHEEZING AND SOB Last administered on 11/23/18 14:56; Admin Dose 2 PUFF; Start 11/22/18 at 18:30 Atorvastatin Calcium (Lipitor) 10 mg QHS PO Last administered on 11/29/18 21:24; Admin Dose 10 MG; Start 11/22/18 at 21:00 Clopidogrel Bisulfate (plaVIX) 75 mg DAILY PO Last administered on 11/30/18 08:05; Admin Dose 75 MG; Start 11/23/18 at 09:00 Ferrous Sulfate (Ferrous Sulfate (Ec)) 325 mg DAILY PO Last administered on 11/30/18 08:05; Admin Dose 325 MG; Start 11/23/18 at 09:00 Levothyroxine Sodium (Synthroid) 25 mcg BEFORE BREAKFAST PO Last administered on 11/30/18 08:05; Admin Dose 25 MCG; Start 11/23/18 at 07:00 Pantoprazole (Protonix Tab) 40 mg AC BREAKFAST PO Last administered on 08:05; Admin Dose 40 MG; Start 11/23/18 at 07:00 IV Flush (NS 3 ml) 3 ml PER PROTOCOL IV ; Start 11/22/18 at 20:30 Ondansetron HCl (Zofran Inj) 4 mg Q6H PRN IV NAUSEA/VOMITING; Start 11/22/18 at 20:30 Aspirin (Aspirin) 81 mg DAILY PO Last administered on 11/30/18 08:05; Admin Dose 81 MG; Start 11/23/18 at 09:00 Nitroglycerin (Nitroglycerin (Sl Tab) 0.4 Mg) 1 tab Q5M PRN SL .CHEST PAIN; S tart 11/22/18 at 20:30 Acetaminophen (Tylenol Tab) 650 mg Q6H PRN PO .PAIN 1-3 OR TEMP; Start 11/22/18 at 20:30 Acetaminophen/ Hydrocodone Bitart ([place] (5/325)) 1 tab Q6H PRN PO .PAIN 4-6 Last administered on 11/23/18 16:54; Admin Dose 1 TAB; Start 11/22/18 at 20:30 Morphine Sulfate (morphine) 2 mg Q4H PRN IV .PAIN 7-10 Last administered on 11/23/18 14:59; Admin Dose 2 MG; Start 11/22/18 at 20:30 Zolpidem Tartrate (Ambien) 5 mg QHS PRN PO .INSOMNIA Last administered on 11/27/18 23:35; Admin Dose 5 MG; Start 11/22/18 at 20:30 Docusate Sodium (Colace) 100 mg Q12H PRN PO .CONSTIPATION; Start 11/22/18 at 20:30 Magnesium Hydroxide (Milk Of Mag) 30 ml DAILY PRN PO .CONSTIPATION; Start 04/02 at 20:30 Famotidine (Pepcid) 20 mg Q24H PO Last administered on 11/29/18 21:26; Admin Dose 20 MG; Start 11/22/18 at 21:00 Multivit/Ca Carb/ B Cmplx/FA/Prenat (Wen-Justo) 1 tab DAILY PO Last a dministered on 11/30/18 08:05; Admin Dose 1 TAB; Start 11/23/18 at 09:00 Isosorbide Dinitrate (Isordil) 40 mg TID PO Last administered on 11/30/18 08:07; Admin Dose 40 MG; Start 11/23/18 at 09:00 Fluticasone/ Vilanterol (Breo Ellipta 100-25 Mcg Inh) 1 inh DAILY INH Last administered on 11/30/18 08:06; Admin Dose 1 INH; Start 11/23/18 at 10:00 Nifedipine (Procardia Xl) 60 mg BID PO Last administered on 11/30/18 08:06; Admin Dose 60 MG; Start 11/23/18 at 21:00 Hydralazine HCl (Apresoline) 100 mg TID PO Last administered on 11/30/18 08:06; Admin Dose 100 MG; Start 11/28/18 at 21:00 Carvedilol (Coreg) 12.5 mg BID PO Last administered on 11/30/18 08:06; Admin Dose 12.5 MG; Start 11/28/18 at 21:00 Methylprednisolone Sodium Succinate (Solu-Medrol) 40 mg Q6 IV Last administered on 11/30/18 13:18; Admin Dose 40 MG; Start 11/30/18 at 13:00 Albuterol/ Ipratropium (Duoneb) 3 ml Q6H RESP THERAPY HHN Last administered on 11/30/18 14:41; Admin Dose 3 ML; Start 11/30/18 at 14:00 Azithromycin (Zithromax) 500 mg ONCE PO Last administered on 11/30/18 13:17; Admin Dose 500 MG; Start 11/30/18 at 13:30; Stop 11/30/18 at 23:00 Azithromycin (Zithromax) 250 mg DAILY PO ; Start 12/01/18 at 09:00; Stop 12/04/18 at 09:01 TRICE ZAMORA Nov 30, 2018 15:55
[2018-11-30] MEDS: ATORVASTATIN 10 MG TAB PO SCH (20:56)
[2018-11-30] MEDS: FAMOTIDINE 20 MG TAB PO SCH (20:56)
[2018-12-01] VITALS (10 sets, daily range): BP systolic 130–156; BP diastolic 63–74; PULSE 70–86; RESP 16–19
[2018-12-01] MEDS: ALBUTEROL/IPRATROPIUM (NEB) 3 ML AMP HHN SCH ×4 (01:39→20:17)
[2018-12-01] MEDS: LEVOTHYROXINE 25 MCG TAB PO SCH (06:14)
[2018-12-01] MEDS: METHYLPREDNISOLONE 40 MG INJ IV SCH ×4 (06:14→18:51)
[2018-12-01] MEDS: PANTOPRAZOLE (EC) 40 MG TAB PO SCH (06:14)
[2018-12-01] MEDS: ISOSORBIDE DINITRATE 20 MG TAB PO SCH ×3 (08:21→21:31)
[2018-12-01] MEDS: NIFEdipine (XL) 60 MG TAB PO SCH ×2 (08:22→21:31)
[2018-12-01] MEDS: MULTIVIT/CA CARB/B CMPLX/FA TAB PO SCH (08:27)
[2018-12-01] MEDS: AZITHROMYCIN 250 MG TAB PO SCH (08:28)
[2018-12-01] MEDS: FERROUS SULFATE (EC) 325 MG TAB PO SCH (08:28)
[2018-12-01] MEDS: ASPIRIN 81 MG TAB PO SCH (08:28)
[2018-12-01] MEDS: CLOPIDOGREL 75 MG TAB PO SCH (08:28)
[2018-12-01] MEDS: FLUTICASONE/VILANTEROL 100-25 INH SCH (09:00)
--- NOTE | 2018-12-01 09:54 | CONS ---
Assessment/Plan Assessment/Plan Assessment/Plan (Daily) Assessment and recommendations; 1. Patient admitted with nonspecific left-sided chest pain likely from severe coughing with marked overall interval improvement. 2. Acute bronchitis with asthma exacerbation with significant interval improvement once initiated on scheduled DuoNeb, Solu-Medrol and Zithromax orally. 3. Other comorbidities include history of hypertension, chronic renal insufficiency, anemia, peripheral vascular disease and hypothyroidism. Continue current supportive care. Steroid taper in 24 hours. Consultation Date/Type/Reason Admit Date/Time Nov 22, 2018 at 14:27 Initial Consult Date 11/30/18 Type of Consult Pulmonary Patient is a pleasant 72-year-old lady who came into the hospital on the of this month with a few days history of coughing wheezing shortness of breath and chest pain associated with coughing. Patient has undergone stress test which has been negative. By the time I saw her, patient was having several bouts of coughing and appeared very congested. Patient denies any further chest pain. Any fever, chills, any body aches or myalgias. Past medical history; 1. History of asthma. 2. Hypertension 3. Peripheral vascular disease. 4. Chronic renal insufficiency. 5. History of knee replacement. 6. Chronic anemia. 7. Hypothyroidism. Medications; reviewed. Allergies; none. Social history; noncontributory. Family history; noncontributory. Occupational history; patient has been a housewife. Review of systems; denies any headache, sinus symptoms. Any seizures. Any sore throat, dysphagia denies any further chest pain. Complains of chest congestion, coughing, wheezing, shortness of breath. Denies any abdominal pain, nausea or vomiting. Any edema. Orthopnea. Any melena or hematochezia. General exam; elderly woman, sitting in a chair by bedside. Several bouts of severe coughing were observed. Requesting Provider: YOSHI GARG MD Date/Time of Note DATE: 12/01/18 TIME: 09:52 24 HR Interval Summary Free Text/Dictation Patient's condition is markedly improved over the last 24 hours. There is almost complete resolution of cough, shortness of breath, and wheezing. General exam; elderly woman, awake alert, currently in no distress. Exam/Review of Systems Exam Vitals Vital Signs Date Temp Pulse Resp B/P (MAP) Pulse Ox O2 O2 Flow FiO2 Time Delivery Rate 12/01/18 70 08:09 12/01/18 97.9 18 156/74 98 Nasal 2.0 08:00 (101) Cannula Intake and Output 11/30/18 11/30/18 12/01/18 1515:00 23:00 07:00 IntakeIntake Total 1500 ml BalanceBalance 1500 ml Exam H ENT exam; supple neck, no JVD. No lymphadenopathy. Midline trachea. No thyromegaly. Patient does have multiple carious teeth. Chest exam; clear to auscultation. S1-S2 audible, no murmurs. Regular rhythm. Abdomen exam; soft, nontender. No organomegaly. Bowel sounds audible. Extremity exam; no peripheral edema clubbing. CORNER FORMER exam; no focal deficit. Results Result Diagram: 11/30/18 0539 11/30/18 0539 Results 24hrs Laboratory Tests Test 11/30/18 12:25 Blood Gas Specimen Source Blood arterial Arterial Blood Date Drawn 11/30/2018 12:45:59 PM Arterial Blood pH (Temp corrected) 7.320 L Arterial Blood pCO2 (Temp correct) 46.2 H Arterial Blood pO2 (Temp corrected) 107.6 H Arterial Blood HCO3 23.3 Arterial Blood Base Excess -2.9 Arterial Blood Oxygen Saturation 97.3 Freddy Test ACCEPTAB Arterial Blood Gas Puncture Site Right Radial Arterial Blood Carboxyhemoglobin 0.3 Arterial Blood Methemoglobin 0.6 Blood Gas A-a O2 Differential 30.3 H Oxyhemoglobin Percent 96.4 Blood Gas Temperature 37.0 Blood Gas Modality NASAL CANNULA FiO2 27.0 Blood Gas Notified Whom TM Blood Gas Notified Time 11/30/2018 1:07:08 PM Medications Medication Current Medications Albuterol (Ventolin Hfa) 2 puff Q4H RESP THERAPY PRN INH WHEEZING AND SOB Last administered on 11/23/18at 14:56; Admin Dose 2 PUFF; Start 11/22/18 at 18:30 Atorvastatin Calcium (Lipitor) 10 mg QHS PO Last administered on 11/30/18at 2 0:56; Admin Dose 10 MG; Start 11/22/18 at 21:00 Clopidogrel Bisulfate (plaVIX) 75 mg DAILY PO Last administered on 12/01/18at 08:28; Admin Dose 75 MG; Start 11/23/18 at 09:00 Ferrous Sulfate (Ferrous Sulfate (Ec)) 325 mg DAILY PO Last administered on 12/01/18 08:28; Admin Dose 325 MG; Start 11/23/18 at 09:00 Levothyroxine Sodium (Synthroid) 25 mcg BEFORE BREAKFAST PO Last administered on 12/01/18 06:14; Admin Dose 25 MCG; Start 11/23/18 at 07:00 Pantoprazole (Protonix Tab) 40 mg AC BREAKFAST PO Last administered on 12/01/18 06:14; Admin Dose 40 MG; Start 11/23/18 at 07:00 IV Flush (NS 3 ml) 3 ml PER PROTOCOL IV ; Start 11/22/18 at 20:30 Ondansetron HCl (Zofran Inj) 4 mg Q6H PRN IV NAUSEA/VOMITING; Start 11/22/18 at 20:30 Aspirin (Aspirin) 81 mg DAILY PO Last administered on 12/01/18 08:28; Admin Dose 81 MG; Start 11/23/18 at 09:00 Nitroglycerin (Nitroglycerin (Sl Tab) 0.4 Mg) 1 tab Q5M PRN SL .CHEST PAIN; Start 11/22/18 at 20:30 Acetaminophen (Tylenol Tab) 650 mg Q6H PRN PO .PAIN 1-3 OR TEMP; Start 11/22/18 at 20:30 Acetaminophen/ Hydrocodone Bitart ([place] (5/325)) 1 tab Q6H PRN PO .PAIN 4-6 Last administered on 11/23/18 16:54; Admin Dose 1 TAB; Start 11/22/18 at 20:30 Morphine Sulfate (morphine) 2 mg Q4H PRN IV .PAIN 7-10 Last administered on 11/23/18at 14:59; Admin Dose 2 MG; Start 11/22/18 at 20:30 Zolpidem Tartrate (Ambien) 5 mg QHS PRN PO .INSOMNIA Last administered on 11/27/18 23:35; Admin Dose 5 MG; Start 11/22/18 at 20:30 Docusate Sodium (Colace) 100 mg Q12H PRN PO .CONSTIPATION; Start 11/22/18 at 20:30 Magnesium Hydroxide (Milk Of Mag) 30 ml DAILY PRN PO .CONSTIPATION; Start 11/22/18 at 20:30 Famotidine (Pepcid) 20 mg Q24H PO Last administered on 11/30/18 20:56; Admin Dose 20 MG; Start 11/22/18 at 21:00 Multivit/Ca Carb/ B Cmplx/FA/Prenat (Wen-Justo) 1 tab DAILY PO Last administered on 12/01/18 08:27; Admin Dose 1 TAB; Start 11/23/18 at 09:00 Isosorbide Dinitrate (Isordil) 40 mg TID PO Last administered on 12/01/18 08:21; Admin Dose 40 MG; Start 11/23/18 at 09:00 Fluticasone/ Vilanterol (Breo Ellipta 100-25 Mcg Inh) 1 inh DAILY INH Last administered on 11/30/18 08:06; Admin Dose 1 INH; Start 11/23/18 at 10:00 Nifedipine (Procardia Xl) 60 mg BID PO Last administered on 12/01/18 08:22; Admin Dose 60 MG; Start 11/23/18 at 21:00 Hydralazine HCl (Apresoline) 100 mg TID PO Last administered on 12/01/18 08:28; Admin Dose 100 MG; Start 11/28/18 at 21:00 Carvedilol (Coreg) 12.5 mg BID PO Last administered on 12/01/18 08:27; Admin Dose 12.5 MG; Start 11/28/18 at 21:00 Methylprednisolone Sodium Succinate (Solu-Medrol) 40 mg Q6 IV Last administered on 12/01/18 06:14; Admin Dose 40 MG; Start 11/30/18 at 13:00 Albuterol/ Ipratropium (Duoneb) 3 ml Q6H RESP THERAPY HHN Last administered on 12/01/18 08:59; Admin Dose 3 ML; Start 11/30/18 at 14:00 Azithromycin (Zithromax) 250 mg DAILY PO Last administered on 12/01/18 08:28; Admin Dose 250 MG; Start 12/01/18 at 09:00; Stop 12/04/18 at 09:01 RESHMA JIMÉNEZ 19, 2019 09:54
--- NOTE | 2018-12-01 13:30 | CONS ---
Assessment/Plan Assessment/Plan Hospital Course (Demo Recall) IMp: 1.chest pain-neg trop x 3/NL EF by echo 07/03. NO ischemia by stress and normal EF 2.HTN-improved on current regimen 3.renal failure-acute on chronic 4.HYpothyroid 5. PAD Recc: -Tele -Contineu procardia/coreg/hydralazine/isordil with well controlled BP -Contineu asa/plavix -Now off lasix due to rising creatnine which is slowly trending -now started on steroids and bronchodilators/followed by pulmonary Consultation Date/Type/Reason Admit Date/Time Nov 22, 2018 at 14:27 Initial Consult Date 11/23/18 Type of Consult Cardiology Reason for Consultation chest pain Requesting Provider: YOSHI GARG MD Date/Time of Note DATE: 12/01/18 TIME: 13:26 Exam/Review of Systems Vital Signs Vitals Vital Signs Date Temp Pulse Resp B/P (MAP) Pulse Ox O2 O2 Flow FiO2 Time Delivery Rate 12/01/18 78 12:04 12/01/18 98.1 18 140/65 97 Nasal 2.0 11:39 (90) Cannula Intake and Output 11/30/18 11/30/18 12/01/18 1515:00 23:00 07:00 IntakeIntake Total 1500 ml BalanceBalance 1500 ml Exam Exam Review of Systems: CONSTITUTIONAL: No fevers, chills. PULMONARY: No sob CARDIOVASCULAR: No chest pain/palpitations GASTROINTESTINAL: No nausea/vomiting. GENITOURINARY: No hematuria/dysuria. MUSCULOSKELETAL: No myagias/arthalgias. PSYCHIATRIC: The patient denies depression. NEUROLOGIC: No weakness Constitutional: alert Psych: no complaints Head: normocephalic ENMT: mucosa pink and moist Neck: supple, jvd (9 cm water) Respiratory: diminished breath sounds (at bases/B) Cardiovascular: regular rate and rhythm Gastrointestinal: soft, non-tender Musculoskeletal: muscle tone (normal) Extremities: edema (none) Neurological: other (No focal deficits) Labs Result Diagram: 11/30/18 0539 11/30/18 0539 Medications Medications Current Medications Albuterol (Ventolin Hfa) 2 puff Q4H RESP THERAPY PRN INH WHEEZING AND SOB Last administered on 11/23/18at 14:56; Admin Dose 2 PUFF; Start 11/22/18 at 18:30 Atorvastatin Calcium (Lipitor) 10 mg QHS PO Last administered on 11/30/18 20:56; Admin Dose 10 MG; Start 11/22/18 at 21:00 Clopidogrel Bisulfate (plaVIX) 75 mg DAILY PO Last administered on 12/01/18 08:28; Admin Dose 75 MG; Start 11/23/18 at 09:00 Ferrous Sulfate (Ferrous Sulfate (Ec)) 325 mg DAILY PO Last administered on 12/01/18 08:28; Admin Dose 325 MG; Start 11/23/18 at 09:00 Levothyroxine Sodium (Synthroid) 25 mcg BEFORE BREAKFAST PO Last administered on 12/01/18 06:14; Admin Dose 25 MCG; Start 11/23/18 at 07:00 Pantoprazole (Protonix Tab) 40 mg AC BREAKFAST PO Last administered on 12/01/18 06:14; Admin Dose 40 MG; Start 11/23/18 at 07:00 IV Flush (NS 3 ml) 3 ml PER PROTOCOL IV ; Start 11/22/18 at 20:30 Ondansetron HCl (Zofran Inj) 4 mg Q6H PRN IV NAUSEA/VOMITING; Start 11/22/18 at 20:30 Aspirin (Aspirin) 81 mg DAILY PO Last administered on 12/01/18 08:28; Admin Dose 81 MG; Start 11/23/18 at 09:00 Nitroglycerin (Nitroglycerin (Sl Tab) 0.4 Mg) 1 tab Q5M PRN SL .CHEST PAIN; Start 11/22/18 at 20:30 Acetaminophen (Tylenol Tab) 650 mg Q6H PRN PO .PAIN 1-3 OR TEMP; Start 11/22/18 at 20:30 Acetaminophen/ Hydrocodone Bitart ([place] (5/325)) 1 tab Q6H PRN PO .PAIN 4-6 Last administered on 11/23/18 16:54; Admin Dose 1 TAB; Start 11/22/18 at 20:30 Morphine Sulfate (morphine) 2 mg Q4H PRN IV .PAIN 7-10 Last administered on 11/23/18 14:59; Admin Dose 2 MG; Start 11/22/18 at 20:30 Zolpidem Tartrate (Ambien) 5 mg QHS PRN PO .INSOMNIA Last administered on 11/27/18 23:35; Admin Dose 5 MG; Start 11/22/18 at 20:30 Docusate Sodium (Colace) 100 mg Q12H PRN PO .CONSTIPATION; Start 11/22/18 at 20:30 Magnesium Hydroxide (Milk Of Mag) 30 ml DAILY PRN PO .CONSTIPATION; Start 11/22/18 at 20:30 Famotidine (Pepcid) 20 mg Q24H PO Last administered on 11/30/18 20:56; Admin Dose 20 MG; Start 11/22/18 at 21:00 Multivit/Ca Carb/ B Cmplx/FA/Prenat (Wen-Justo) 1 tab DAILY PO Last administered on 12/01/18 08:27; Admin Dose 1 TAB; Start 11/23/18 at 09:00 Isosorbide Dinitrate (Isordil) 40 mg TID PO Last administered on 12/01/18 13:06; Admin Dose 40 MG; Start 11/23/18 at 09:00 Fluticasone/ Vilanterol (Breo Ellipta 100-25 Mcg Inh) 1 inh DAILY INH Last administered on 11/30/18 08:06; Admin Dose 1 INH; Start 11/23/18 at 10:00 Nifedipine (Procardia Xl) 60 mg BID PO Last administered on 12/01/18 08:22; Admin Dose 60 MG; Start 11/23/18 at 21:00 Hydralazine HCl (Apresoline) 100 mg TID PO Last administered on 12/01/18 13:06; Admin Dose 100 MG; Start 11/28/18 at 21:00 Carvedilol (Coreg) 12.5 mg BID PO Last administered on 12/01/18 08:27; Admin Dose 12.5 MG; Start 11/28/18 at 21:00 Methylprednisolone Sodium Succinate (Solu-Medrol) 40 mg Q6 IV Last administered on 12/01/18 13:06; Admin Dose 40 MG; Start 11/30/18 at 13:00 Albuterol/ Ipratropium (Duoneb) 3 ml Q6H RESP THERAPY HHN Last administered on 12/01/18 08:59; Admin Dose 3 ML; Start 11/30/18 at 14:00 Azithromycin (Zithromax) 250 mg DAILY PO Last administered on 12/01/18at 08:28; Admin Dose 250 MG; Start 12/01/18 at 09:00; Stop 12/04/18 at 09:01 KERMIT DONOHUE Dec 01, 2018 13:30
--- NOTE | 2018-12-01 15:03 | CONS ---
Assessment/Plan Assessment/Plan Assessment/Plan (Daily) - Shortness of breath - pulmonary follows - CXR-showed Calcified atherosclerosis in the aorta; Mild central pulmonary vascular congestion and interstitial prominence in both lungs; Scattered atelectasis in both lungs. - Respiratory acidosis 1. acute Kidney injury on CKD III due to hemodynamics and prerenal azotemia 2. 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 H/o HL 6. H/o Hypothyroidism 7. H/o PAD Plan: creatinine trended down - Lasix dcd Procardia Xl for HTN control pt previously had a full CKD work up - no need ot repeat it will continue to follow up Patient seen in collaboration with dr Enedelia Rivera Consultation Date/Type/Reason Admit Date/Time Nov 22, 2018 at 2:27 pm Initial Consult Date 11/26/18 c/o shortness of breath while ambulating BUN/ Cr - 47/1.89 as of yesterday; no labs today sitting up in bed- feels better no new events reported last night dw staff Consultation Date/Type/Reason Admit Date/Time Nov 22, 2018 at 14:27 Initial Consult Date 11/26/18 Type of Consult nephrology Reason for Consultation OLGA Requesting Provider: YOSHI GARG MD Date/Time of Note DATE: 12/01/18 TIME: 15:03 24 HR Interval Summary Constitutional: requiring O2 Exam/Review of Systems Exam Vitals Vital Signs Date Temp Pulse Resp B/P (MAP) Pulse Ox O2 O2 Flow FiO2 Time Delivery Rate 12/01/18 78 12:04 12/01/18 98.1 18 140/65 97 Nasal 2.0 11:39 (90) Cannula Intake and Output 11/30/18 11/30/18 12/01/18 1515:00 23:00 07:00 IntakeIntake Total 1500 ml BalanceBalance 1500 ml Constitutional: alert, well developed, obese Psych: nl mood/affect Eyes: nl lids, nl sclera ENMT: nl external ears & nose Neck: non-tender Respiratory: diminished breath sounds Cardiovascular: nl pulses Gastrointestinal: soft, non-tender Musculoskeletal: nl extremities to inspection Extremities: normal pulses Neurological: nl speech Lymph: nontender Results Result Diagram: 11/30/1839 6/18/19 0539 Medications Medication Current Medications Albuterol (Ventolin Hfa) 2 puff Q4H RESP THERAPY PRN INH WHEEZING AND SOB Last administered on 11/23/18 14:56; Admin Dose 2 PUFF; Start 11/22/18 at 18:30 Atorvastatin Calcium (Lipitor) 10 mg QHS PO Last administered on 11/30/18 20:56; Admin Dose 10 MG; Start 11/22/18 at 21:00 Clopidogrel Bisulfate (plaVIX) 75 mg DAILY PO Last administered on 12/01/18 08:28; Admin Dose 75 MG; Start 11/23/18 at 09:00 Ferrous Sulfate (Ferrous Sulfate (Ec)) 325 mg DAILY PO Last administered on 11/13 08:28; Admin Dose 325 MG; Start 11/23/18 at 09:00 Levothyroxine Sodium (Synthroid) 25 mcg BEFORE BREAKFAST PO Last administered on 12/01/18 06:14; Admin Dose 25 MCG; Start 11/23/18 at 07:00 Pantoprazole (Protonix Tab) 40 mg AC BREAKFAST PO Last administered on 12/01/18 06:14; Admin Dose 40 MG; Start 11/23/18 at 07:00 IV Flush (NS 3 ml) 3 ml PER PROTOCOL IV ; Start 11/22/18 at 20:30 Ondansetron HCl (Zofran Inj) 4 mg Q6H PRN IV NAUSEA/VOMITING; Start 11/22/18 at 20:30 Aspirin (Aspirin) 81 mg DAILY PO Last administered on 12/01/18 08:28; Admin Dose 81 MG; Start 11/23/18 at 09:00 Nitroglycerin (Nitroglycerin (Sl Tab) 0.4 Mg) 1 tab Q5M PRN SL .CHEST PAIN; Start 11/22/18 at 20:30 Acetaminophen (Tylenol Tab) 650 mg Q6H PRN PO .PAIN 1-3 OR TEMP; Start 11/22/18 at 20:30 Acetaminophen/ Hydrocodone Bitart ([place] (5/325)) 1 tab Q6H PRN PO .PAIN 4-6 Last administered on 11/23/18 16:54; Admin Dose 1 TAB; Start 11/22/18 at 20:30 Morphine Sulfate (morphine) 2 mg Q4H PRN IV .PAIN 7-10 Last administered on 11/23/18 14:59; Admin Dose 2 MG; Start 11/22/18 at 20:30 Zolpidem Tartrate (Ambien) 5 mg QHS PRN PO .INSOMNIA Last administered on 11/27/18 23:35; Admin Dose 5 MG; Start 11/22/18 at 20:30 Docusate Sodium (Colace) 100 mg Q12H PRN PO .CONSTIPATION; Start 11/22/18 at 20:30 Magnesium Hydroxide (Milk Of Mag) 30 ml DAILY PRN PO .CONSTIPATION; Start 11/22/18 at 20:30 Famotidine (Pepcid) 20 mg Q24H PO Last administered on 11/30/18 20:56; Admin Dose 20 MG; Start 11/22/18 at 21:00 Multivit/Ca Carb/ B Cmplx/FA/Prenat (Wen-Justo) 1 tab DAILY PO Last administered on 12/01/18 08:27; Admin Dose 1 TAB; Start 11/23/18 at 09:00 Isosorbide Dinitrate (Isordil) 40 mg TID PO Last administered on 12/01/18 13:06; Admin Dose 40 MG; Start 11/23/18 at 09:00 Fluticasone/ Vilanterol (Breo Ellipta 100-25 Mcg Inh) 1 inh DAILY INH Last administered on 11/30/18 08:06; Admin Dose 1 INH; Start 11/23/18 at 10:00 Nifedipine (Procardia Xl) 60 mg BID PO Last administered on 12/01/18 08:22; Admin Dose 60 MG; Start 11/23/18 at 21:00 Hydralazine HCl (Apresoline) 100 mg TID PO Last administered on 12/01/18 13:06; Admin Dose 100 MG; Start 11/28/18 at 21:00 Carvedilol (Coreg) 12.5 mg BID PO Last administered on 12/01/18 08:27; Admin Dose 12.5 MG; Start 11/28/18 at 21:00 Methylprednisolone Sodium Succinate (Solu-Medrol) 40 mg Q6 IV Last administered on 12/01/18 13:06; Admin Dose 40 MG; Start 11/30/18 at 13:00 Albuterol/ Ipratropium (Duoneb) 3 ml Q6H RESP THERAPY HHN Last administered on 12/01/18at 14:28; Admin Dose 3 ML; Start 11/30/18 at 14:00 Azithromycin (Zithromax) 250 mg DAILY PO Last administered on 12/01/18at 08:28; Admin Dose 250 MG; Start 12/01/18 at 09:00; Stop 12/04/18 at 09:01 AMANDA DORSEY Dec 01, 2018 15:03
--- NOTE | 2018-12-01 15:03 | CONS ---
Assessment/Plan Assessment/Plan Assessment/Plan (Daily) - Shortness of breath - pulmonary consult recommended - stat CXR - stat ABGs 1. acute Kidney injury on CKD III due to hemodynamics and prerenal azotemia 2. 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 H/o HL 6. H/o Hypothyroidism 7. H/o PAD Plan: creatinine trended down - Lasix dcd Procardia Xl for HTN control pt previously had a full CKD work up - no need ot repeat it will continue to follow up Patient seen in collaboration with dr Enedelia Rivera Consultation Date/Type/Reason Admit Date/Time Nov 22, 2018 at 2:27 pm Initial Consult Date 11/26/18 Type of Consult nephrology Reason for Consultation OLGA Requesting Provider: YOSHI GARG MD Date/Time of Note DATE: 12/01/18 TIME: 15:02 24 HR Interval Summary Free Text/Dictation c/o shortness of breath while ambulating BUN/ Cr - 47/1.89 today sitting up in bed- feels better no new events reported last night dw staff Constitutional: requiring O2 Detailed Summary Eyes: no complaints ENT: no complaints Respiratory: shortness of breath Cardiovascular: no complaints Gastrointestinal: no complaints Genitourinary: no complaints Musculoskeletal: no complaints Skin: no complaints Neurologic: no complaints Psychological: nl mood/affect Exam/Review of Systems Exam Vitals Vital Signs Date Temp Pulse Resp B/P (MAP) Pulse Ox O2 O2 Flow FiO2 Time Delivery Rate 12/01/18 78 12:04 12/01/18 98.1 18 140/65 97 Nasal 2.0 11:39 (90) Cannula Intake and Output 11/30/18 11/30/18 12/01/18 1515:00 23:00 07:00 IntakeIntake Total 1500 ml BalanceBalance 1500 ml Constitutional: alert, well developed, obese Psych: nl mood/affect Eyes: nl lids, nl sclera ENMT: nl external ears & nose Neck: non-tender Respiratory: diminished breath sounds Cardiovascular: nl pulses, other (s1s2) Gastrointestinal: soft, non-tender Musculoskeletal: nl extremities to inspection Extremities: normal pulses Neurological: nl speech, other (alert/reponsive) Lymph: nontender Results Result Diagram: 11/30/18 05 11/30/18538 Medications Medication Current Medications Albuterol (Ventolin Hfa) 2 puff Q4H RESP THERAPY PRN INH WHEEZING AND SOB Last administered on 11/23/18 14:56; Admin Dose 2 PUFF; Start 11/22/18 at 18:30 Atorvastatin Calcium (Lipitor) 10 mg QHS PO Last administered on 11/30/18 20:56; Admin Dose 10 MG; Start 11/22/18 at 21:00 Clopidogrel Bisulfate (plaVIX) 75 mg DAILY PO Last administered on 12/01/18 08:28; Admin Dose 75 MG; Start 11/23/18 at 09:00 Ferrous Sulfate (Ferrous Sulfate (Ec)) 325 mg DAILY PO Last administered on 12/01/18 08:28; Admin Dose 325 MG; Start 11/23/18 at 09:00 Levothyroxine Sodium (Synthroid) 25 mcg BEFORE BREAKFAST PO Last administered on 12/01/18 06:14; Admin Dose 25 MCG; Start 11/23/18 at 07:00 Pantoprazole (Protonix Tab) 40 mg AC BREAKFAST PO Last administered on 12/01/18 06:14; Admin Dose 40 MG; Start 11/23/18 at 07:00 IV Flush (NS 3 ml) 3 ml PER PROTOCOL IV ; Start 11/22/18 at 20:30 Ondansetron HCl (Zofran Inj) 4 mg Q6H PRN IV NAUSEA/VOMITING; Start 11/22/18 at 20:30 Aspirin (Aspirin) 81 mg DAILY PO Last administered on 12/01/18 08:28; Admin Dose 81 MG; Start 11/23/18 at 09:00 Nitroglycerin (Nitroglycerin (Sl Tab) 0.4 Mg) 1 tab Q5M PRN SL .CHEST PAIN; Start 11/22/18 at 20:30 Acetaminophen (Tylenol Tab) 650 mg Q6H PRN PO .PAIN 1-3 OR TEMP; Start 11/22/18 at 20:30 Acetaminophen/ Hydrocodone Bitart ([place] (5/325)) 1 tab Q6H PRN PO .PAIN 4-6 Last administered on 11/23/18at 16:54; Admin Dose 1 TAB; Start 11/22/18 at 20:30 Morphine Sulfate (morphine) 2 mg Q4H PRN IV .PAIN 7-10 Last administered on 11/23/18 14:59; Admin Dose 2 MG; Start 11/22/18 at 20:30 Zolpidem Tartrate (Ambien) 5 mg QHS PRN PO .INSOMNIA Last administered on 11/27 23:35; Admin Dose 5 MG; Start 11/22/18 at 20:30 Docusate Sodium (Colace) 100 mg Q12H PRN PO .CONSTIPATION; Start 11/22/18 at 20:30 Magnesium Hydroxide (Milk Of Mag) 30 ml DAILY PRN PO .CONSTIPATION; Start 11/22/18 at 20:30 Famotidine (Pepcid) 20 mg Q24H PO Last administered on 11/30/18 20:56; Admin Dose 20 MG; Start 11/22/18 at 21:00 Multivit/Ca Carb/ B Cmplx/FA/Prenat (Wen-Justo) 1 tab DAILY PO Last administered on 12/01/18 08:27; Admin Dose 1 TAB; Start 11/23/18 at 09:00 Isosorbide Dinitrate (Isordil) 40 mg TID PO Last administered on 12/01/18 13:06; Admin Dose 40 MG; Start 11/23/18 at 09:00 Fluticasone/ Vilanterol (Breo Ellipta 100-25 Mcg Inh) 1 inh DAILY INH Last administered on 11/30/18 08:06; Admin Dose 1 INH; Start 11/23/18 at 10:00 Nifedipine (Procardia Xl) 60 mg BID PO Last administered on 12/01/18 08:22; Admin Dose 60 MG; Start 11/23/18 at 21:00 Hydralazine HCl (Apresoline) 100 mg TID PO Last administered on 12/01/18 13:06; Admin Dose 100 MG; Start 11/28/18 at 21:00 Carvedilol (Coreg) 12.5 mg BID PO Last administered on 12/01/18 08:27; Admin Dose 12.5 MG; Start 11/28/18 at 21:00 Methylprednisolone Sodium Succinate (Solu-Medrol) 40 mg Q6 IV Last administered on 12/01/18 13:06; Admin Dose 40 MG; Start 11/30/18 at 13:00 Albuterol/ Ipratropium (Duoneb) 3 ml Q6H RESP THERAPY HHN Last administered on 12/01/18at 14:28; Admin Dose 3 ML; Start 11/30/18 at 14:00 Azithromycin (Zithromax) 250 mg DAILY PO Last administered on 12/01/18at 08:28; Admin Dose 250 MG; Start 12/01/18 at 09:00; Stop 12/04/18 at 09:01 AMANDA DORSEY Dec 01, 2018 15:03
--- NOTE | 2018-12-01 15:13 | PN ---
Date/Time of Note Date/Time of Note DATE: 12/01/18 TIME: 15:08 Assessment/Plan VTE Prophylaxis Risk score (from Nsg)>0 risk: 4 SCD applied (from Nsg): Yes Pharmacological prophylaxis: other Lines/Catheters IV Catheter Type (from Nrsg): Peripheral IV Urinary Cath still in place: No Assessment/Plan Hospital Course Patient is currently on IV Solu-Medrol for acute bronchitis with asthma exacerbation. Continue oxygen supplementation, continue on physical therapy. Plan of care discussed with RN and case management. Assessment/Plan -Acute bronchitis with asthma exacerbation, Dr. Chun is following in pulmonology consultation. Continue DuoNeb, Solu-Medrol, and Zithromax. -Chest pain, rule out acute coronary syndrome. cardiac enzymes negative x3, stress test is negative for ischemia, continue aspirin, Plavix, nitroglycerin, morphine as needed for pain. Dr. Wren is following in cardiology consultation. -S/p hypertensive emergency. S/p nitroglycerin gtt. Continue Coreg and Procardia. -Congestive heart failure, Lasix is held by a physiotherapy aide. 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 -Dyslipidemia. -Hypothyroidism, continue levothyroxine -Anemia, multifactorial, iron deficiency anemia and of chronic disease -History of total knee replacement -PVD -Obesity with BMI of 38.1. Further recommendations based on clinical course. Plan of care discussed with Dr. Segovia. Result Diagram: 11/30/1839 11/30/18538 Exam/Review of Systems Exam Vitals Vital Signs Date Temp Pulse Resp B/P (MAP) Pulse Ox O2 O2 Flow FiO2 Time Delivery Rate 12/01/18 78 12:04 12/01/18 98.1 18 140/65 97 Nasal 2.0 11:39 (90) Cannula Intake and Output 11/30/18 11/30/18 12/01/18 1515:00 23:00 07:00 IntakeIntake Total 1500 ml BalanceBalance 1500 ml Exam Constitutional: alert, oriented Respiratory: diminished breath sounds Cardiovascular: regular rate and rhythm Gastrointestinal: soft, non-tender Musculoskeletal: nl extremities to inspection Extremities: edema Neurological: nl mental status Skin: nl turgor Medications Medication Current Medications Albuterol (Ventolin Hfa) 2 puff Q4H RESP THERAPY PRN INH WHEEZING AND SOB Last administered on 11/23/18 14:56; Admin Dose 2 PUFF; Start 11/22/18 at 18:30 Atorvastatin Calcium (Lipitor) 10 mg QHS PO Last administered on 11/30/18 20:56; Admin Dose 10 MG; Start 11/22/18 at 21:00 Clopidogrel Bisulfate (plaVIX) 75 mg DAILY PO Last administered on 12/01/18 08:28; Admin Dose 75 MG; Start 11/23/18 at 09:00 Ferrous Sulfate (Ferrous Sulfate (Ec)) 325 mg DAILY PO Last administered on 12/01/18 08:28; Admin Dose 325 MG; Start 11/23/18 at 09:00 Levothyroxine Sodium (Synthroid) 25 mcg BEFORE BREAKFAST PO Last administered on 12/01/18 06:14; Admin Dose 25 MCG; Start 11/23/18 at 07:00 Pantoprazole (Protonix Tab) 40 mg AC BREAKFAST PO Last administered on 12/01/18 06:14; Admin Dose 40 MG; Start 11/23/18 at 07:00 IV Flush (NS 3 ml) 3 ml PER PROTOCOL IV ; Start 11/22/18 at 20:30 Ondansetron HCl (Zofran Inj) 4 mg Q6H PRN IV NAUSEA/VOMITING; Start 11/22/18 at 20:30 Aspirin (Aspirin) 81 mg DAILY PO Last administered on 12/01/18 08:28; Admin Dose 81 MG; Start 11/23/18 at 09:00 Nitroglycerin (Nitroglycerin (Sl Tab) 0.4 Mg) 1 tab Q5M PRN SL .CHEST PAIN; Start 11/22/18 at 20:30 Acetaminophen (Tylenol Tab) 650 mg Q6H PRN PO .PAIN 1-3 OR TEMP; Start 11/22/18 at 20:30 Acetaminophen/ Hydrocodone Bitart ([place] (5/325)) 1 tab Q6H PRN PO .PAIN 4-6 Last administered on 11/23/18 16:54; Admin Dose 1 TAB; Start 11/22/18 at 20:30 Morphine Sulfate (morphine) 2 mg Q4H PRN IV .PAIN 7-10 Last administered on 11/23/18 14:59; Admin Dose 2 MG; Start 11/22/18 at 20:30 Zolpidem Tartrate (Ambien) 5 mg QHS PRN PO .INSOMNIA Last administered on 11/27/18 23:35; Admin Dose 5 MG; Start 11/22/18 at 20:30 Docusate Sodium (Colace) 100 mg Q12H PRN PO .CONSTIPATION; Start 11/22/18 at 20:30 Magnesium Hydroxide (Milk Of Mag) 30 ml DAILY PRN PO .CONSTIPATION; Start 11/22/18 at 20:30 Famotidine (Pepcid) 20 mg Q24H PO Last administered on 11/30/18 20:56; Admin Dose 20 MG; Start 11/22/18 at 21:00 Multivit/Ca Carb/ B Cmplx/FA/Prenat (Wen-Justo) 1 tab DAILY PO Last admin istered on 12/01/18 08:27; Admin Dose 1 TAB; Start 11/23/18 at 09:00 Isosorbide Dinitrate (Isordil) 40 mg TID PO Last administered on 12/01/18 13:06; Admin Dose 40 MG; Start 11/23/18 at 09:00 Fluticasone/ Vilanterol (Breo Ellipta 100-25 Mcg Inh) 1 inh DAILY INH Last administered on 11/30/18 08:06; Admin Dose 1 INH; Start 11/23/18 at 10:00 Nifedipine (Procardia Xl) 60 mg BID PO Last administered on 12/01/18 08:22; Admin Dose 60 MG; Start 11/23/18 at 21:00 Hydralazine HCl (Apresoline) 100 mg TID PO Last administered on 12/01/18 13:06; Admin Dose 100 MG; Start 11/28/18 at 21:00 Carvedilol (Coreg) 12.5 mg BID PO Last administered on 12/01/18 08:27; Admin Dose 12.5 MG; Start 11/28/18 at 21:00 Methylprednisolone Sodium Succinate (Solu-Medrol) 40 mg Q6 IV Last administered on 12/01/18 13:06; Admin Dose 40 MG; Start 11/30/18 at 13:00 Albuterol/ Ipratropium (Duoneb) 3 ml Q6H RESP THERAPY HHN Last administered on 12/01/18 14:28; Admin Dose 3 ML; Start 11/30/18 at 14:00 Azithromycin (Zithromax) 250 mg DAILY PO Last administered on 12/01/18at 08:28; Admin Dose 250 MG; Start 12/01/18 at 09:00; Stop 12/04/18 at 09:01 TRICE ZAMORA Dec 01, 2018 15:13
[2018-12-01] MEDS: FAMOTIDINE 20 MG TAB PO SCH (21:31)
[2018-12-01] MEDS: ATORVASTATIN 10 MG TAB PO SCH (21:31)
[2018-12-02] VITALS (11 sets, daily range): BP systolic 121–150; BP diastolic 58–77; PULSE 63–80; RESP 18–22
[2018-12-02] MEDS: METHYLPREDNISOLONE 40 MG INJ IV SCH ×2 (00:52→06:25)
[2018-12-02] MEDS: ALBUTEROL/IPRATROPIUM (NEB) 3 ML AMP HHN SCH ×4 (01:38→20:00)
[2018-12-02] MEDS: PANTOPRAZOLE (EC) 40 MG TAB PO SCH (06:25)
[2018-12-02] MEDS: LEVOTHYROXINE 25 MCG TAB PO SCH (06:25)
[2018-12-02] MEDS: MULTIVIT/CA CARB/B CMPLX/FA TAB PO SCH (08:31)
[2018-12-02] MEDS: ASPIRIN 81 MG TAB PO SCH (08:31)
[2018-12-02] MEDS: ISOSORBIDE DINITRATE 20 MG TAB PO SCH ×3 (08:31→21:01)
[2018-12-02] MEDS: FERROUS SULFATE (EC) 325 MG TAB PO SCH (08:32)
[2018-12-02] MEDS: AZITHROMYCIN 250 MG TAB PO SCH (08:32)
[2018-12-02] MEDS: CLOPIDOGREL 75 MG TAB PO SCH (08:32)
[2018-12-02] MEDS: NIFEdipine (XL) 60 MG TAB PO SCH ×2 (08:34→21:02)
[2018-12-02] MEDS: FLUTICASONE/VILANTEROL 100-25 INH SCH (10:45)
--- NOTE | 2018-12-02 10:53 | CONS ---
Assessment/Plan Assessment/Plan Assessment/Plan (Daily) - Hyperkalemia - Shortness of breath - pulmonary follows - CXR-showed Calcified atherosclerosis in the aorta; Mild central pulmonary vascular congestion and interstitial prominence in both lungs; Scattered atelectasis in both lungs. - Respiratory acidosis 1. acute Kidney injury on CKD III due to hemodynamics and prerenal azotemia 2. 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 H/o HL 6. H/o Hypothyroidism 7. H/o PAD Plan: creatinine trended down - Lasix dcd Procardia Xl for HTN control pt previously had a full CKD work up - no need ot repeat it will continue to follow up Patient seen in collaboration with dr Enedelia Rivera Consultation Date/Type/Reason Admit Date/Time Nov 22, 2018 at 14:27 Initial Consult Date 11/26/18 Type of Consult nephrology Reason for Consultation Renal Insufficiency Requesting Provider: YOSHI GARG MD Date/Time of Note DATE: 12/02/18 TIME: 10:51 24 HR Interval Summary Free Text/Dictation Hyperkalemia Constitutional: requiring O2 Detailed Summary Eyes: no complaints ENT: no complaints Respiratory: shortness of breath Cardiovascular: no complaints Gastrointestinal: no complaints Genitourinary: no complaints Musculoskeletal: no complaints Skin: no complaints Neurologic: no complaints Endocrine: no complaints Psychological: nl mood/affect Immunologic: no complaints Exam/Review of Systems Exam Vitals Vital Signs Date Temp Pulse Resp B/P (MAP) Pulse Ox O2 O2 Flow FiO2 Time Delivery Rate 12/02/18 Nasal 2.0 08:32 Cannula 12/02/18 67 08:05 12/02/18 18 96 08:01 12/02/18 98.0 150/77 07:21 (101) Intake and Output 12/01/18 12/01/18 12/02/18 1515:00 23:00 07:00 IntakeIntake Total 400 ml BalanceBalance 400 ml Constitutional: alert Psych: nl mood/affect Eyes: nl lids, nl sclera ENMT: nl external ears & nose Neck: non-tender Respiratory: clear to auscultation Cardiovascular: nl pulses, other (s1s2) Gastrointestinal: soft, non-tender Musculoskeletal: nl extremities to inspection Extremities: normal pulses Neurological: nl mental status, nl speech Skin: nl turgor Lymph: nontender Results Result Diagram: 12/02/18 0040 12/02/18 0530 Results 24hrs Laboratory Tests Test 12/02/18 00:40 12/02/18 05:30 White Blood Count 9.2 # Red Blood Count 2.82 L Hemoglobin 8.2 L Hematocrit 26.6 L Mean Corpuscular Volume 94.3 Mean Corpuscular Hemoglobin 29.1 Mean Corpuscular Hemoglobin Concent 30.8 L Red Cell Distribution Width 13.4 Platelet Count 297 Mean Platelet Volume 10.5 H Immature Granulocytes % 0.700 H Neutrophils % 89.8 H Lymphocytes % 7.1 L Monocytes % 2.3 Eosinophils % 0.0 Basophils % 0.1 Nucleated Red Blood Cells % 0.0 Immature Granulocytes # 0.060 H Neutrophils # 8.3 H Lymphocytes # 0.7 L Monocytes # 0.2 L Eosinophils # 0.0 Basophils # 0.0 Nucleated Red Blood Cells # 0.0 Sodium Level 139 139 Potassium Level 5.7 H 5.4 H Chloride Level 106 108 Carbon Dioxide Level 23 22 Anion Gap 10 # 9 Blood Urea Nitrogen 48 H 49 H Creatinine 1.78 H 1.73 H Est Glomerular Filtrat Rate mL/min Glucose Level 163 146 Calcium Level 8.7 8.8 Medications Medication Current Medications Albuterol (Ventolin Hfa) 2 puff Q4H RESP THERAPY PRN INH WHEEZING AND SOB Last administered on 11/23/18at 14:56; Admin Dose 2 PUFF; Start 11/22/18 at 18:30 Atorvastatin Calcium (Lipitor) 10 mg QHS PO Last administered on 12/01/18at 21:31; Admin Dose 10 MG; Start 11/22/18 at 21:00 Clopidogrel Bisulfate (plaVIX) 75 mg DAILY PO Last administered on 12/02/18 08:32; Admin Dose 75 MG; Start 11/23/18 at 09:00 Ferrous Sulfate (Ferrous Sulfate (Ec)) 325 mg DAILY PO Last administered on 12/02/18 08:32; Admin Dose 325 MG; Start 11/23/18 at 09:00 Levothyroxine Sodium (Synthroid) 25 mcg BEFORE BREAKFAST PO Last administered on 12/02/18at 06:25; Admin Dose 25 MCG; Start 11/23/18 at 07:00 Pantoprazole (Protonix Tab) 40 mg AC BREAKFAST PO Last administered on 12/02/18 06:25; Admin Dose 40 MG; Start 11/23/18 at 07:00 IV Flush (NS 3 ml) 3 ml PER PROTOCOL IV ; Start 11/22/18 at 20:30 Ondansetron HCl (Zofran Inj) 4 mg Q6H PRN IV NAUSEA/VOMITING; Start 11/22/18 at 20:30 Aspirin (Aspirin) 81 mg DAILY PO Last administered on 12/02/18 08:31; Admin Dose 81 MG; Start 11/23/18 at 09:00 Nitroglycerin (Nitroglycerin (Sl Tab) 0.4 Mg) 1 tab Q5M PRN SL .CHEST PAIN; Start 11/22/18 at 20:30 Acetaminophen (Tylenol Tab) 650 mg Q6H PRN PO .PAIN 1-3 OR TEMP; Start 11/22/18 at 20:30 Acetaminophen/ Hydrocodone Bitart ([place] (5/325)) 1 tab Q6H PRN PO .PAIN 4-6 Last administered on 11/23/18 16:54; Admin Dose 1 TAB; Start 11/22/18 at 20:30 Morphine Sulfate (morphine) 2 mg Q4H PRN IV .PAIN 7-10 Last administered on 11/23/18 14:59; Admin Dose 2 MG; Start 11/22/18 at 20:30 Zolpidem Tartrate (Ambien) 5 mg QHS PRN PO .INSOMNIA Last administered on 11/27/18 23:35; Admin Dose 5 MG; Start 11/22/18 at 20:30 Docusate Sodium (Colace) 100 mg Q12H PRN PO .CONSTIPATION; Start 11/22/18 at 20:30 Magnesium Hydroxide (Milk Of Mag) 30 ml DAILY PRN PO .CONSTIPATION; Start 11/22/18 at 20:30 Famotidine (Pepcid) 20 mg Q24H PO Last administered on 12/01/18 21:31; Admin Dose 20 MG; Start 11/22/18 at 21:00 Multivit/Ca Carb/ B Cmplx/FA/Prenat (Wen-Justo) 1 tab DAILY PO Last administered on 12/02/18 08:31; Admin Dose 1 TAB; Start 11/23/18 at 09:00 Isosorbide Dinitrate (Isordil) 40 mg TID PO Last administered on 12/02/18 08:31; Admin Dose 40 MG; Start 11/23/18 at 09:00 Fluticasone/ Vilanterol (Breo Ellipta 100-25 Mcg Inh) 1 inh DAILY INH Last administered on 12/02/18 10:45; Admin Dose 1 INH; Start 11/23/18 at 10:00 Nifedipine (Procardia Xl) 60 mg BID PO Last administered on 12/02/18 08:34; Admin Dose 60 MG; Start 11/23/18 at 21:00 Hydralazine HCl (Apresoline) 100 mg TID PO Last administered on 12/02/18 08:32; Admin Dose 100 MG; Start 11/28/18 at 21:00 Carvedilol (Coreg) 12.5 mg BID PO Last administered on 12/02/18 08:32; Admin Dose 12.5 MG; Start 11/28/18 at 21:00 Methylprednisolone Sodium Succinate (Solu-Medrol) 40 mg Q6 IV Last administered on 12/02/18 06:25; Admin Dose 40 MG; Start 11/30/18 at 13:00 Albuterol/ Ipratropium (Duoneb) 3 ml Q6H RESP THERAPY HHN Last administered on 12/02/18 07:52; Admin Dose 3 ML; Start 11/30/18 at 14:00 Azithromycin (Zithromax) 250 mg DAILY PO Last administered on 12/02/18 08:32; Admin Dose 250 MG; Start 12/01/18 at 09:00; Stop 12/04/18 at 09:01 Sodium Polystyrene Sulfonate (Kayexelate 15 Gm Kit (Powder+Sorbitol)) 30 gm ONCE ONCE PO Last administered on 12/02/18 10:46; Admin Dose 30 GM; Start 12/02/18 at 11:00; Stop 12/02/18 at 11:01 AMANDA DORSEY Dec 02, 2018 10:53
[2018-12-02] MEDS ORDERED: SODIUM POLYSTYRENE 15 GM KIT (POWDER + SORBITOL) PO ONE (11:00)
--- NOTE | 2018-12-02 11:05 | CONS ---
Assessment/Plan Assessment/Plan Assessment/Plan (Daily) Assessment and recommendations; next 1. Patient admitted with asthma exacerbation and acute bronchitis with marked overall interval improvement. 2. Chronic renal insufficiency. 3. History of anemia. 4. Hypertension. Discontinue further Solu-Medrol dosing. Continue other supportive measures. Consider discharge. Patient will need to have a long-acting beta agonist with inhaled steroid inhaler on a regular scheduled dosing as an outpatient. Needs a PFT as well. Would benefit from outpatient pulmonary clinic evaluation. Consultation Date/Type/Reason Admit Date/Time Nov 22, 2018 at 14:27 Initial Consult Date 11/30/18 Type of Consult Pulmonary Patient is a pleasant 72-year-old lady who came into the hospital on the of this month with a few days history of coughing wheezing shortness of breath and chest pain associated with coughing. Patient has undergone stress test which has been negative. By the time I saw her, patient was having several bouts of coughing and appeared very congested. Patient denies any further chest pain. Any fever, chills, any body aches or myalgias. Past medical history; 1. History of asthma. 2. Hypertension 3. Peripheral vascular disease. 4. Chronic renal insufficiency. 5. History of knee replacement. 6. Chronic anemia. 7. Hypothyroidism. Medications; reviewed. Allergies; none. Social history; noncontributory. Family history; noncontributory. Occupational history; patient has been a housewife. Review of systems; denies any headache, sinus symptoms. Any seizures. Any sore throat, dysphagia denies any further chest pain. Complains of chest congestion, coughing, wheezing, shortness of breath. Denies any abdominal pain, nausea or vomiting. Any edema. Orthopnea. Any melena or hematochezia. General exam; elderly woman, sitting in a chair by bedside. Several bouts of severe coughing were observed. Requesting Provider: YOSHI GARG MD Date/Time of Note DATE: 12/02/18 TIME: 11:03 24 HR Interval Summary Free Text/Dictation Patient's condition is stable. Denies any chest pain, coughing, wheezing, shortness of breath or any sputum production. General exam; elderly lady, awake alert, currently in no distress. Exam/Review of Systems Exam Vitals Vital Signs Date Temp Pulse Resp B/P (MAP) Pulse Ox O2 O2 Flow FiO2 Time Delivery Rate 12/02/18 Nasal 2.0 08:32 Cannula 12/02/18 67 08:05 12/02/18 18 96 08:01 12/02/18 98.0 150/77 07:21 (101) Intake and Output 12/01/18 12/01/18 12/02/18 1515:00 23:00 07:00 IntakeIntake Total 400 ml BalanceBalance 400 ml Exam H EENT exam; supple neck, no JVD. No lymphadenopathy. Midline trachea. No thyromegaly. No neck masses. Chest exam; clear to auscultation. S1-S2 audible, no murmurs. Regular rhythm. Abdomen exam; soft, no organomegaly. Protuberant. Bowel sounds audible. Nontender. Extremity exam; no peripheral edema or clubbing. DENTAL OFFICE ASSISTANT exam; no focal deficit. Results Result Diagram: 12/02/18 0040 12/02/18 0530 Results 24hrs Laboratory Tests Test 12/02/18 00:40 12/02/18 05:30 White Blood Count 9.2 # Red Blood Count 2.82 L Hemoglobin 8.2 L Hematocrit 26.6 L Mean Corpuscular Volume 94.3 Mean Corpuscular Hemoglobin 29.1 Mean Corpuscular Hemoglobin Concent 30.8 L Red Cell Distribution Width 13.4 Platelet Count 297 Mean Platelet Volume 10.5 H Immature Granulocytes % 0.700 H Neutrophils % 89.8 H Lymphocytes % 7.1 L Monocytes % 2.3 Eosinophils % 0.0 Basophils % 0.1 Nucleated Red Blood Cells % 0.0 Immature Granulocytes # 0.060 H Neutrophils # 8.3 H Lymphocytes # 0.7 L Monocytes # 0.2 L Eosinophils # 0.0 Basophils # 0.0 Nucleated Red Blood Cells # 0.0 Sodium Level 139 139 Potassium Level 5.7 H 5.4 H Chloride Level 106 108 Carbon Dioxide Level 23 22 Anion Gap 10 # 9 Blood Urea Nitrogen 48 H 49 H Creatinine 1.78 H 1.73 H Est Glomerular Filtrat Rate mL/min Glucose Level 163 146 Calcium Level 8.7 8.8 Medications Medication Current Medications Albuterol (Ventolin Hfa) 2 puff Q4H RESP THERAPY PRN INH WHEEZING AND SOB Last administered on 11/23/18at 14:56; Admin Dose 2 PUFF; Start 11/22/18 at 18:30 Atorvastatin Calcium (Lipitor) 10 mg QHS PO Last administered on 12/01/18 21 :31; Admin Dose 10 MG; Start 11/22/18 at 21:00 Clopidogrel Bisulfate (plaVIX) 75 mg DAILY PO Last administered on 12/02/18 08:32; Admin Dose 75 MG; Start 11/23/18 at 09:00 Ferrous Sulfate (Ferrous Sulfate (Ec)) 325 mg DAILY PO Last administered on 12/02/18 08:32; Admin Dose 325 MG; Start 11/23/18 at 09:00 Levothyroxine Sodium (Synthroid) 25 mcg BEFORE BREAKFAST PO Last administered on 12/02/18 06:25; Admin Dose 25 MCG; Start 11/23/18 at 07:00 Pantoprazole (Protonix Tab) 40 mg AC BREAKFAST PO Last administered on 12/02/18 06:25; Admin Dose 40 MG; Start 11/23/18 at 07:00 IV Flush (NS 3 ml) 3 ml PER PROTOCOL IV ; Start 11/22/18 at 20:30 Ondansetron HCl (Zofran Inj) 4 mg Q6H PRN IV NAUSEA/VOMITING; Start 11/22/18 at 20:30 Aspirin (Aspirin) 81 mg DAILY PO Last administered on 12/02/18 08:31; Admin Dose 81 MG; Start 11/23/18 at 09:00 Nitroglycerin (Nitroglycerin (Sl Tab) 0.4 Mg) 1 tab Q5M PRN SL .CHEST PAIN; Start 11/22/18 at 20:30 Acetaminophen (Tylenol Tab) 650 mg Q6H PRN PO .PAIN 1-3 OR TEMP; Start 11/22/18 at 20:30 Acetaminophen/ Hydrocodone Bitart ([place] (5/325)) 1 tab Q6H PRN PO .PAIN 4-6 Last administered on 11/23/18 16:54; Admin Dose 1 TAB; Start 11/22/18 at 20:30 Morphine Sulfate (morphine) 2 mg Q4H PRN IV .PAIN 7-10 Last administered on 11/23/18 14:59; Admin Dose 2 MG; Start 11/22/18 at 20:30 Zolpidem Tartrate (Ambien) 5 mg QHS PRN PO .INSOMNIA Last administered on 11/27/18 23:35; Admin Dose 5 MG; Start 11/22/18 at 20:30 Docusate Sodium (Colace) 100 mg Q12H PRN PO .CONSTIPATION; Start 11/22/18 at 20:30 Magnesium Hydroxide (Milk Of Mag) 30 ml DAILY PRN PO .CONSTIPATION; Start 11/22/18 at 20:30 Famotidine (Pepcid) 20 mg Q24H PO Last administered on 12/01/18 21:31; Admin Dose 20 MG; Start 11/22/18 at 21:00 Multivit/Ca Carb/ B Cmplx/FA/Prenat (Wen-Justo) 1 tab DAILY PO Last administered on 12/02/18 08:31; Admin Dose 1 TAB; Start 11/23/18 at 09:00 Isosorbide Dinitrate (Isordil) 40 mg TID PO Last administered on 12/02/18 08:31; Admin Dose 40 MG; Start 11/23/18 at 09:00 Fluticasone/ Vilanterol (Breo Ellipta 100-25 Mcg Inh) 1 inh DAILY INH Last administered on 12/02/18 10:45; Admin Dose 1 INH; Start 11/23/18 at 10:00 Nifedipine (Procardia Xl) 60 mg BID PO Last administered on 12/02/18 08:34; Admin Dose 60 MG; Start 11/23/18 at 21:00 Hydralazine HCl (Apresoline) 100 mg TID PO Last administered on 12/02/18 08:32; Admin Dose 100 MG; Start 11/28/18 at 21:00 Carvedilol (Coreg) 12.5 mg BID PO Last administered on 12/02/18 08:32; Admin Dose 12.5 MG; Start 11/28/18 at 21:00 Albuterol/ Ipratropium (Duoneb) 3 ml Q6H RESP THERAPY HHN Last administered on 12/02/18 07:52; Admin Dose 3 ML; Start 11/30/18 at 14:00 Azithromycin (Zithromax) 250 mg DAILY PO Last administered on 12/02/18 08:32; Admin Dose 250 MG; Start 12/01/18 at 09:00; Stop 12/04/18 at 09:01 RESHMA JIMÉNEZ 20, 2019 11:05
--- NOTE | 2018-12-02 16:34 | PN ---
Date/Time of Note Date/Time of Note DATE: 12/02/18 TIME: 16:30 Assessment/Plan VTE Prophylaxis Risk score (from Nsg)>0 risk: 3 SCD applied (from Nsg): Yes Pharmacological prophylaxis: LMWH Lines/Catheters IV Catheter Type (from Nrsg): Peripheral IV Urinary Cath still in place: No Assessment/Plan Hospital Course Patient with hyperkalemia, status post Kayexalate. Patient is weaned off steroids, denies any shortness of breath. If patient's condition improved and electrolytes are stable, anticipate discharge home with home health PT, long- acting beta agonist with inhaled steroid inhaler on a regular scheduled dosing as an outpatient, and pulmonology follow-up for pulmonary function test as an outpatient and Lasix. Assessment/Plan -Acute bronchitis with asthma exacerbation, Dr. Chun is following in pulmonology consultation. Continue DuoNeb and Zithromax. -Chest pain, rule out acute coronary syndrome. cardiac enzymes negative x3, stress test is negative for ischemia, continue aspirin, Plavix, nitroglycerin, morphine as needed for pain. Dr. Wren is following in cardiology consultation. -S/p hypertensive emergency. S/p nitroglycerin gtt. Continue Coreg and Procardia. -Congestive heart failure, Lasix is held by a helper marble finisher. 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 -Dyslipidemia. -Hypothyroidism, continue levothyroxine -Anemia, multifactorial, iron deficiency anemia and of chronic disease -History of total knee replacement -PVD -Obesity with BMI of 38.1. Further recommendations based on clinical course. Plan of care discussed with Lissett Segovia. Result Diagram: 12/02/18 0040 12/02/18 0530 Results 24hrs Laboratory Tests Test 12/02/18 00:40 12/02/18 05:30 White Blood Count 9.2 # Red Blood Count 2.82 L Hemoglobin 8.2 L Hematocrit 26.6 L Mean Corpuscular Volume 94.3 Mean Corpuscular Hemoglobin 29.1 Mean Corpuscular Hemoglobin Concent 30.8 L Red Cell Distribution Width 13.4 Platelet Count 297 Mean Platelet Volume 10.5 H Immature Granulocytes % 0.700 H Neutrophils % 89.8 H Lymphocytes % 7.1 L Monocytes % 2.3 Eosinophils % 0.0 Basophils % 0.1 Nucleated Red Blood Cells % 0.0 Immature Granulocytes # 0.060 H Neutrophils # 8.3 H Lymphocytes # 0.7 L Monocytes # 0.2 L Eosinophils # 0.0 Basophils # 0.0 Nucleated Red Blood Cells # 0.0 Sodium Level 139 139 Potassium Level 5.7 H 5.4 H Chloride Level 106 108 Carbon Dioxide Level 23 22 Anion Gap 10 # 9 Blood Urea Nitrogen 48 H 49 H Creatinine 1.78 H 1.73 H Est Glomerular Filtrat Rate mL/min Glucose Level 163 146 Calcium Level 8.7 8.8 Exam/Review of Systems Exam Vitals Vital Signs Date Temp Pulse Resp B/P (MAP) Pulse Ox O2 O2 Flow FiO2 Time Delivery Rate 12/02/18 75 16:25 12/02/18 98.0 22 138/65 92 2.0 15:40 (89) 12/02/18 Nasal 13:16 Cannula Intake and Output 12/01/18 12/01/18 12/02/18 1515:00 23:00 07:00 IntakeIntake Total 400 ml BalanceBalance 400 ml Exam Constitutional: alert, oriented Respiratory: diminished breath sounds Cardiovascular: regular rate and rhythm Gastrointestinal: soft, non-tender Musculoskeletal: nl extremities to inspection Extremities: edema Neurological: nl mental status Skin: nl turgor Results Results 24hrs Laboratory Tests Test 12/02/18 00:40 12/02/18 05:30 White Blood Count 9.2 # Red Blood Count 2.82 L Hemoglobin 8.2 L Hematocrit 26.6 L Mean Corpuscular Volume 94.3 Mean Corpuscular Hemoglobin 29.1 Mean Corpuscular Hemoglobin Concent 30.8 L Red Cell Distribution Width 13.4 Platelet Count 297 Mean Platelet Volume 10.5 H Immature Granulocytes % 0.700 H Neutrophils % 89.8 H Lymphocytes % 7.1 L Monocytes % 2.3 Eosinophils % 0.0 Basophils % 0.1 Nucleated Red Blood Cells % 0.0 Immature Granulocytes # 0.060 H Neutrophils # 8.3 H Lymphocytes # 0.7 L Monocytes # 0.2 L Eosinophils # 0.0 Basophils # 0.0 Nucleated Red Blood Cells # 0.0 Sodium Level 139 139 Potassium Level 5.7 H 5.4 H Chloride Level 106 108 Carbon Dioxide Level 23 22 Anion Gap 10 # 9 Blood Urea Nitrogen 48 H 49 H Creatinine 1.78 H 1.73 H Est Glomerular Filtrat Rate mL/min Glucose Level 163 146 Calcium Level 8.7 8.8 Medications Medication Current Medications Albuterol (Ventolin Hfa) 2 puff Q4H RESP THERAPY PRN INH WHEEZING AND SOB Last administered on 11/23/18 14:56; Admin Dose 2 PUFF; Start 11/22/18 at 18:30 Atorvastatin Calcium (Lipitor) 10 mg QHS PO Last administered on 12/01/18 21:31; Admin Dose 10 MG; Start 11/22/18 at 21:00 Clopidogrel Bisulfate (plaVIX) 75 mg DAILY PO Last administered on 12/02/18 08:32; Admin Dose 75 MG; Start 11/23/18 at 09:00 Ferrous Sulfate (Ferrous Sulfate (Ec)) 325 mg DAILY PO Last administered on 12/02/18 08:32; Admin Dose 325 MG; Start 11/23/18 at 09:00 Levothyroxine Sodium (Synthroid) 25 mcg BEFORE BREAKFAST PO Last administered on 12/02/18 06:25; Admin Dose 25 MCG; Start 11/23/18 at 07:00 Pantoprazole (Protonix Tab) 40 mg AC BREAKFAST PO Last administered on 12/02/18 06:25; Admin Dose 40 MG; Start 11/23/18 at 07:00 IV Flush (NS 3 ml) 3 ml PER PROTOCOL IV ; Start 11/22/18 at 20:30 Ondansetron HCl (Zofran Inj) 4 mg Q6H PRN IV NAUSEA/VOMITING; Start 11/22/18 at 20:30 Aspirin (Aspirin) 81 mg DAILY PO Last administered on 12/02/18 08:31; Admin Dose 81 MG; Start 11/23/18 at 09:00 Nitroglycerin (Nitroglycerin (Sl Tab) 0.4 Mg) 1 tab Q5M PRN SL .CHEST PAIN; Start 11/22/18 at 20:30 Acetaminophen (Tylenol Tab) 650 mg Q6H PRN PO .PAIN 1-3 OR TEMP; Start 11/22/18 at 20:30 Acetaminophen/ Hydrocodone Bitart ([place] (5/325)) 1 tab Q6H PRN PO .PAIN 4-6 Last administered on 11/23/18 16:54; Admin Dose 1 TAB; Start 11/22/18 at 20:30 Morphine Sulfate (morphine) 2 mg Q4H PRN IV .PAIN 7-10 Last administered on 11/23/18 14:59; Admin Dose 2 MG; Start 11/22/18 at 20:30 Zolpidem Tartrate (Ambien) 5 mg QHS PRN PO .INSOMNIA Last administered on 11/27/18 23:35; Admin Dose 5 MG; Start 11/22/18 at 20:30 Docusate Sodium (Colace) 100 mg Q12H PRN PO .CONSTIPATION; Start 11/22/18 at 20:30 Magnesium Hydroxide (Milk Of Mag) 30 ml DAILY PRN PO .CONSTIPATION; Start 11/22/18 at 20:30 Famotidine (Pepcid) 20 mg Q24H PO Last administered on 12/01/18 21:31; Admin Dose 20 MG; Start 11/22/18 at 21:00 Multivit/Ca Carb/ B Cmplx/FA/Prenat (Wen-Justo) 1 tab DAILY PO Last administered on 12/02/18 08:31; Admin Dose 1 TAB; Start 11/23/18 at 09:00 Isosorbide Dinitrate (Isordil) 40 mg TID PO Last administered on 12/02/18 12:53; Admin Dose 40 MG; Start 11/23/18 at 09:00 Fluticasone/ Vilanterol (Breo Ellipta 100-25 Mcg Inh) 1 inh DAILY INH Last administered on 12/02/18 10:45; Admin Dose 1 INH; Start 11/23/18 at 10:00 Nifedipine (Procardia Xl) 60 mg BID PO Last administered on 12/02/18 08:34; Admin Dose 60 MG; Start 11/23/18 at 21:00 Hydralazine HCl (Apresoline) 100 mg TID PO Last administered on 12/02/18 12:53; Admin Dose 100 MG; Start 11/28/18 at 21:00 Carvedilol (Coreg) 12.5 mg BID PO Last administered on 12/02/18 08:32; Admin Dose 12.5 MG; Start 11/28/18 at 21:00 Albuterol/ Ipratropium (Duoneb) 3 ml Q6H RESP THERAPY HHN Last administered on 12/02/18 13:06; Admin Dose 3 ML; Start 11/30/18 at 14:00 Azithromycin (Zithromax) 250 mg DAILY PO Last administered on 12/02/18at 08:32; Admin Dose 250 MG; Start 12/01/18 at 09:00; Stop 12/04/18 at 09:01 TRICE ZAMORA Dec 02, 2018 16:33
[2018-12-02] MEDS: ATORVASTATIN 10 MG TAB PO SCH (21:00)
[2018-12-02] MEDS: FAMOTIDINE 20 MG TAB PO SCH (21:00)
[2018-12-02] MEDS: ZOLPIDEM 5 MG TAB PO PRN (21:02)
[2018-12-03] VITALS (12 sets, daily range): BP systolic 132–162; BP diastolic 58–80; PULSE 62–78; RESP 18–22
[2018-12-03] MEDS: ALBUTEROL/IPRATROPIUM (NEB) 3 ML AMP HHN SCH ×4 (01:47→19:32)
--- NOTE | 2018-12-03 05:20 | PN ---
Date/Time of Note Date/Time of Note DATE: 12/03/18 TIME: 05:20 Assessment/Plan VTE Prophylaxis Risk score (from Ns)>0 risk: 3 SCD applied (from Ns): Yes SCD contraindicated: other Pharmacological prophylaxis: other Pharm contraindication: other Lines/Catheters IV Catheter Type (from [facility]): Peripheral IV Urinary Cath still in place: No Assessment/Plan Assessment/Plan -Acute bronchitis with asthma exacerbation, Dr. Chun is following in pulmonology consultation. Continue DuoNeb and Zithromax. -Chest pain, rule out acute coronary syndrome. cardiac enzymes negative x3, stress test is negative for ischemia, continue aspirin, Plavix, nitroglycerin, morphine as needed for pain. Dr. Wren is following in cardiology consultation. -S/p hypertensive emergency. S/p nitroglycerin gtt. Continue Coreg and Procardia. -Congestive heart failure, Lasix is held by a safety intern. 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 -Dyslipidemia. -Hypothyroidism, continue levothyroxine -Anemia, multifactorial, iron deficiency anemia and of chronic disease -History of total knee replacement -PVD -Obesity with BMI of 38.1. Further recommendations based on clinical course. Plan of care discussed with Dr. Segovia. Result Diagram: 12/02/18 0040 12/02/18 0530 Results 24hrs Laboratory Tests Test 12/02/18 05:30 Sodium Level 139 Potassium Level 5.4 H Chloride Level 108 Carbon Dioxide Level 22 Anion Gap 9 Blood Urea Nitrogen 49 H Creatinine 1.73 H Est Glomerular Filtrat Rate mL/min Glucose Level 146 Calcium Level 8.8 Subjective 24 Hr Interval Summary Free Text/Dictation c/o shortness of breath on activity no shortness of breath reported at present; stays on o2 via [place] nurse manager to assess for need for Home O2 Vs SNF Cr is elevated today - will check with dr Rivera regarding her Renal status Anticipate discharge tomorrow staff Constitutional: requiring O2 Eyes: no complaints ENT: no complaints Respiratory: shortness of breath Cardiovascular: no complaints Gastrointestinal: no complaints Genitourinary: no complaints Musculoskeletal: no complaints Skin: no complaints Neurologic: no complaints Endocrine: no complaints Lymphatic: no complaints Psychological: nl mood/affect Exam/Review of Systems Exam Vitals Vital Signs Date Temp Pulse Resp B/P (MAP) Pulse Ox O2 O2 Flow FiO2 Time Delivery Rate 12/03/18 62 04:00 12/03/18 97.7 18 134/67 98 03:24 (89) 12/03/18 2.0 01:47 12/03/18 Nasal 01:47 Cannula Intake and Output 12/02/18 12/02/18 12/03/18 1515:00 23:00 07:00 IntakeIntake Total 320 ml 350 ml BalanceBalance 320 ml 350 ml Constitutional: alert, well developed, obese Psych: nl mood/affect Head: normocephalic Eyes: nl lids, nl sclera ENMT: nl external ears & nose Respiratory: diminished breath sounds Cardiovascular: nl pulses, other (s1s2) Gastrointestinal: soft, non-tender Musculoskeletal: nl extremities to inspection Neurological: nl speech, other (alert/reponsive) Skin: nl turgor Lymph: nontender Results Results 24hrs Laboratory Tests Test 12/02/18 05:30 Sodium Level 139 Potassium Level 5.4 H Chloride Level 108 Carbon Dioxide Level 22 Anion Gap 9 Blood Urea Nitrogen 49 H Creatinine 1.73 H Est Glomerular Filtrat Rate mL/min Glucose Level 146 Calcium Level 8.8 Medications Medication Current Medications Albuterol (Ventolin Hfa) 2 puff Q4H RESP THERAPY PRN INH WHEEZING AND SOB Last administered on 11/23/18at 14:56; Admin Dose 2 PUFF; Start 11/22/18 at 18:30 Atorvastatin Calcium (Lipitor) 10 mg QHS PO Last administered on 12/02/18 21:00; Admin Dose 10 MG; Start 11/22/18 at 21:00 Clopidogrel Bisulfate (plaVIX) 75 mg DAILY PO Last administered on 12/02/18 08:32; Admin Dose 75 MG; Start 11/23/18 at 09:00 Ferrous Sulfate (Ferrous Sulfate (Ec)) 325 mg DAILY PO Last administered on 12/02/18 08:32; Admin Dose 325 MG; Start 11/23/18 at 09:00 Levothyroxine Sodium (Synthroid) 25 mcg BEFORE BREAKFAST PO Last administered on 12/02/18 06:25; Admin Dose 25 MCG; Start 11/23/18 at 07:00 Pantoprazole (Protonix Tab) 40 mg AC BREAKFAST PO Last administered on 12/02/18 06:25; Admin Dose 40 MG; Start 11/23/18 at 07:00 IV Flush (NS 3 ml) 3 ml PER PROTOCOL IV ; Start 11/22/18 at 20:30 Ondansetron HCl (Zofran Inj) 4 mg Q6H PRN IV NAUSEA/VOMITING; Start 11/22/18 at 20:30 Aspirin (Aspirin) 81 mg DAILY PO Last administered on 12/02/18 08:31; Admin Dose 81 MG; Start 11/23/18 at 09:00 Nitroglycerin (Nitroglycerin (Sl Tab) 0.4 Mg) 1 tab Q5M PRN SL .CHEST PAIN; Start 11/22/18 at 20:30 Acetaminophen (Tylenol Tab) 650 mg Q6H PRN PO .PAIN 1-3 OR TEMP Last administered on 12/02/18 21:02; Admin Dose 650 MG; Start 11/22/18 at 20:30 Acetaminophen/ Hydrocodone Bitart ([place] (5/325)) 1 tab Q6H PRN PO .PAIN 4-6 Last administered on 11/23/18 16:54; Admin Dose 1 TAB; Start 11/22/18 at 20:30 Morphine Sulfate (morphine) 2 mg Q4H PRN IV .PAIN 7-10 Last administered on 11/23/18 14:59; Admin Dose 2 MG; Start 11/22/18 at 20:30 Zolpidem Tartrate (Ambien) 5 mg QHS PRN PO .INSOMNIA Last administered on 12/02/18 21:02; Admin Dose 5 MG; Start 11/22/18 at 20:30 Docusate Sodium (Colace) 100 mg Q12H PRN PO .CONSTIPATION; Start 11/22/18 at 20:30 Magnesium Hydroxide (Milk Of Mag) 30 ml DAILY PRN PO .CONSTIPATION; Start 11/22/18 at 20:30 Famotidine (Pepcid) 20 mg Q24H PO Last administered on 12/02/18 21:00; Admin Dose 20 MG; Start 11/22/18 at 21:00 Multivit/Ca Carb/ B Cmplx/FA/Prenat (Wen-Justo) 1 tab DAILY PO Last administered on 12/02/18 08:31; Admin Dose 1 TAB; Start 11/23/18 at 09:00 Isosorbide Dinitrate (Isordil) 40 mg TID PO Last administered on 12/02/18 21:01; Admin Dose 40 MG; Start 11/23/18 at 09:00 Fluticasone/ Vilanterol (Breo Ellipta 100-25 Mcg Inh) 1 inh DAILY INH Last administered on 12/02/18 10:45; Admin Dose 1 INH; Start 11/23/18 at 10:00 Nifedipine (Procardia Xl) 60 mg BID PO Last administered on 12/02/18 21:02; Admin Dose 60 MG; Start 11/23/18 at 21:00 Hydralazine HCl (Apresoline) 100 mg TID PO Last administered on 12/02/18 21:01; Admin Dose 100 MG; Start 11/28/18 at 21:00 Carvedilol (Coreg) 12.5 mg BID PO Last administered on 12/02/18 21:00; Admin Dose 12.5 MG; Start 11/28/18 at 21:00 Albuterol/ Ipratropium (Duoneb) 3 ml Q6H RESP THERAPY HHN Last administered on 12/03/18 01:47; Admin Dose 3 ML; Start 11/30/18 at 14:00 Azithromycin (Zithromax) 250 mg DAILY PO Last administered on 12/02/18 08:32; Admin Dose 250 MG; Start 12/01/18 at 09:00; Stop 12/04/18 at 09:01 AMANDA DORSEY Dec 03, 2018 05:20
[2018-12-03] MEDS: PANTOPRAZOLE (EC) 40 MG TAB PO SCH (05:57)
[2018-12-03] MEDS: LEVOTHYROXINE 25 MCG TAB PO SCH (05:57)
[2018-12-03] MEDS: FLUTICASONE/VILANTEROL 100-25 INH SCH (08:27)
[2018-12-03] MEDS: MULTIVIT/CA CARB/B CMPLX/FA TAB PO SCH (08:28)
[2018-12-03] MEDS: FERROUS SULFATE (EC) 325 MG TAB PO SCH (08:28)
[2018-12-03] MEDS: CLOPIDOGREL 75 MG TAB PO SCH (08:28)
[2018-12-03] MEDS: ISOSORBIDE DINITRATE 20 MG TAB PO SCH ×3 (08:29→20:19)
[2018-12-03] MEDS: AZITHROMYCIN 250 MG TAB PO SCH (08:29)
[2018-12-03] MEDS: NIFEdipine (XL) 60 MG TAB PO SCH ×2 (08:29→20:20)
[2018-12-03] MEDS: ASPIRIN 81 MG TAB PO SCH (08:30)
--- NOTE | 2018-12-03 10:50 | CONS ---
Consultation Date/Type/Reason Admit Date/Time Nov 22, 2018 at 14:27 Initial Consult Date 11/30/18 Type of Consult Pulmonary Patient is a pleasant 72-year-old lady who came into the hospital on the of this month with a few days history of coughing wheezing shortness of breath and chest pain associated with coughing. Patient has undergone stress test which has been negative. By the time I saw her, patient was having several bouts of coughing and appeared very congested. Patient denies any further chest pain. Any fever, chills, any body aches or myalgias. Past medical history; 1. History of asthma. 2. Hypertension 3. Peripheral vascular disease. 4. Chronic renal insufficiency. 5. History of knee replacement. 6. Chronic anemia. 7. Hypothyroidism. Medications; reviewed. Allergies; none. Social history; noncontributory. Family history; noncontributory. Occupational history; patient has been a housewife. Review of systems; denies any headache, sinus symptoms. Any seizures. Any sore throat, dysphagia denies any further chest pain. Complains of chest congestion, coughing, wheezing, shortness of breath. Denies any abdominal pain, nausea or vomiting. Any edema. Orthopnea. Any melena or hematochezia. General exam; elderly woman, sitting in a chair by bedside. Several bouts of severe coughing were observed. Requesting Provider: YOSHI GARG MD Date/Time of Note DATE: 12/03/18 TIME: 10:47 24 HR Interval Summary Free Text/Dictation Patient's condition is stable. Denies any chest pain, coughing, wheezing, sputum production. General exam; elderly woman, awake alert, doing very well on room air. Currently in no distress. HEENT exam; supple neck, no JVD. No lymphadenopathy. Midline trachea. No thyromegaly. Patient has fair dentition. No neck masses. Chest exam; clear to auscultation. S1-S2 audible, no murmurs. Regular rhythm. Abdomen exam; soft, no organomegaly. Mildly protuberant. Bowel sounds audible. Extremity exam; no peripheral edema clubbing. [employer] exam; no focal deficit. Assessment and recommendations; 1. Patient admitted with shortness of breath, coughing and wheezing as well as chest pain, stress test has been negative. Patient has responded markedly to bronchodilator as well as systemic steroid regimen. Off Solu-Medrol since yesterday with stable clinical status. 2. History of asthma, possibly suboptimally controlled in outpatient setting. 3. Chronic mild renal insufficiency. 4. History of hypertension and hypothyroidism. Consider discharge on outpatient bronchodilator regimen consisting of long- acting beta agonist with inhaled corticosteroid inhaler on a regular basis with rescue inhaler on an as needed basis. Once patient finishes Zithromax for 1 additional dose she will not need any further antibiotic treatment. Patient will benefit from follow-up in outpatient pulmonary clinic and would require to have a PFT done. Exam/Review of Systems Exam Vitals Vital Signs Date Temp Pulse Resp B/P (MAP) Pulse Ox O2 O2 Flow FiO2 Time Delivery Rate 12/03/18 69 08:51 12/03/18 95 Nasal 2.0 07:47 Cannula 12/03/18 98.0 162/80 07:28 (107) Intake and Output 12/02/18 12/02/18 12/03/18 1515:00 23:00 07:00 IntakeIntake Total 320 ml 350 ml BalanceBalance 320 ml 350 ml Results Result Diagram: 12/03/18 0458 12/03/18 0458 Results 24hrs Laboratory Tests Test 12/03/18 04:58 White Blood Count 8.0 Red Blood Count 2.82 L Hemoglobin 8.1 L Hematocrit 26.7 L Mean Corpuscular Volume 94.7 Mean Corpuscular Hemoglobin 28.7 L Mean Corpuscular Hemoglobin Concent 30.3 L Red Cell Distribution Width 13.4 Platelet Count 271 Mean Platelet Volume 10.5 H Immature Granulocytes % 0.400 Neutrophils % 65.6 Lymphocytes % 22.9 Monocytes % 10.7 Eosinophils % 0.1 Basophils % 0.3 Nucleated Red Blood Cells % 0.0 Immature Granulocytes # 0.030 Neutrophils # 5.2 Lymphocytes # 1.8 Monocytes # 0.9 Eosinophils # 0.0 Basophils # 0.0 Nucleated Red Blood Cells # 0.0 Sodium Level 138 Potassium Level 4.6 Chloride Level 109 Carbon Dioxide Level 23 Anion Gap 6 Blood Urea Nitrogen 50 H Creatinine 1.79 H Est Glomerular Filtrat Rate mL/min Glucose Level 95 # Calcium Level 7.9 L Medications Medication Current Medications Albuterol (Ventolin Hfa) 2 puff Q4H RESP THERAPY PRN INH WHEEZING AND SOB Last administered on 11/23/18 14:56; Admin Dose 2 PUFF; Start 11/22/18 at 18:30 Atorvastatin Calcium (Lipitor) 10 mg QHS PO Last administered on 12/02/18 21:00; Admin Dose 10 MG; Start 11/22/18 at 21:00 Clopidogrel Bisulfate (plaVIX) 75 mg DAILY PO Last administered on 12/03/18 08:28; Admin Dose 75 MG; Start 11/23/18 at 09:00 Ferrous Sulfate (Ferrous Sulfate (Ec)) 325 mg DAILY PO Last administered on 12/03/18 08:28; Admin Dose 325 MG; Start 11/23/18 at 09:00 Levothyroxine Sodium (Synthroid) 25 mcg BEFORE BREAKFAST PO Last administered on 12/03/18 05:57; Admin Dose 25 MCG; Start 11/23/18 at 07:00 Pantoprazole (Protonix Tab) 40 mg AC BREAKFAST PO Last administered on 12/03/18 05:57; Admin Dose 40 MG; Start 11/23/18 at 07:00 IV Flush (NS 3 ml) 3 ml PER PROTOCOL IV ; Start 11/22/18 at 20:30 Ondansetron HCl (Zofran Inj) 4 mg Q6H PRN IV NAUSEA/VOMITING; Start 11/22/18 at 20:30 Aspirin (Aspirin) 81 mg DAILY PO Last administered on 12/03/18 08:30; Admin Dose 81 MG; Start 11/23/18 at 09:00 Nitroglycerin (Nitroglycerin (Sl Tab) 0.4 Mg) 1 tab Q5M PRN SL .CHEST PAIN; Start 11/22/18 at 20:30 Acetaminophen (Tylenol Tab) 650 mg Q6H PRN PO .PAIN 1-3 OR TEMP Last administered on 12/02/18 21:02; Admin Dose 650 MG; Start 11/22/18 at 20:30 Acetaminophen/ Hydrocodone Bitart ([place] (5/325)) 1 tab Q6H PRN PO .PAIN 4-6 Last administered on 11/23/18 16:54; Admin Dose 1 TAB; Start 11/22/18 at 20:30 Morphine Sulfate (morphine) 2 mg Q4H PRN IV .PAIN 7-10 Last administered on 11/23/18 14:59; Admin Dose 2 MG; Start 11/22/18 at 20:30 Zolpidem Tartrate (Ambien) 5 mg QHS PRN PO .INSOMNIA Last administered on 21:02; Admin Dose 5 MG; Start 11/22/18 at 20:30 Docusate Sodium (Colace) 100 mg Q12H PRN PO .CONSTIPATION; Start 11/22/18 at 20:30 Magnesium Hydroxide (Milk Of Mag) 30 ml DAILY PRN PO .CONSTIPATION; Start 11/22/18 at 20:30 Famotidine (Pepcid) 20 mg Q24H PO Last administered on 12/02/18 21:00; Admin Dose 20 MG; Start 11/22/18 at 21:00 Multivit/Ca Carb/ B Cmplx/FA/Prenat (Wen-Justo) 1 tab DAILY PO Last administered on 12/03/18 08:28; Admin Dose 1 TAB; Start 11/23/18 at 09:00 Isosorbide Dinitrate (Isordil) 40 mg TID PO Last administered on 12/03/18 08:29; Admin Dose 40 MG; Start 11/23/18 at 09:00 Fluticasone/ Vilanterol (Breo Ellipta 100-25 Mcg Inh) 1 inh DAILY INH Last administered on 12/03/18 08:27; Admin Dose 1 INH; Start 11/23/18 at 10:00 Nifedipine (Procardia Xl) 60 mg BID PO Last administered on 12/03/18 08:29; Admin Dose 60 MG; Start 11/23/18 at 21:00 Hydralazine HCl (Apresoline) 100 mg TID PO Last administered on 12/03/18 08:27; Admin Dose 100 MG; Start 11/28/18 at 21:00 Carvedilol (Coreg) 12.5 mg BID PO Last administered on 12/03/18 08:28; Admin Dose 12.5 MG; Start 11/28/18 at 21:00 Albuterol/ Ipratropium (Duoneb) 3 ml Q6H RESP THERAPY HHN Last administered on 12/03/18 07:47; Admin Dose 3 ML; Start 11/30/18 at 14:00 Azithromycin (Zithromax) 250 mg DAILY PO Last administered on 6/21/19at 08:29; Admin Dose 250 MG; Start 12/01/18 at 09:00; Stop 12/04/18 at 09:01 RESHMA JIMÉNEZ Dec 03, 2018 10:50
--- NOTE | 2018-12-03 10:57 | CONS ---
Assessment/Plan Assessment/Plan Hospital Course (Demo Recall) IMp: 1.chest pain-neg trop x 3/NL EF by echo 07/03. NO ischemia by stress and normal EF 2.HTN-improved on current regimen 3.renal failure-acute on chronic 4.HYpothyroid 5. PAD Recc: -Tele -Contineu procardia/coreg/hydralazine/isordil with well controlled BP -Contineu asa/plavix -now s/p course of steroids with significant improvement -contnue abx's -resume low dose lasix and follow volume status to maintain euvolemia -ok for d.c planning from cardiac standpoint Consultation Date/Type/Reason Admit Date/Time Nov 22, 2018 at 14:27 Initial Consult Date 11/23/18 Type of Consult Cardiology Reason for Consultation CHF Requesting Provider: YOSHI GARG MD Date/Time of Note DATE: 12/03/18 TIME: 10:53 Exam/Review of Systems Vital Signs Vitals Vital Signs Date Temp Pulse Resp B/P (MAP) Pulse Ox O2 O2 Flow FiO2 Time Delivery Rate 12/03/18 69 08:51 12/03/18 95 Nasal 2.0 07:47 Cannula 12/03/18 98.0 162/80 07:28 (107) Intake and Output 12/02/18 12/02/18 12/03/18 1515:00 23:00 07:00 IntakeIntake Total 320 ml 350 ml BalanceBalance 320 ml 350 ml Exam Exam Review of Systems: CONSTITUTIONAL: No fevers, chills. PULMONARY: No sob CARDIOVASCULAR: No chest pain/palpitations GASTROINTESTINAL: No nausea/vomiting. GENITOURINARY: No hematuria/dysuria. MUSCULOSKELETAL: No myagias/arthalgias. PSYCHIATRIC: The patient denies depression. NEUROLOGIC: No weakness Constitutional: alert Psych: no complaints Head: normocephalic ENMT: mucosa pink and moist Neck: supple, jvd (9 cm water) Respiratory: diminished breath sounds Cardiovascular: regular rate and rhythm Gastrointestinal: soft, non-tender Musculoskeletal: muscle tone (normal) Extremities: edema (trace/B) Neurological: other (No focal deficits) Labs Result Diagram: 12/03/18 0458 12/03/18 0458 Results 24hrs Laboratory Tests Test 12/03/18 04:58 White Blood Count 8.0 Red Blood Count 2.82 L Hemoglobin 8.1 L Hematocrit 26.7 L Mean Corpuscular Volume 94.7 Mean Corpuscular Hemoglobin 28.7 L Mean Corpuscular Hemoglobin Concent 30.3 L Red Cell Distribution Width 13.4 Platelet Count 271 Mean Platelet Volume 10.5 H Immature Granulocytes % 0.400 Neutrophils % 65.6 Lymphocytes % 22.9 Monocytes % 10.7 Eosinophils % 0.1 Basophils % 0.3 Nucleated Red Blood Cells % 0.0 Immature Granulocytes # 0.030 Neutrophils # 5.2 Lymphocytes # 1.8 Monocytes # 0.9 Eosinophils # 0.0 Basophils # 0.0 Nucleated Red Blood Cells # 0.0 Sodium Level 138 Potassium Level 4.6 Chloride Level 109 Carbon Dioxide Level 23 Anion Gap 6 Blood Urea Nitrogen 50 H Creatinine 1.79 H Est Glomerular Filtrat Rate mL/min Glucose Level 95 # Calcium Level 7.9 L Medications Medications Current Medications Albuterol (Ventolin Hfa) 2 puff Q4H RESP THERAPY PRN INH WHEEZING AND SOB Last administered on 11/23/18 14:56; Admin Dose 2 PUFF; Start 11/22/18 at 18:30 Atorvastatin Calcium (Lipitor) 10 mg QHS PO Last administered on 12/02/18 21:00; Admin Dose 10 MG; Start 11/22/18 at 21:00 Clopidogrel Bisulfate (plaVIX) 75 mg DAILY PO Last administered on 12/03/18 08:28; Admin Dose 75 MG; Start 11/23/18 at 09:00 Ferrous Sulfate (Ferrous Sulfate (Ec)) 325 mg DAILY PO Last administered on 12/03/18 08:28; Admin Dose 325 MG; Start 11/23/18 at 09:00 Levothyroxine Sodium (Synthroid) 25 mcg BEFORE BREAKFAST PO Last administered on 12/03/18 05:57; Admin Dose 25 MCG; Start 11/23/18 at 07:00 Pantoprazole (Protonix Tab) 40 mg AC BREAKFAST PO Last administered on 12/03/18 05:57; Admin Dose 40 MG; Start 11/23/18 at 07:00 IV Flush (NS 3 ml) 3 ml PER PROTOCOL IV ; Start 11/22/18 at 20:30 Ondansetron HCl (Zofran Inj) 4 mg Q6H PRN IV NAUSEA/VOMITING; Start 11/22/18 at 20:30 Aspirin (Aspirin) 81 mg DAILY PO Last administered on 12/03/18 08:30; Admin Dose 81 MG; Start 11/23/18 at 09:00 Nitroglycerin (Nitroglycerin (Sl Tab) 0.4 Mg) 1 tab Q5M PRN SL .CHEST PAIN; Start 11/22/18 at 20:30 Acetaminophen (Tylenol Tab) 650 mg Q6H PRN PO .PAIN 1-3 OR TEMP Last administered on 12/02/18 21:02; Admin Dose 650 MG; Start 11/22/18 at 20:30 Acetaminophen/ Hydrocodone Bitart ([place] (5/325)) 1 tab Q6H PRN PO .PAIN 4-6 Last administered on 11/23/18 16:54; Admin Dose 1 TAB; Start 11/22/18 at 20:30 Morphine Sulfate (morphine) 2 mg Q4H PRN IV .PAIN 7-10 Last administered on 11/23/18 14:59; Admin Dose 2 MG; Start 11/22/18 at 20:30 Zolpidem Tartrate (Ambien) 5 mg QHS PRN PO .INSOMNIA Last administered on 12/02/18 21:02; Admin Dose 5 MG; Start 11/22/18 at 20:30 Docusate Sodium (Colace) 100 mg Q12H PRN PO .CONSTIPATION; Start 11/22/18 at 20:30 Magnesium Hydroxide (Milk Of Mag) 30 ml DAILY PRN PO .CONSTIPATION; Start 11/22/18 at 20:30 Famotidine (Pepcid) 20 mg Q24H PO Last administered on 12/02/18 21:00; Admin Dose 20 MG; Start 11/22/18 at 21:00 Multivit/Ca Carb/ B Cmplx/FA/Prenat (Wen-Justo) 1 tab DAILY PO Last administered on 12/03/18 08:28; Admin Dose 1 TAB; Start 11/23/18 at 09:00 Isosorbide Dinitrate (Isordil) 40 mg TID PO Last administered on 12/03/18 08:29; Admin Dose 40 MG; Start 11/23/18 at 09:00 Fluticasone/ Vilanterol (Breo Ellipta 100-25 Mcg Inh) 1 inh DAILY INH Last administered on 12/03/18 08:27; Admin Dose 1 INH; Start 11/23/18 at 10:00 Nifedipine (Procardia Xl) 60 mg BID PO Last administered on 12/03/18 08:29; Admin Dose 60 MG; Start 11/23/18 at 21:00 Hydralazine HCl (Apresoline) 100 mg TID PO Last administered on 12/03/18 08:27; Admin Dose 100 MG; Start 11/28/18 at 21:00 Carvedilol (Coreg) 12.5 mg BID PO Last administered on 12/03/18 08:28; Admin Dose 12.5 MG; Start 11/28/18 at 21:00 Albuterol/ Ipratropium (Duoneb) 3 ml Q6H RESP THERAPY HHN Last administered on 12/03/18 07:47; Admin Dose 3 ML; Start 11/30/18 at 14:00 Azithromycin (Zithromax) 250 mg DAILY PO Last administered on 12/03/18 08:29; Admin Dose 250 MG; Start 12/01/18 at 09:00; Stop 12/04/18 at 09:01 KERMIT DONOHUE Dec 03, 2018 10:57
--- NOTE | 2018-12-03 16:27 | CONS ---
Assessment/Plan Assessment/Plan Assessment/Plan (Daily) 1. acute Kidney injury on CKD III due to hemodynamics and prerenal azotemia 2. 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 H/o HL 6. H/o Hypothyroidism 7. H/o PAD Plan: creatinine trended down - Lasix dcd Procardia Xl for HTN control pt previously had a full CKD work up - no need ot repeat it will continue to follow up Consultation Date/Type/Reason Admit Date/Time Nov 22, 2018 at 14:27 Initial Consult Date 11/30/18 Type of Consult NEPHROLOGY Requesting Provider: YOSHI GARG MD Date/Time of Note DATE: 12/03/18 TIME: 16:27 Exam/Review of Systems Exam Vitals Vital Signs Date Temp Pulse Resp B/P (MAP) Pulse Ox O2 O2 Flow FiO2 Time Delivery Rate 12/03/18 69 16:14 12/03/18 98.0 20 140/67 96 Room Air 15:19 (91) 12/03/18 2.0 13:26 Intake and Output 12/02/18 12/02/18 12/03/18 1515:00 23:00 07:00 IntakeIntake Total 320 ml 350 ml BalanceBalance 320 ml 350 ml Results Result Diagram: 12/03/18 0458 12/03/18 0458 Results 24hrs Laboratory Tests Test 12/03/18 04:58 White Blood Count 8.0 Red Blood Count 2.82 L Hemoglobin 8.1 L Hematocrit 26.7 L Mean Corpuscular Volume 94.7 Mean Corpuscular Hemoglobin 28.7 L Mean Corpuscular Hemoglobin Concent 30.3 L Red Cell Distribution Width 13.4 Platelet Count 271 Mean Platelet Volume 10.5 H Immature Granulocytes % 0.400 Neutrophils % 65.6 Lymphocytes % 22.9 Monocytes % 10.7 Eosinophils % 0.1 Basophils % 0.3 Nucleated Red Blood Cells % 0.0 Immature Granulocytes # 0.030 Neutrophils # 5.2 Lymphocytes # 1.8 Monocytes # 0.9 Eosinophils # 0.0 Basophils # 0.0 Nucleated Red Blood Cells # 0.0 Sodium Level 138 Potassium Level 4.6 Chloride Level 109 Carbon Dioxide Level 23 Anion Gap 6 Blood Urea Nitrogen 50 H Creatinine 1.79 H Est Glomerular Filtrat Rate mL/min Glucose Level 95 # Calcium Level 7.9 L Medications Medication Current Medications Albuterol (Ventolin Hfa) 2 puff Q4H RESP THERAPY PRN INH WHEEZING AND SOB Last administered on 11/23/18 14:56; Admin Dose 2 PUFF; Start 11/22/18 at 18:30 Atorvastatin Calcium (Lipitor) 10 mg QHS PO Last administered on 12/02/18 21:00; Admin Dose 10 MG; Start 11/22/18 at 21:00 Clopidogrel Bisulfate (plaVIX) 75 mg DAILY PO Last administered on 12/03/18 08:28; Admin Dose 75 MG; Start 11/23/18 at 09:00 Ferrous Sulfate (Ferrous Sulfate (Ec)) 325 mg DAILY PO Last administered on 12/03/18 08:28; Admin Dose 325 MG; Start 11/23/18 at 09:00 Levothyroxine Sodium (Synthroid) 25 mcg BEFORE BREAKFAST PO Last administered on 12/03/18 05:57; Admin Dose 25 MCG; Start 11/23/18 at 07:00 Pantoprazole (Protonix Tab) 40 mg AC BREAKFAST PO Last administered on 12/03/18 05:57; Admin Dose 40 MG; Start 11/23/18 at 07:00 IV Flush (NS 3 ml) 3 ml PER PROTOCOL IV ; Start 11/22/18 at 20:30 Ondansetron HCl (Zofran Inj) 4 mg Q6H PRN IV NAUSEA/VOMITING; Start 11/22/18 at 20:30 Aspirin (Aspirin) 81 mg DAILY PO Last administered on 12/03/18 08:30; Admin Dose 81 MG; Start 11/23/18 at 09:00 Nitroglycerin (Nitroglycerin (Sl Tab) 0.4 Mg) 1 tab Q5M PRN SL .CHEST PAIN; Start 11/22/18 at 20:30 Acetaminophen (Tylenol Tab) 650 mg Q6H PRN PO .PAIN 1-3 OR TEMP Last administered on 12/02/18 21:02; Admin Dose 650 MG; Start 11/22/18 at 20:30 Acetaminophen/ Hydrocodone Bitart ([place] (5/325)) 1 tab Q6H PRN PO .PAIN 4-6 Last administered on 11/23/18 16:54; Admin Dose 1 TAB; Start 11/22/18 at 20:30 Morphine Sulfate (morphine) 2 mg Q4H PRN IV .PAIN 7-10 Last administered on 11/23/18 14:59; Admin Dose 2 MG; Start 11/22/18 at 20:30 Zolpidem Tartrate (Ambien) 5 mg QHS PRN PO .INSOMNIA Last administered on 12/02/18 21:02; Admin Dose 5 MG; Start 11/22/18 at 20:30 Docusate Sodium (Colace) 100 mg Q12H PRN PO .CONSTIPATION; Start 11/22/18 at 20 :30 Magnesium Hydroxide (Milk Of Mag) 30 ml DAILY PRN PO .CONSTIPATION; Start 11/22/18 at 20:30 Famotidine (Pepcid) 20 mg Q24H PO Last administered on 12/02/18 21:00; Admin Dose 20 MG; Start 11/22/18 at 21:00 Multivit/Ca Carb/ B Cmplx/FA/Prenat (Wen-Justo) 1 tab DAILY PO Last administered on 12/03/18 08:28; Admin Dose 1 TAB; Start 11/23/18 at 09:00 Isosorbide Dinitrate (Isordil) 40 mg TID PO Last administered on 12/03/18 13:24; Admin Dose 40 MG; Start 11/23/18 at 09:00 Fluticasone/ Vilanterol (Breo Ellipta 100-25 Mcg Inh) 1 inh DAILY INH Last administered on 12/03/18 08:27; Admin Dose 1 INH; Start 11/23/18 at 10:00 Nifedipine (Procardia Xl) 60 mg BID PO Last administered on 12/03/18 08:29; Admin Dose 60 MG; Start 11/23/18 at 21:00 Hydralazine HCl (Apresoline) 100 mg TID PO Last administered on 12/03/18 13:24; Admin Dose 100 MG; Start 11/28/18 at 21:00 Carvedilol (Coreg) 12.5 mg BID PO Last administered on 12/03/18 08:28; Admin Dose 12.5 MG; Start 11/28/18 at 21:00 Albuterol/ Ipratropium (Duoneb) 3 ml Q6H RESP THERAPY HHN Last administered on 6/21/19at 13:26; Admin Dose 3 ML; Start 11/30/18 at 14:00 Azithromycin (Zithromax) 250 mg DAILY PO Last administered on 12/03/18at 08:29; Admin Dose 250 MG; Start 12/01/18 at 09:00; Stop 12/04/18 at 09:01 Furosemide (Lasix) 20 mg DAILY PO ; Start 12/04/18 at 09:00 SAMANTHA AMES MD Dec 03, 2018 16:27
[2018-12-03] MEDS: ATORVASTATIN 10 MG TAB PO SCH (20:20)
[2018-12-03] MEDS: FAMOTIDINE 20 MG TAB PO SCH (20:20)
[2018-12-03] MEDS ORDERED: EPOETIN ALFA-EPBX (NON-ESRD 10,000 UNIT/ML VIAL SC ONE (20:30)
[2018-12-04] VITALS (10 sets, daily range): BP systolic 113–132; BP diastolic 52–60; PULSE 69–78; RESP 16–17
[2018-12-04] MEDS: ALBUTEROL/IPRATROPIUM (NEB) 3 ML AMP HHN SCH ×4 (02:07→19:05)
[2018-12-04] MEDS: PANTOPRAZOLE (EC) 40 MG TAB PO SCH (06:00)
[2018-12-04] MEDS: LEVOTHYROXINE 25 MCG TAB PO SCH (06:00)
[2018-12-04] MEDS: AZITHROMYCIN 250 MG TAB PO SCH (09:06)
[2018-12-04] MEDS: FERROUS SULFATE (EC) 325 MG TAB PO SCH (09:06)
[2018-12-04] MEDS: ASPIRIN 81 MG TAB PO SCH (09:07)
[2018-12-04] MEDS: ISOSORBIDE DINITRATE 20 MG TAB PO SCH ×3 (09:07→20:14)
[2018-12-04] MEDS: MULTIVIT/CA CARB/B CMPLX/FA TAB PO SCH (09:07)
[2018-12-04] MEDS: NIFEdipine (XL) 60 MG TAB PO SCH ×2 (09:07→20:16)
[2018-12-04] MEDS: FUROSEMIDE 20 MG TAB PO SCH (09:07)
[2018-12-04] MEDS: CLOPIDOGREL 75 MG TAB PO SCH (09:07)
[2018-12-04] MEDS: FLUTICASONE/VILANTEROL 100-25 INH SCH (09:08)
--- NOTE | 2018-12-04 09:14 | PN ---
Date/Time of Note Date/Time of Note DATE: 12/04/18 TIME: 09:14 Assessment/Plan VTE Prophylaxis Risk score (from Nsg)>0 risk: 3 SCD applied (from Nsg): Yes Lines/Catheters IV Catheter Type (from Nrsg): Peripheral IV Urinary Cath still in place: No Assessment/Plan Assessment/Plan -Acute bronchitis with asthma exacerbation, Dr. Chun is following in pulmonology consultation. Continue DuoNeb and Zithromax. -Chest pain, rule out acute coronary syndrome. cardiac enzymes negative x3, stress test is negative for ischemia, continue aspirin, Plavix, nitroglycerin, morphine as needed for pain. Dr. Wren is following in cardiology consultation. -S/p hypertensive emergency. S/p nitroglycerin gtt. Continue Coreg and Procardia. -Congestive heart failure, Lasix is held by a prop attendant. 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 -Dyslipidemia. -Hypothyroidism, continue levothyroxine -Anemia, multifactorial, iron deficiency anemia and of chronic disease -History of total knee replacement -PVD -Obesity with BMI of 38.1. Further recommendations based on clinical course. Plan of care discussed with Dr. Segovia. Result Diagram: 12/03/1845712/03/18457 Exam/Review of Systems Exam Vitals Vital Signs Date Temp Pulse Resp B/P (MAP) Pulse Ox O2 O2 Flow FiO2 Time Delivery Rate 12/04/18 Nasal 2.0 07:42 Cannula 12/04/18 97.5 75 17 116/52 96 07:33 (73) Intake and Output 12/03/18 12/03/18 12/04/18 1515:00 23:00 07:00 IntakeIntake Total 590 ml OutputOutput Total 3 ml BalanceBalance 587 ml Medications Medication Current Medications Albuterol (Ventolin Hfa) 2 puff Q4H RESP THERAPY PRN INH WHEEZING AND SOB Last administered on 11/23/18at 14:56; Admin Dose 2 PUFF; Start 11/22/18 at 18:30 Atorvastatin Calcium (Lipitor) 10 mg QHS PO Last administered on 12/03/18at 20:20; Admin Dose 10 MG; Start 11/22/18 at 21:00 Clopidogrel Bisulfate (plaVIX) 75 mg DAILY PO Last administered on 12/04/18at 09:07; Admin Dose 75 MG; Start 11/23/18 at 09:00 Ferrous Sulfate (Ferrous Sulfate (Ec)) 325 mg DAILY PO Last administered on 12/04/18 09:06; Admin Dose 325 MG; Start 11/23/18 at 09:00 Levothyroxine Sodium (Synthroid) 25 mcg BEFORE BREAKFAST PO Last administered on 12/04/18 06:00; Admin Dose 25 MCG; Start 11/23/18 at 07:00 Pantoprazole (Protonix Tab) 40 mg AC BREAKFAST PO Last administered on 12/04/18 06:00; Admin Dose 40 MG; Start 11/23/18 at 07:00 IV Flush (NS 3 ml) 3 ml PER PROTOCOL IV ; Start 11/22/18 at 20:30 Ondansetron HCl (Zofran Inj) 4 mg Q6H PRN IV NAUSEA/VOMITING; Start 11/22/18 at 20:30 Aspirin (Aspirin) 81 mg DAILY PO Last administered on 12/04/18 09:07; Admin Dose 81 MG; Start 11/23/18 at 09:00 Nitroglycerin (Nitroglycerin (Sl Tab) 0.4 Mg) 1 tab Q5M PRN SL .CHEST PAIN; Start 11/22/18 at 20:30 Acetaminophen (Tylenol Tab) 650 mg Q6H PRN PO .PAIN 1-3 OR TEMP Last administered on 12/02/18 21:02; Admin Dose 650 MG; Start 11/22/18 at 20:30 Acetaminophen/ Hydrocodone Bitart ([place] (5/325)) 1 tab Q6H PRN PO .PAIN 4-6 Last administered on 11/23/18 16:54; Admin Dose 1 TAB; Start 11/22/18 at 20:30 Morphine Sulfate (morphine) 2 mg Q4H PRN IV .PAIN 7-10 Last administered on 11/23/18 14:59; Admin Dose 2 MG; Start 11/22/18 at 20:30 Zolpidem Tartrate (Ambien) 5 mg QHS PRN PO .INSOMNIA Last administered on 12/02/18 21:02; Admin Dose 5 MG; Start 11/22/18 at 20:30 Docusate Sodium (Colace) 100 mg Q12H PRN PO .CONSTIPATION; Start 11/22/18 at 20:30 Magnesium Hydroxide (Milk Of Mag) 30 ml DAILY PRN PO .CONSTIPATION; Start 11/22/18 at 20:30 Famotidine (Pepcid) 20 mg Q24H PO Last administered on 12/03/18 20:20; Admin Dose 20 MG; Start 11/22/18 at 21:00 Multivit/Ca Carb/ B Cmplx/FA/Prenat (Wen-Justo) 1 tab DAILY PO Last administered on 12/04/18 09:07; Admin Dose 1 TAB; Start 11/23/18 at 09:00 Isosorbide Dinitrate (Isordil) 40 mg TID PO Last administered on 12/04/18 09:07; Admin Dose 40 MG; Start 11/23/18 at 09:00 Fluticasone/ Vilanterol (Breo Ellipta 100-25 Mcg Inh) 1 inh DAILY INH Last ad ministered on 12/04/18 09:08; Admin Dose 1 INH; Start 11/23/18 at 10:00 Nifedipine (Procardia Xl) 60 mg BID PO Last administered on 12/04/18 09:07; Admin Dose 60 MG; Start 11/23/18 at 21:00 Hydralazine HCl (Apresoline) 100 mg TID PO Last administered on 12/04/18 09:06; Admin Dose 100 MG; Start 11/28/18 at 21:00 Carvedilol (Coreg) 12.5 mg BID PO Last administered on 12/04/18 09:06; Admin Dose 12.5 MG; Start 11/28/18 at 21:00 Albuterol/ Ipratropium (Duoneb) 3 ml Q6H RESP THERAPY HHN Last administered on 12/04/18 02:07; Admin Dose 3 ML; Start 11/30/18 at 14:00 Furosemide (Lasix) 20 mg DAILY PO Last administered on 12/04/18 09:07; Admin Dose 20 MG; Start 12/04/18 at 09:00 AMANDA DORSEY Dec 04, 2018 09:14
--- NOTE | 2018-12-04 12:49 | CONS ---
Consult Date/Type/Reason Admit Date/Time Nov 22, 2018 at 14:27 Initial Consult Date 11/26/18 Requesting Provider: YOSHI GARG MD Date/Time of Note DATE: 12/04/18 TIME: 12:47 Subjective Pt much betternow - decreased edema - decreased SOB - con't med rx ROS: No fever, no chills, no nausea, no vomiting, no diarrhea/constipation No recent weight changes No chest pain, no PND, no orthopnea - mild SOB No dizziness, blurred vision No thirst, no heat or cold intolerance Objective Vitals Vital Signs Date Temp Pulse Resp B/P (MAP) Pulse Ox O2 O2 Flow FiO2 Time Delivery Rate 12/04/18 98.9 74 16 132/60 95 11:30 (84) 12/04/18 Nasal 2.0 09:36 Cannula Intake and Output 12/03/18 12/03/18 12/04/18 1515:00 23:00 07:00 IntakeIntake Total 590 ml OutputOutput Total 3 ml BalanceBalance 587 ml Exam General: WN/WD/NAD, AOx 3 HEENT: Unicetric/atraumatic/EOMI ( follows commands) NECK: JVD elevated, no thyromegaly Lymph: no lymphadenopathy HEART: regular with no S3, II/ systolic murmur at apex, PMI L LUNGS: Coarse sounds ABD: soft, NT, ND, +BS : Intact Neuro: non focal SKIN: chronic changes EXT: 1+ edema Results/Medications Result Diagram: 12/04/1848 12/04/18 0948 Results 24 hrs Laboratory Tests Test 12/04/18 09:48 White Blood Count 5.3 # Red Blood Count 3.13 L Hemoglobin 9.1 L Hematocrit 29.8 L Mean Corpuscular Volume 95.2 Mean Corpuscular Hemoglobin 29.1 Mean Corpuscular Hemoglobin Concent 30.5 L Red Cell Distribution Width 13.4 Platelet Count 305 Mean Platelet Volume 10.6 H Immature Granulocytes % 0.400 Neutrophils % 50.6 Lymphocytes % 30.2 Monocytes % 15.7 H Eosinophils % 2.3 Basophils % 0.8 Nucleated Red Blood Cells % 0.0 Immature Granulocytes # 0.020 Neutrophils # 2.7 Lymphocytes # 1.6 Monocytes # 0.8 Eosinophils # 0.1 Basophils # 0.0 Nucleated Red Blood Cells # 0.0 Sodium Level 139 Potassium Level 4.4 Chloride Level 108 Carbon Dioxide Level 23 Anion Gap 8 Blood Urea Nitrogen 48 H Creatinine 1.73 H Est Glomerular Filtrat Rate mL/min Glucose Level 139 # Calcium Level 8.0 L Home Meds Reported Medications Brinzolamide-Brimonidine (Simbrinza 1%-0.2% Oph) 1%-0.2% - 8 Ml Drops.susp, 1 DROP BOTH EYES TID, EA 11/22/18 Albuterol Sulfate* (Proair HFA*) 8.5 Gm Hfa.aer.ad, 2 PUFF INH Q4H PRN for WHEEZING AND SOB, #1 INHALER 11/22/18 Pantoprazole* (Pantoprazole*) 40 Mg Tablet.dr, 40 MG PO AC BREAKFAST, TAB 11/22/18 Nifedipine* (Nifedipine ER*) 30 Mg Tablet.sa, 30 MG PO DAILY, TAB.SA 11/22/18 [Nephro-Justo] No Conflict Check, 1 TAB PO DAILY PRN for DIRECTED 11/22/18 Losartan Potassium* (Losartan Potassium*) 50 Mg Tablet, 50 MG PO DAILY, TAB 11/22/18 Levothyroxine Sodium* (Levothyroxine Sodium*) 25 Mcg Tablet, 25 MCG PO BEFORE BREAKFAST, #30 TAB 11/22/18 Isosorbide Dinitrate* (Isordil*) 40 Mg Tablet, 40 MG PO TID, TAB 11/22/18 Hydralazine Hcl* (Hydralazine Hcl*) 100 Mg Tablet, 100 MG PO BID, #90 TAB 11/22/18 Furosemide* (Furosemide*) 40 Mg Tablet, 40 MG PO DAILY, TAB 11/22/18 Ferrous Sulfate* (Ferrous Sulfate*) 325 Mg Tabec, 325 MG PO DAILY, TAB 11/22/18 Clopidogrel Bisulfate* (Clopidogrel Bisulfate*) 75 Mg Tablet, 75 MG PO DAILY, #30 TAB 11/22/18 Carvedilol* (Carvedilol*) 6.25 Mg Tablet, 6.25 MG PO BID, #60 TAB 11/22/18 Capsaicin (Capsaicin) 42.5 Gm Cream.gm., 1 APPLIC TOP QID, #1 TUB 11/22/18 Atorvastatin Calcium (Atorvastatin Calcium) 10 Mg Tablet, 10 MG PO QHS, #30 TAB 11/22/18 Salmeterol Xinaf-Fluticasone* (Advair*) 100/50 Diskus Inhaler, 1 INH INHALATION BID, #1 INHALER 11/22/18 Medications Current Medications Albuterol (Ventolin Hfa) 2 puff Q4H RESP THERAPY PRN INH WHEEZING AND SOB Last administered on 11/23/18at 14:56; Admin Dose 2 PUFF; Start 11/22/18 at 18:30 Atorvastatin Calcium (Lipitor) 10 mg QHS PO Last administered on 12/03/18 20:20; Admin Dose 10 MG; Start 11/22/18 at 21:00 Clopidogrel Bisulfate (plaVIX) 75 mg DAILY PO Last administered on 12/04/18 09:07; Admin Dose 75 MG; Start 11/23/18 at 09:00 Ferrous Sulfate (Ferrous Sulfate (Ec)) 325 mg DAILY PO Last administered on 12/04/18 09:06; Admin Dose 325 MG; Start 11/23/18 at 09:00 Levothyroxine Sodium (Synthroid) 25 mcg BEFORE BREAKFAST PO Last administered on 12/04/18 06:00; Admin Dose 25 MCG; Start 11/23/18 at 07:00 Pantoprazole (Protonix Tab) 40 mg AC BREAKFAST PO Last administered on 12/04/18 06:00; Admin Dose 40 MG; Start 11/23/18 at 07:00 IV Flush (NS 3 ml) 3 ml PER PROTOCOL IV ; Start 11/22/18 at 20:30 Ondansetron HCl (Zofran Inj) 4 mg Q6H PRN IV NAUSEA/VOMITING; Start 11/22/18 at 20:30 Aspirin (Aspirin) 81 mg DAILY PO Last administered on 12/04/18 09:07; Admin Dose 81 MG; Start 11/23/18 at 09:00 Nitroglycerin (Nitroglycerin (Sl Tab) 0.4 Mg) 1 tab Q5M PRN SL .CHEST PAIN; Start 11/22/18 at 20:30 Acetaminophen (Tylenol Tab) 650 mg Q6H PRN PO .PAIN 1-3 OR TEMP Last administered on 12/02/18at 21:02; Admin Dose 650 MG; Start 11/22/18 at 20:30 Acetaminophen/ Hydrocodone Bitart ([place] (5/325)) 1 tab Q6H PRN PO .PAIN 4-6 Last administered on 11/23/18 16:54; Admin Dose 1 TAB; Start 11/22/18 at 20:30 Morphine Sulfate (morphine) 2 mg Q4H PRN IV .PAIN 7-10 Last administered on 11/23/18 14:59; Admin Dose 2 MG; Start 11/22/18 at 20:30 Zolpidem Tartrate (Ambien) 5 mg QHS PRN PO .INSOMNIA Last administered on 12/02/18 21:02; Admin Dose 5 MG; Start 11/22/18 at 20:30 Docusate Sodium (Colace) 100 mg Q12H PRN PO .CONSTIPATION; Start 11/22/18 at 20:30 Magnesium Hydroxide (Milk Of Mag) 30 ml DAILY PRN PO .CONSTIPATION; Start 11/22/18 at 20:30 Famotidine (Pepcid) 20 mg Q24H PO Last administered on 12/03/18 20:20; Admin Dose 20 MG; Start 11/22/18 at 21:00 Multivit/Ca Carb/ B Cmplx/FA/Prenat (Wen-Justo) 1 tab DAILY PO Last administered on 12/04/18 09:07; Admin Dose 1 TAB; Start 11/23/18 at 09:00 Isosorbide Dinitrate (Isordil) 40 mg TID PO Last administered on 12/04/18 12:30; Admin Dose 40 MG; Start 11/23/18 at 09:00 Fluticasone/ Vilanterol (Breo Ellipta 100-25 Mcg Inh) 1 inh DAILY INH Last administered on 12/04/18 09:08; Admin Dose 1 INH; Start 11/23/18 at 10:00 Nifedipine (Procardia Xl) 60 mg BID PO Last administered on 12/04/18 09:07; Admin Dose 60 MG; Start 11/23/18 at 21:00 Hydralazine HCl (Apresoline) 100 mg TID PO Last administered on 12/04/18 12:30; Admin Dose 100 MG; Start 11/28/18 at 21:00 Carvedilol (Coreg) 12.5 mg BID PO Last administered on 12/04/18 09:06; Admin Dose 12.5 MG; Start 11/28/18 at 21:00 Albuterol/ Ipratropium (Duoneb) 3 ml Q6H RESP THERAPY HHN Last administered on 12/04/18at 09:33; Admin Dose 3 ML; Start 11/30/18 at 14:00 Furosemide (Lasix) 20 mg DAILY PO Last administered on 12/04/18at 09:07; Admin Dose 20 MG; Start 12/04/18 at 09:00 Assessment/Plan Hospital Course (Demo Recall) 1.Chest pain-neg trop x 3/NL EF by echo 07/03. NO ischemia by stress and normal EF - no CP now - no focal ectopy on tele. NO intervention needed. 2.HTN-improved on current regimen - will monitor with increased Cr now at 1.73 - better overall. 3.renal failure-acute on chronic - renal team follows, avoid nephrotoxic meds - improved. 4.Hypothyroid - replaced. 5. PAD - con'r current therapy. 6. DD - acute on chronic - improved with Rx. ADONAY PATEL MD Dec 04, 2018 12:49
--- NOTE | 2018-12-04 15:03 | CONS ---
Assessment/Plan Assessment/Plan Assessment/Plan (Daily) 1. acute Kidney injury on CKD III due to hemodynamics and prerenal azotemia 2. 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 H/o HL 6. H/o Hypothyroidism 7. H/o PAD Plan: creatinine trended down - Lasix dcd Procardia Xl for HTN control pt previously had a full CKD work up - no need ot repeat it will continue to follow up Consultation Date/Type/Reason Admit Date/Time Nov 22, 2018 at 14:27 Initial Consult Date 11/30/18 Type of Consult NEPHROLOGY Requesting Provider: YOSHI GARG MD Date/Time of Note DATE: 12/04/18 TIME: 15:03 Exam/Review of Systems Exam Vitals Vital Signs Date Temp Pulse Resp B/P (MAP) Pulse Ox O2 O2 Flow FiO2 Time Delivery Rate 12/04/18 2.0 14:20 12/04/18 76 16 Nasal 14:19 Cannula 12/04/18 98.9 132/60 95 11:30 (84) Intake and Output 12/03/18 12/03/18 12/04/18 1515:00 23:00 07:00 IntakeIntake Total 590 ml OutputOutput Total 3 ml BalanceBalance 587 ml Results Result Diagram: 12/04/18 0948 12/04/18 0948 Results 24hrs Laboratory Tests Test 12/04/18 09:48 White Blood Count 5.3 # Red Blood Count 3.13 L Hemoglobin 9.1 L Hematocrit 29.8 L Mean Corpuscular Volume 95.2 Mean Corpuscular Hemoglobin 29.1 Mean Corpuscular Hemoglobin Concent 30.5 L Red Cell Distribution Width 13.4 Platelet Count 305 Mean Platelet Volume 10.6 H Immature Granulocytes % 0.400 Neutrophils % 50.6 Lymphocytes % 30.2 Monocytes % 15.7 H Eosinophils % 2.3 Basophils % 0.8 Nucleated Red Blood Cells % 0.0 Immature Granulocytes # 0.020 Neutrophils # 2.7 Lymphocytes # 1.6 Monocytes # 0.8 Eosinophils # 0.1 Basophils # 0.0 Nucleated Red Blood Cells # 0.0 Sodium Level 139 Potassium Level 4.4 Chloride Level 108 Carbon Dioxide Level 23 Anion Gap 8 Blood Urea Nitrogen 48 H Creatinine 1.73 H Est Glomerular Filtrat Rate mL/min Glucose Level 139 # Calcium Level 8.0 L Medications Medication Current Medications Albuterol (Ventolin Hfa) 2 puff Q4H RESP THERAPY PRN INH WHEEZING AND SOB Last administered on 11/23/18 14:56; Admin Dose 2 PUFF; Start 11/22/18 at 18:30 Atorvastatin Calcium (Lipitor) 10 mg QHS PO Last administered on 12/03/18 20:20; Admin Dose 10 MG; Start 11/22/18 at 21:00 Clopidogrel Bisulfate (plaVIX) 75 mg DAILY PO Last administered on 12/04/18 09:07; Admin Dose 75 MG; Start 11/23/18 at 09:00 Ferrous Sulfate (Ferrous Sulfate (Ec)) 325 mg DAILY PO Last administered on 12/04/18 09:06; Admin Dose 325 MG; Start 11/23/18 at 09:00 Levothyroxine Sodium (Synthroid) 25 mcg BEFORE BREAKFAST PO Last administered on 12/04/18 06:00; Admin Dose 25 MCG; Start 11/23/18 at 07:00 Pantoprazole (Protonix Tab) 40 mg AC BREAKFAST PO Last administered on 12/04/18 06:00; Admin Dose 40 MG; Start 11/23/18 at 07:00 IV Flush (NS 3 ml) 3 ml PER PROTOCOL IV ; Start 11/22/18 at 20:30 Ondansetron HCl (Zofran Inj) 4 mg Q6H PRN IV NAUSEA/VOMITING; Start 11/22/18 at 20:30 Aspirin (Aspirin) 81 mg DAILY PO Last administered on 12/04/18 09:07; Admin Dose 81 MG; Start 11/23/18 at 09:00 Nitroglycerin (Nitroglycerin (Sl Tab) 0.4 Mg) 1 tab Q5M PRN SL .CHEST PAIN; Start 11/22/18 at 20:30 Acetaminophen (Tylenol Tab) 650 mg Q6H PRN PO .PAIN 1-3 OR TEMP Last administered on 12/02/18 21:02; Admin Dose 650 MG; Start 11/22/18 at 20:30 Acetaminophen/ Hydrocodone Bitart ([place] (5/325)) 1 tab Q6H PRN PO .PAIN 4-6 Last administered on 11/23/18 16:54; Admin Dose 1 TAB; Start 11/22/18 at 20:30 Morphine Sulfate (morphine) 2 mg Q4H PRN IV .PAIN 7-10 Last administered on 11/23/18 14:59; Admin Dose 2 MG; Start 11/22/18 at 20:30 Zolpidem Tartrate (Ambien) 5 mg QHS PRN PO .INSOMNIA Last administered on 12/02/18 21:02; Admin Dose 5 MG; Start 11/22/18 at 20:30 Docusate Sodium (Colace) 100 mg Q12H PRN PO .CONSTIPATION; Start 11/22/18 at 20:30 Magnesium Hydroxide (Milk Of Mag) 30 ml DAILY PRN PO .CONSTIPATION; Start 11/13 at 20:30 Famotidine (Pepcid) 20 mg Q24H PO Last administered on 12/03/18 20:20; Admin Dose 20 MG; Start 11/22/18 at 21:00 Multivit/Ca Carb/ B Cmplx/FA/Prenat (Wen-Justo) 1 tab DAILY PO Last ad ministered on 12/04/18 09:07; Admin Dose 1 TAB; Start 11/23/18 at 09:00 Isosorbide Dinitrate (Isordil) 40 mg TID PO Last administered on 12/04/18 12:30; Admin Dose 40 MG; Start 11/23/18 at 09:00 Fluticasone/ Vilanterol (Breo Ellipta 100-25 Mcg Inh) 1 inh DAILY INH Last administered on 12/04/18 09:08; Admin Dose 1 INH; Start 11/23/18 at 10:00 Nifedipine (Procardia Xl) 60 mg BID PO Last administered on 12/04/18 09:07; Admin Dose 60 MG; Start 11/23/18 at 21:00 Hydralazine HCl (Apresoline) 100 mg TID PO Last administered on 12/04/18 12:30; Admin Dose 100 MG; Start 11/28/18 at 21:00 Carvedilol (Coreg) 12.5 mg BID PO Last administered on 12/04/18 09:06; Admin Dose 12.5 MG; Start 11/28/18 at 21:00 Albuterol/ Ipratropium (Duoneb) 3 ml Q6H RESP THERAPY HHN Last administered on 12/04/18at 14:16; Admin Dose 3 ML; Start 11/30/18 at 14:00 Furosemide (Lasix) 20 mg DAILY PO Last administered on 12/04/18at 09:07; Admin Dose 20 MG; Start 12/04/18 at 09:00 SAMANTHA AMES MD Dec 04, 2018 15:03
[2018-12-04] MEDS: ATORVASTATIN 10 MG TAB PO SCH (20:14)
[2018-12-04] MEDS: FAMOTIDINE 20 MG TAB PO SCH (20:14)
[2018-12-05] VITALS (12 sets, daily range): BP systolic 104–148; BP diastolic 50–69; PULSE 69–82; RESP 16–17
[2018-12-05] MEDS: ALBUTEROL/IPRATROPIUM (NEB) 3 ML AMP HHN SCH ×3 (01:12→14:10)
--- NOTE | 2018-12-05 04:25 | PN ---
DATE: 12/04/2018 SUBJECTIVE: Chart reviewed. The patient currently on 2 liter nasal cannula, saturating 96% and does not appear in acute distress. PHYSICAL EXAMINATION: VITAL SIGNS: Blood pressure 132/60, pulse 74, respirations 16, temperature 98.9. HEENT: Pupils are equal and react to light. NECK: Supple. No JVD noted, no cervical adenopathy noted. LUNGS: Fair breath sounds bilaterally. CARDIOVASCULAR: S1, S2 normal. ABDOMEN: Soft, nontender. No organomegaly or masses noted. EXTREMITIES: No clubbing or cyanosis noted. NEUROLOGIC: Awake and alert. FINAL DIAGNOSES: 1. Exacerbation of asthma, clinically doing better. 2. Chronic kidney disease. 3. History of hypertension. 4. History of hypothyroidism. 5. Peripheral vascular disease. PLAN: Consider discharge with inhaled steroid and long-acting bronchodilator along with rescue inhal ers. Dictated By: CHASIDY COTTER MD, MA/NTS Conf#: [id number] DID#: [id number] CC: YOSHI GARG MD;*EndCC*
[2018-12-05] MEDS: LEVOTHYROXINE 25 MCG TAB PO SCH (06:04)
[2018-12-05] MEDS: PANTOPRAZOLE (EC) 40 MG TAB PO SCH (06:05)
--- NOTE | 2018-12-05 07:07 | PN ---
Date/Time of Note Date/Time of Note DATE: 12/05/18 TIME: 07:06 Assessment/Plan VTE Prophylaxis Risk score (from Nsg)>0 risk: 3 SCD applied (from Nsg): Yes Lines/Catheters IV Catheter Type (from Nrsg): Saline Lock Urinary Cath still in place: No Assessment/Plan Assessment/Plan Assessment/Plan -Acute bronchitis with asthma exacerbation, Dr. Chun is following in pulmonology consultation. Continue DuoNeb and Zithromax. -Chest pain, rule out acute coronary syndrome. cardiac enzymes negative x3, stress test is negative for ischemia, continue aspirin, Plavix, nitroglycerin, morphine as needed for pain. Dr. Wren is following in cardiology consultation. -S/p hypertensive emergency. S/p nitroglycerin gtt. Continue Coreg and Procardia. 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 -Dyslipidemia. -Hypothyroidism, continue levothyroxine -Anemia, multifactorial, iron deficiency anemia and of chronic disease -History of total knee replacement -PVD -Obesity with BMI of 38.1. Further recommendations based on clinical course. Plan of care discussed with Dr. Segovia. Result Diagram: 12/04/18 0948 12/04/18 0948 Results 24hrs Laboratory Tests Test 12/04/18 09:48 White Blood Count 5.3 # Red Blood Count 3.13 L Hemoglobin 9.1 L Hematocrit 29.8 L Mean Corpuscular Volume 95.2 Mean Corpuscular Hemoglobin 29.1 Mean Corpuscular Hemoglobin Concent 30.5 L Red Cell Distribution Width 13.4 Platelet Count 305 Mean Platelet Volume 10.6 H Immature Granulocytes % 0.400 Neutrophils % 50.6 Lymphocytes % 30.2 Monocytes % 15.7 H Eosinophils % 2.3 Basophils % 0.8 Nucleated Red Blood Cells % 0.0 Immature Granulocytes # 0.020 Neutrophils # 2.7 Lymphocytes # 1.6 Monocytes # 0.8 Eosinophils # 0.1 Basophils # 0.0 Nucleated Red Blood Cells # 0.0 Sodium Level 139 Potassium Level 4.4 Chloride Level 108 Carbon Dioxide Level 23 Anion Gap 8 Blood Urea Nitrogen 48 H Creatinine 1.73 H Est Glomerular Filtrat Rate mL/min Glucose Level 139 # Calcium Level 8.0 L Exam/Review of Systems Exam Vitals Vital Signs Date Temp Pulse Resp B/P (MAP) Pulse Ox O2 O2 Flow FiO2 Time Delivery Rate 12/05/18 97.9 71 17 124/69 98 04:27 (87) 12/05/18 21 01:14 12/04/18 Nasal 2.0 19:41 Cannula Intake and Output 12/04/18 12/04/18 12/05/18 1515:00 23:00 07:00 IntakeIntake Total 500 ml 480 ml BalanceBalance 500 ml 480 ml Results Results 24hrs Laboratory Tests Test 12/04/18 09:48 White Blood Count 5.3 # Red Blood Count 3.13 L Hemoglobin 9.1 L Hematocrit 29.8 L Mean Corpuscular Volume 95.2 Mean Corpuscular Hemoglobin 29.1 Mean Corpuscular Hemoglobin Concent 30.5 L Red Cell Distribution Width 13.4 Platelet Count 305 Mean Platelet Volume 10.6 H Immature Granulocytes % 0.400 Neutrophils % 50.6 Lymphocytes % 30.2 Monocytes % 15.7 H Eosinophils % 2.3 Basophils % 0.8 Nucleated Red Blood Cells % 0.0 Immature Granulocytes # 0.020 Neutrophils # 2.7 Lymphocytes # 1.6 Monocytes # 0.8 Eosinophils # 0.1 Basophils # 0.0 Nucleated Red Blood Cells # 0.0 Sodium Level 139 Potassium Level 4.4 Chloride Level 108 Carbon Dioxide Level 23 Anion Gap 8 Blood Urea Nitrogen 48 H Creatinine 1.73 H Est Glomerular Filtrat Rate mL/min Glucose Level 139 # Calcium Level 8.0 L Medications Medication Current Medications Albuterol (Ventolin Hfa) 2 puff Q4H RESP THERAPY PRN INH WHEEZING AND SOB Last administered on 11/23/18at 14:56; Admin Dose 2 PUFF; Start 11/22/18 at 18:30 Atorvastatin Calcium (Lipitor) 10 mg QHS PO Last administered on 12/04/18at 20:14; Admin Dose 10 MG; Start 11/22/18 at 21:00 Clopidogrel Bisulfate (plaVIX) 75 mg DAILY PO Last administered on 12/04/18at 09:07; Admin Dose 75 MG; Start 11/23/18 at 09:00 Ferrous Sulfate (Ferrous Sulfate (Ec)) 325 mg DAILY PO Last administered on 12/04/18at 09:06; Admin Dose 325 MG; Start 11/23/18 at 09:00 Levothyroxine Sodium (Synthroid) 25 mcg BEFORE BREAKFAST PO Last administered on 12/05/18 06:04; Admin Dose 25 MCG; Start 11/23/18 at 07:00 Pantoprazole (Protonix Tab) 40 mg AC BREAKFAST PO Last administered on 12/05/18 06:05; Admin Dose 40 MG; Start 11/23/18 at 07:00 IV Flush (NS 3 ml) 3 ml PER PROTOCOL IV ; Start 11/22/18 at 20:30 Ondansetron HCl (Zofran Inj) 4 mg Q6H PRN IV NAUSEA/VOMITING; Start 11/22/18 at 20:30 Aspirin (Aspirin) 81 mg DAILY PO Last administered on 12/04/18 09:07; Admin Dose 81 MG; Start 11/23/18 at 09:00 Nitroglycerin (Nitroglycerin (Sl Tab) 0.4 Mg) 1 tab Q5M PRN SL .CHEST PAIN; Start 11/22/18 at 20:30 Acetaminophen (Tylenol Tab) 650 mg Q6H PRN PO .PAIN 1-3 OR TEMP Last administered on 12/02/18 21:02; Admin Dose 650 MG; Start 11/22/18 at 20:30 Acetaminophen/ Hydrocodone Bitart ([place] (5/325)) 1 tab Q6H PRN PO .PAIN 4-6 Last administered on 11/23/18 16:54; Admin Dose 1 TAB; Start 11/22/18 at 20:30 Morphine Sulfate (morphine) 2 mg Q4H PRN IV .PAIN 7-10 Last administered on 11/23/18 14:59; Admin Dose 2 MG; Start 11/22/18 at 20:30 Zolpidem Tartrate (Ambien) 5 mg QHS PRN PO .INSOMNIA Last administered on 12/02/18 21:02; Admin Dose 5 MG; Start 11/22/18 at 20:30 Docusate Sodium (Colace) 100 mg Q12H PRN PO .CONSTIPATION; Start 11/22/18 at 20:30 Magnesium Hydroxide (Milk Of Mag) 30 ml DAILY PRN PO .CONSTIPATION; Start 11/22/18 at 20:30 Famotidine (Pepcid) 20 mg Q24H PO Last administered on 12/04/18 20:14; Admin Dose 20 MG; Start 11/22/18 at 21:00 Multivit/Ca Carb/ B Cmplx/FA/Prenat (Wen-Justo) 1 tab DAILY PO Last administered on 12/04/18 09:07; Admin Dose 1 TAB; Start 11/23/18 at 09:00 Isosorbide Dinitrate (Isordil) 40 mg TID PO Last administered on 12/04/18 20:14; Admin Dose 40 MG; Start 11/23/18 at 09:00 Fluticasone/ Vilanterol (Breo Ellipta 100-25 Mcg Inh) 1 inh DAILY INH Last administered on 12/04/18 09:08; Admin Dose 1 INH; Start 11/23/18 at 10:00 Nifedipine (Procardia Xl) 60 mg BID PO Last administered on 12/04/18 20:16; Admin Dose 60 MG; Start 11/23/18 at 21:00 Hydralazine HCl (Apresoline) 100 mg TID PO Last administered on 12/04/18 20:13; Admin Dose 100 MG; Start 11/28/18 at 21:00 Carvedilol (Coreg) 12.5 mg BID PO Last administered on 12/04/18 20:14; Admin Dose 12.5 MG; Start 11/28/18 at 21:00 Albuterol/ Ipratropium (Duoneb) 3 ml Q6H RESP THERAPY HHN Last administered on 12/05/18 01:12; Admin Dose 3 ML; Start 11/30/18 at 14:00 Furosemide (Lasix) 20 mg DAILY PO Last administered on 12/04/18 09:07; Admin Dose 20 MG; Start 12/04/18 at 09:00 AMANDA DORSEY Dec 05, 2018 07:07
--- NOTE | 2018-12-05 09:30 | PDOCDIS ---
Discharge Instructions CONDITION [id number] Patient Condition: [place]7m Stable ACTIVITY: [id number] Activity Restrictions: [id number] Slowly Increase Activity Rest between Activity Avoid heavy lifting Do not operate Machinery Do not operate Power Tool Avoid Heavy Housework FOLLOW UP/APPOINTMENTS Follow-up Plan - FU with Primary x 1 week - Call 911 or send to to the nearest ER if symptoms get worse-patient verbalized DW STAFF - AMANDA DORSEY Dec 05, 2018 09:30
--- NOTE | 2018-12-05 09:55 | DS ---
Date/Time of Note Date/Time of Note DATE: 12/05/18 TIME: 09:55 Discharge Summary Admission/Discharge Info Admit Date/Time Nov 22, 2018 at 14:27 Discharge Date/Time Patient Condition: Stable Home Meds Reported Medications Brinzolamide-Brimonidine (Simbrinza 1%-0.2% Oph) 1%-0.2% - 8 Ml Drops.susp, 1 DROP BOTH EYES TID, EA 11/22/18 Albuterol Sulfate* (Proair HFA*) 8.5 Gm Hfa.aer.ad, 2 PUFF INH Q4H PRN for WHEEZING AND SOB, #1 INHALER 11/22/18 Pantoprazole* (Pantoprazole*) 40 Mg Tablet.dr, 40 MG PO AC BREAKFAST, TAB 11/22/18 Nifedipine* (Nifedipine ER*) 30 Mg Tablet.sa, 30 MG PO DAILY, TAB.SA 11/22/18 [Nephro-Justo] No Conflict Check, 1 TAB PO DAILY PRN for DIRECTED 11/22/18 Losartan Potassium* (Losartan Potassium*) 50 Mg Tablet, 50 MG PO DAILY, TAB 11/22/18 Levothyroxine Sodium* (Levothyroxine Sodium*) 25 Mcg Tablet, 25 MCG PO BEFORE BREAKFAST, #30 TAB 11/22/18 Isosorbide Dinitrate* (Isordil*) 40 Mg Tablet, 40 MG PO TID, TAB 11/22/18 Hydralazine Hcl* (Hydralazine Hcl*) 100 Mg Tablet, 100 MG PO BID, #90 TAB 11/22/18 Furosemide* (Furosemide*) 40 Mg Tablet, 40 MG PO DAILY, TAB 11/22/18 Ferrous Sulfate* (Ferrous Sulfate*) 325 Mg Tabec, 325 MG PO DAILY, TAB 11/22/18 Clopidogrel Bisulfate* (Clopidogrel Bisulfate*) 75 Mg Tablet, 75 MG PO DAILY, #30 TAB 11/22/18 Carvedilol* (Carvedilol*) 6.25 Mg Tablet, 6.25 MG PO BID, #60 TAB 11/22/18 Capsaicin (Capsaicin) 42.5 Gm Cream.gm., 1 APPLIC TOP QID, #1 TUB 11/22/18 Atorvastatin Calcium (Atorvastatin Calcium) 10 Mg Tablet, 10 MG PO QHS, #30 TAB 6/10/19 Salmeterol Xinaf-Fluticasone* (Advair*) 100/50 Diskus Inhaler, 1 INH INHALATION BID, #1 INHALER 11/22/18 Follow-up Plan - FU with Primary x 1 week - Call 911 or send to to the nearest ER if symptoms get worse-patient verbalized DW STAFF - Primary Care Provider Kristen Chu MD Pending Labs Laboratory Tests Test 12/05/18 07:28 White Blood Count 6.8 10^3/ul (4.8-10.8) Red Blood Count 3.06 10^6/ul (4.20-5.40) Hemoglobin 8.9 g/dl (12.0-16.0) Hematocrit 28.7 % (37.0-47.0) Mean Corpuscular Volume 93.8 fl (82.0-101.0) Mean Corpuscular Hemoglobin 29.1 pg (29.0-33.0) Mean Corpuscular Hemoglobin Concent 31.0 g/dl (32.0-37.0) Red Cell Distribution Width 13.2 % (11.5-14.5) Platelet Count 273 10^3/UL (140-415) Mean Platelet Volume 10.5 fl (7.4-10.4) Immature Granulocytes % 0.300 % (0.001-0.429) Neutrophils % 50.6 % (39.0-77.0) Lymphocytes % 33.0 % (15.0-51.0) Monocytes % 11.9 % (0.0-11.0) Eosinophils % 3.6 % (0.0-7.0) Basophils % 0.6 % (0.0-2.0) Nucleated Red Blood Cells % 0.0 /100WBC (0.0-0.0) Immature Granulocytes # 0.020 10^3/ul (0.0-0.031) Neutrophils # 3.4 10^3/ul (1.6-7.5) Lymphocytes # 2.2 10^3/ul (0.8-2.9) Monocytes # 0.8 10^3/ul (0.3-0.9) Eosinophils # 0.2 10^3/ul (0.0-0.5) Basophils # 0.0 10^3/ul (0.0-0.1) Nucleated Red Blood Cells # 0.0 10^3/ul (0.0-0.0) Sodium Level 141 mmol/L (135-144) Potassium Level 4.4 mmol/L (3.5-5.1) Chloride Level 106 mmol/L (97-110) Carbon Dioxide Level 24 mmol/L (21-31) Anion Gap 11 (5-13) Blood Urea Nitrogen 45 mg/dl (7-20) Creatinine 1.70 mg/dl (0.44-1.00) Est Glomerular Filtrat Rate mL/min mL/min (>60) Glucose Level 90 mg/dl (70-220) Calcium Level 8.1 mg/dl (8.4-10.2) AMANDA DORSEY Dec 05, 2018 09:55
[2018-12-05] MEDS: FERROUS SULFATE (EC) 325 MG TAB PO SCH (10:18)
[2018-12-05] MEDS: ASPIRIN 81 MG TAB PO SCH (10:18)
[2018-12-05] MEDS: FLUTICASONE/VILANTEROL 100-25 INH SCH (10:21)
[2018-12-05] MEDS: ISOSORBIDE DINITRATE 20 MG TAB PO SCH ×2 (10:22→12:24)
[2018-12-05] MEDS: MULTIVIT/CA CARB/B CMPLX/FA TAB PO SCH (10:22)
[2018-12-05] MEDS: FUROSEMIDE 20 MG TAB PO SCH (10:22)
[2018-12-05] MEDS: NIFEdipine (XL) 60 MG TAB PO SCH (10:23)
[2018-12-05] MEDS: CLOPIDOGREL 75 MG TAB PO SCH (10:23)
--- NOTE | 2018-12-05 13:25 | PN ---
DATE: 12/05/2018 SUBJECTIVE: Chart was reviewed. The patient is on room air, saturating 94% and considerably feeling better. PHYSICAL EXAMINATION: VITAL SIGNS: Blood pressure 109/60, pulse 77, respirations 16, temperature 97.9. HEENT: Pupils are equal and react to light. NECK: Supple. No JVD noted, no cervical adenopathy noted. LUNGS: Fair breath sounds bilaterally. CARDIOVASCULAR: S1, S2 normal. ABDOMEN: Soft, nontender. No organomegaly, masses noted. EXTREMITIES: No clubbing, cyanosis or edema noted. NEUROLOGICAL: Awake and alert. LABORATORY DATA: WBC 6.8, hemoglobin 8.9, hematocrit 28.7, platelets 273. Sodium 141, potassium 4.4 , chloride 106, CO2 of 24, BUN 45, creatinine 1.70, glucose 90. IMPRESSION: 1. Exacerbation of asthma, clinically better. 2. Chronic kidney disease. 3. History of hypertension. 4. History of hypothyroidism. 5. Peripheral vascular disease. PLAN: The patient is okay for discharge with inhaled steroids and bronchodilators. Dictated By: CHASIDY COTTER MD, MA/SANA Conf#: [id number] DID#: [id number] CC: YOSHI GARG MD; KERMIT DONOHUE MD;*End*
--- NOTE | 2018-12-05 14:02 | CONS ---
Consult Date/Type/Reason Admit Date/Time Nov 22, 2018 at 14:27 Initial Consult Date 11/26/18 Requesting Provider: YOSHI GARG MD Date/Time of Note DATE: 12/05/18 TIME: 14:00 Subjective NO acute events - pt stable overall - in good fluid status - BP well maintained - dispo planing soon ROS: No fever, no chills, no nausea, no vomiting, no diarrhea/constipation No recent weight changes No chest pain, no PND, no orthopnea - improved SOB No dizziness, blurred vision No thirst, no heat or cold intolerance Objective Vitals Vital Signs Date Temp Pulse Resp B/P (MAP) Pulse Ox O2 O2 Flow FiO2 Time Delivery Rate 12/05/18 70 13:24 12/05/18 148/68 12:24 (94) 12/05/18 97.9 16 94 11:00 12/05/18 21 09:52 12/05/18 Nasal 2.0 08:15 Cannula Intake and Output 12/04/18 12/04/18 12/05/18 1515:00 23:00 07:00 IntakeIntake Total 500 ml 480 ml BalanceBalance 500 ml 480 ml Exam General: WN/WD/NAD, AOx 3 HEENT: Unicetric/atraumatic/EOMI ( follow commands) NECK: JVD elevated, no thyromegaly Lymph: no lymphadenopathy HEART: regular with no S3, II/ systolic murmur at apex, PMI L LUNGS: Coarse sounds ABD: soft, NT, ND, +BS : Intact Neuro: non focal SKIN: chronic changes EXT: trace edema Results/Medications Result Diagram: 12/05/1872712/05/18 0728 Results 24 hrs Laboratory Tests Test 12/05/18 07:28 White Blood Count 6.8 # Red Blood Count 3.06 L Hemoglobin 8.9 L Hematocrit 28.7 L Mean Corpuscular Volume 93.8 Mean Corpuscular Hemoglobin 29.1 Mean Corpuscular Hemoglobin Concent 31.0 L Red Cell Distribution Width 13.2 Platelet Count 273 Mean Platelet Volume 10.5 H Immature Granulocytes % 0.300 Neutrophils % 50.6 Lymphocytes % 33.0 Monocytes % 11.9 H Eosinophils % 3.6 Basophils % 0.6 Nucleated Red Blood Cells % 0.0 Immature Granulocytes # 0.020 Neutrophils # 3.4 Lymphocytes # 2.2 Monocytes # 0.8 Eosinophils # 0.2 Basophils # 0.0 Nucleated Red Blood Cells # 0.0 Sodium Level 141 Potassium Level 4.4 Chloride Level 106 Carbon Dioxide Level 24 Anion Gap 11 Blood Urea Nitrogen 45 H Creatinine 1.70 H Est Glomerular Filtrat Rate mL/min Glucose Level 90 # Calcium Level 8.1 L Home Meds Reported Medications Brinzolamide-Brimonidine (Simbrinza 1%-0.2% Oph) 1%-0.2% - 8 Ml Drops.susp, 1 DR OP BOTH EYES TID, EA 11/22/18 Albuterol Sulfate* (Proair HFA*) 8.5 Gm Hfa.aer.ad, 2 PUFF INH Q4H PRN for WHEEZING AND SOB, #1 INHALER 11/22/18 Pantoprazole* (Pantoprazole*) 40 Mg Tablet.dr, 40 MG PO AC BREAKFAST, TAB 11/22/18 Nifedipine* (Nifedipine ER*) 30 Mg Tablet.sa, 30 MG PO DAILY, TAB.SA 11/22/18 [Nephro-Justo] No Conflict Check, 1 TAB PO DAILY PRN for DIRECTED 11/22/18 Losartan Potassium* (Losartan Potassium*) 50 Mg Tablet, 50 MG PO DAILY, TAB 11/22/18 Levothyroxine Sodium* (Levothyroxine Sodium*) 25 Mcg Tablet, 25 MCG PO BEFORE BREAKFAST, #30 TAB 11/22/18 Isosorbide Dinitrate* (Isordil*) 40 Mg Tablet, 40 MG PO TID, TAB 11/22/18 Hydralazine Hcl* (Hydralazine Hcl*) 100 Mg Tablet, 100 MG PO BID, #90 TAB 11/22/18 Furosemide* (Furosemide*) 40 Mg Tablet, 40 MG PO DAILY, TAB 11/22/18 Ferrous Sulfate* (Ferrous Sulfate*) 325 Mg Tabec, 325 MG PO DAILY, TAB 11/22/18 Clopidogrel Bisulfate* (Clopidogrel Bisulfate*) 75 Mg Tablet, 75 MG PO DAILY, #30 TAB 11/22/18 Carvedilol* (Carvedilol*) 6.25 Mg Tablet, 6.25 MG PO BID, #60 TAB 11/22/18 Capsaicin (Capsaicin) 42.5 Gm Cream.gm., 1 APPLIC TOP QID, #1 TUB 11/22/18 Atorvastatin Calcium (Atorvastatin Calcium) 10 Mg Tablet, 10 MG PO QHS, #30 TAB 11/22/18 Salmeterol Xinaf-Fluticasone* (Advair*) 100/50 Diskus Inhaler, 1 INH INHALATION BID, #1 INHALER 11/22/18 Medications Current Medications Albuterol (Ventolin Hfa) 2 puff Q4H RESP THERAPY PRN INH WHEEZING AND SOB Last administered on 11/23/18at 14:56; Admin Dose 2 PUFF; Start 11/22/18 at 18:30 Atorvastatin Calcium (Lipitor) 10 mg QHS PO Last administered on 12/04/18 20:14; Admin Dose 10 MG; Start 11/22/18 at 21:00 Clopidogrel Bisulfate (plaVIX) 75 mg DAILY PO Last administered on 12/05/18 10:23; Admin Dose 75 MG; Start 11/23/18 at 09:00 Ferrous Sulfate (Ferrous Sulfate (Ec)) 325 mg DAILY PO Last administered on 12/05/18 10:18; Admin Dose 325 MG; Start 11/23/18 at 09:00 Levothyroxine Sodium (Synthroid) 25 mcg BEFORE BREAKFAST PO Last administered on 12/05/18 06:04; Admin Dose 25 MCG; Start 11/23/18 at 07:00 Pantoprazole (Protonix Tab) 40 mg AC BREAKFAST PO Last administered on 12/05/18 06:05; Admin Dose 40 MG; Start 11/23/18 at 07:00 IV Flush (NS 3 ml) 3 ml PER PROTOCOL IV ; Start 11/22/18 at 20:30 Ondansetron HCl (Zofran Inj) 4 mg Q6H PRN IV NAUSEA/VOMITING; Start 11/22/18 at 20:30 Aspirin (Aspirin) 81 mg DAILY PO Last administered on 12/05/18 10:18; Admin Dose 81 MG; Start 11/23/18 at 09:00 Nitroglycerin (Nitroglycerin (Sl Tab) 0.4 Mg) 1 tab Q5M PRN SL .CHEST PAIN; Start 11/22/18 at 20:30 Acetaminophen (Tylenol Tab) 650 mg Q6H PRN PO .PAIN 1-3 OR TEMP Last administered on 12/02/18at 21:02; Admin Dose 650 MG; Start 11/22/18 at 20:30 Acetaminophen/ Hydrocodone Bitart ([place] (5/325)) 1 tab Q6H PRN PO .PAIN 4-6 Last administered on 11/23/18 16:54; Admin Dose 1 TAB; Start 11/22/18 at 20:30 Morphine Sulfate (morphine) 2 mg Q4H PRN IV .PAIN 7-10 Last administered on 11/23/18 14:59; Admin Dose 2 MG; Start 11/22/18 at 20:30 Zolpidem Tartrate (Ambien) 5 mg QHS PRN PO .INSOMNIA Last administered on 12/02/18 21:02; Admin Dose 5 MG; Start 11/22/18 at 20:30 Docusate Sodium (Colace) 100 mg Q12H PRN PO .CONSTIPATION; Start 11/22/18 at 20:30 Magnesium Hydroxide (Milk Of Mag) 30 ml DAILY PRN PO .CONSTIPATION; Start 11/22/18 at 20:30 Famotidine (Pepcid) 20 mg Q24H PO Last administered on 12/04/18 20:14; Admin Dose 20 MG; Start 11/22/18 at 21:00 Multivit/Ca Carb/ B Cmplx/FA/Prenat (Wen-Justo) 1 tab DAILY PO Last administered on 12/05/18 10:22; Admin Dose 1 TAB; Start 11/23/18 at 09:00 Isosorbide Dinitrate (Isordil) 40 mg TID PO Last administered on 12/05/18 12:24; Admin Dose 40 MG; Start 11/23/18 at 09:00 Fluticasone/ Vilanterol (Breo Ellipta 100-25 Mcg Inh) 1 inh DAILY INH Last administered on 12/05/18 10:21; Admin Dose 1 INH; Start 11/23/18 at 10:00 Nifedipine (Procardia Xl) 60 mg BID PO Last administered on 12/05/18 10:23; Admin Dose 60 MG; Start 11/23/18 at 21:00 Hydralazine HCl (Apresoline) 100 mg TID PO Last administered on 12/05/18 12:24; Admin Dose 100 MG; Start 11/28/18 at 21:00 Carvedilol (Coreg) 12.5 mg BID PO Last administered on 6/23/19at 10:22; Admin Dose 12.5 MG; Start 11/28/18 at 21:00 Albuterol/ Ipratropium (Duoneb) 3 ml Q6H RESP THERAPY HHN Last administered on 12/05/18at 09:52; Admin Dose 3 ML; Start 11/30/18 at 14:00 Furosemide (Lasix) 20 mg DAILY PO Last administered on 12/05/18 10:22; Admin Dose 20 MG; Start 12/04/18 at 09:00 Assessment/Plan Hospital Course (Demo Recall) 1.Chest pain-neg trop x 3/NL EF by echo 07/03. NO ischemia by stress and normal EF - no CP now - no focal ectopy on tele. NO intervention needed. Improve overall. 2.HTN-improved on current regimen - will monitor with increased Cr now at 1.73 to 1.70 - stable overall. RENAL team Rx. 3.renal failure-acute on chronic - renal team follows, avoid nephrotoxic meds - improved. 4.Hypothyroid - replaced. 5. PAD - con'r current therapy. 6. DD - acute on chronic - improved with Rx. Improved fluid status. 7. Anemia - H/H 8.9 - no active bleeding noted. ADONAY PATEL MD Dec 05, 2018 14:02
--- NOTE | 2018-12-05 15:59 | CONS ---
Assessment/Plan Assessment/Plan Assessment/Plan (Daily) 1. acute Kidney injury on CKD III due to hemodynamics and prerenal azotemia 2. 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 H/o HL 6. H/o Hypothyroidism 7. H/o PAD Plan: creatinine trended down lasix has been stopped Procardia Xl for HTN control pt previously had a full CKD work up - no need ot repeat it will continue to follow up Ok to d/c with outpatient nephrology follow up Consultation Date/Type/Reason Admit Date/Time Nov 22, 2018 at 14:27 Initial Consult Date 11/30/18 Type of Consult NEPHROLOGY Requesting Provider: YOSHI GARG MD Date/Time of Note DATE: 12/05/18 TIME: 15:59 Exam/Review of Systems Exam Vitals Vital Signs Date Temp Pulse Resp B/P (MAP) Pulse Ox O2 O2 Flow FiO2 Time Delivery Rate 12/05/18 97.8 82 17 137/65 96 15:27 (89) 12/05/18 21 14:10 12/05/18 2.0 14:02 12/05/18 Nasal 08:15 Cannula Intake and Output 12/04/18 12/04/18 12/05/18 1515:00 23:00 07:00 IntakeIntake Total 500 ml 480 ml BalanceBalance 500 ml 480 ml Results Result Diagram: 12/05/18 0728 12/05/18 0728 Results 24hrs Laboratory Tests Test 12/05/18 07:28 White Blood Count 6.8 # Red Blood Count 3.06 L Hemoglobin 8.9 L Hematocrit 28.7 L Mean Corpuscular Volume 93.8 Mean Corpuscular Hemoglobin 29.1 Mean Corpuscular Hemoglobin Concent 31.0 L Red Cell Distribution Width 13.2 Platelet Count 273 Mean Platelet Volume 10.5 H Immature Granulocytes % 0.300 Neutrophils % 50.6 Lymphocytes % 33.0 Monocytes % 11.9 H Eosinophils % 3.6 Basophils % 0.6 Nucleated Red Blood Cells % 0.0 Immature Granulocytes # 0.020 Neutrophils # 3.4 Lymphocytes # 2.2 Monocytes # 0.8 Eosinophils # 0.2 Basophils # 0.0 Nucleated Red Blood Cells # 0.0 Sodium Level 141 Potassium Level 4.4 Chloride Level 106 Carbon Dioxide Level 24 Anion Gap 11 Blood Urea Nitrogen 45 H Creatinine 1.70 H Est Glomerular Filtrat Rate mL/min Glucose Level 90 # Calcium Level 8.1 L Medications Medication Current Medications Albuterol (Ventolin Hfa) 2 puff Q4H RESP THERAPY PRN INH WHEEZING AND SOB Last administered on 11/23/18 14:56; Admin Dose 2 PUFF; Start 11/22/18 at 18:30 Atorvastatin Calcium (Lipitor) 10 mg QHS PO Last administered on 12/04/18 20:14; Admin Dose 10 MG; Start 11/22/18 at 21:00 Clopidogrel Bisulfate (plaVIX) 75 mg DAILY PO Last administered on 12/05/18 10:23; Admin Dose 75 MG; Start 11/23/18 at 09:00 Ferrous Sulfate (Ferrous Sulfate (Ec)) 325 mg DAILY PO Last administered on 12/05/18 10:18; Admin Dose 325 MG; Start 11/23/18 at 09:00 Levothyroxine Sodium (Synthroid) 25 mcg BEFORE BREAKFAST PO Last administered on 12/05/18 06:04; Admin Dose 25 MCG; Start 11/23/18 at 07:00 Pantoprazole (Protonix Tab) 40 mg AC BREAKFAST PO Last administered on 12/05/18 06:05; Admin Dose 40 MG; Start 11/23/18 at 07:00 IV Flush (NS 3 ml) 3 ml PER PROTOCOL IV ; Start 11/22/18 at 20:30 Ondansetron HCl (Zofran Inj) 4 mg Q6H PRN IV NAUSEA/VOMITING; Start 11/22/18 at 20:30 Aspirin (Aspirin) 81 mg DAILY PO Last administered on 12/05/18 10:18; Admin Dose 81 MG; Start 11/23/18 at 09:00 Nitroglycerin (Nitroglycerin (Sl Tab) 0.4 Mg) 1 tab Q5M PRN SL .CHEST PAIN; Start 11/22/18 at 20:30 Acetaminophen (Tylenol Tab) 650 mg Q6H PRN PO .PAIN 1-3 OR TEMP Last administered on 12/02/18 21:02; Admin Dose 650 MG; Start 11/22/18 at 20:30 Acetaminophen/ Hydrocodone Bitart ([place] (5/325)) 1 tab Q6H PRN PO .PAIN 4-6 Last administered on 11/23/18 16:54; Admin Dose 1 TAB; Start 11/22/18 at 20:30 Morphine Sulfate (morphine) 2 mg Q4H PRN IV .PAIN 7-10 Last administered on 11/23/18 14:59; Admin Dose 2 MG; Start 11/22/18 at 20:30 Zolpidem Tartrate (Ambien) 5 mg QHS PRN PO .INSOMNIA Last administered on 12/02/18 21:02; Admin Dose 5 MG; Start 11/22/18 at 20:30 Docusate Sodium (Colace) 100 mg Q12H PRN PO .CONSTIPATION; Start 11/22/18 at 20:30 Magnesium Hydroxide (Milk Of Mag) 30 ml DAILY PRN PO .CONSTIPATION; Start 11/22/18 at 20:30 Famotidine (Pepcid) 20 mg Q24H PO Last administered on 12/04/18 20:14; Admin Dose 20 MG; Start 11/22/18 at 21:00 Multivit/Ca Carb/ B Cmplx/FA/Prenat (Wen-Justo) 1 tab DAILY PO Last administered on 12/05/18 10:22; Admin Dose 1 TAB; Start 11/23/18 at 09:00 Isosorbide Dinitrate (Isordil) 40 mg TID PO Last administered on 12/05/18 12:24; Admin Dose 40 MG; Start 11/23/18 at 09:00 Fluticasone/ Vilanterol (Breo Ellipta 100-25 Mcg Inh) 1 inh DAILY INH Last administered on 12/05/18 10:21; Admin Dose 1 INH; Start 11/23/18 at 10:00 Nifedipine (Procardia Xl) 60 mg BID PO Last administered on 12/05/18 10:23; Admin Dose 60 MG; Start 11/23/18 at 21:00 Hydralazine HCl (Apresoline) 100 mg TID PO Last administered on 12/05/18 12:24; Admin Dose 100 MG; Start 11/28/18 at 21:00 Carvedilol (Coreg) 12.5 mg BID PO Last administered on 12/05/18 10:22; Admin Dose 12.5 MG; Start 11/28/18 at 21:00 Albuterol/ Ipratropium (Duoneb) 3 ml Q6H RESP THERAPY HHN Last administered on 12/05/18at 14:10; Admin Dose 3 ML; Start 11/30/18 at 14:00 Furosemide (Lasix) 20 mg DAILY PO Last administered on 12/05/18at 10:22; Admin Dose 20 MG; Start 12/04/18 at 09:00 SAMNATHA AMES MD Dec 05, 2018 15:59
== END 2018-12-05 19:42 | DRG 291 ==
LOC: E/R 11:48 → ICU 14:27 → TEL 11-23 17:19 → 6WM 11-23 17:20
PROVIDERS: ADMIT Internal Medicine; ATTEND Internal Medicine
DX: I13.0 Hypertensive heart and chronic kidney disease with heart failure and stage 1 through stage 4 chronic kidney disease, or unspecified chronic kidney disease (principal); I50.33 Acute on chronic diastolic (congestive) heart failure; I16.1 Hypertensive emergency; J45.901 Unspecified asthma with (acute) exacerbation; N17.9 Acute kidney failure, unspecified; J20.9 Acute bronchitis, unspecified; I73.9 Peripheral vascular disease, unspecified; D63.1 Anemia in chronic kidney disease; N18.3 Chronic kidney disease, stage 3 (moderate); E78.5 Hyperlipidemia, unspecified; E03.9 Hypothyroidism, unspecified; D50.9 Iron deficiency anemia, unspecified; Z96.652 Presence of left artificial knee joint; E66.9 Obesity, unspecified; Z68.38 Body mass index [BMI] 38.0-38.9, adult; Z79.82 Long term (current) use of aspirin; Z79.02 Long term (current) use of antithrombotics/antiplatelets
CPT/HCPCS: 36415; 36600; 71045; 78452; 80048; 80053; 80061; 82550; 82553; 82803; 83036; 83880; 84443; 84484; 85025; 85610; 85730; 93005; 93017; 94640; 94664; 96374; 97116; 97162; 97530; A9500; A9505; J1940; J2270; J2785; J2920; J7042; Q5106